=== PATIENT | female | born 1935 | race Caucasian/White ===

== ENCOUNTER 2021-03-31 17:04 | Inpatient (IN) | payer MEDICARE ==
[~2021-03-31] VITALS: Ht 152.4 cm; Wt 73.1 kg
[2021-03-31] MEDS ORDERED: ANTACID SUSP 30 ML UDC (MYLANTA) PO PRN (19:00)
[2021-03-31] MEDS ORDERED: diphenhydrAMINE 25 MG TAB (BENADRYL) PO PRN (19:00)
[2021-03-31] MEDS ORDERED: ONDANSETRON 4 MG (ZOFRAN) ORAL DISSOLVE TAB PO PRN (19:00)
[2021-03-31] MEDS ORDERED: BISACODYL 10 MG SUPP (DULCOLAX) PR PRN (19:00)
[2021-03-31] MEDS ORDERED: hydrALAZINE (APESOLINE) 20 MG/ML VIAL IV PRN (19:00)
[2021-03-31] MEDS ORDERED: ONDANSETRON 4 MG/2 ML (SDV) Z0FRAN IV PRN (19:00)
[2021-03-31] MEDS ORDERED: polyethylene glycoL POWDER 17 GM (MIRALAX) PACK PO PRN (19:00)
[2021-03-31 19:57] VITALS: BP 133/74
--- NOTE | 2021-03-31 19:57 | Diagnostic Imaging Report ---
EXAM: Chest 1 view, AP/PA only. INDICATION: Pneumonia. COMPARISON: None. FINDINGS: Sternotomy. Normal heart size and central pulmonary vascularity. Perihilar consolidation, greater on the left. No pleural effusion or pneumothorax. No acute osseous finding. IMPRESSION: Perihilar atelectasis or infiltrate, greater on the left. Dictated by: Dictated on workstation # [id number]
[2021-03-31] MEDS: NS IV 1000 ML 1,000 ML IV SCH (20:07)
[2021-03-31] MEDS: ENOXAPARIN 40 MG/0.4 ML (LOVENOX) SYR SC SCH (20:07)
[2021-03-31] MEDS: DOCUSATE SODIUM 100 MG (COLACE) CAP PO SCH (20:07)
[2021-03-31] MEDS: SENNOSIDES 8.6 MG (SENOKOT) TAB PO SCH (20:07)
[2021-03-31] MEDS: MELATONIN 3 MG TABLET PO PRN (20:08)
[2021-04-01] VITALS (12 sets, daily range): BP systolic 110–147; BP diastolic 57–77
[2021-04-01] MEDS: NS IV 1000 ML 1,000 ML IV SCH ×2 (00:57→19:29)
[2021-04-01] MEDS ORDERED: CARV12.53 PO (02:56)
[2021-04-01] MEDS ORDERED: SIMV40TA25 PO (02:56)
[2021-04-01] MEDS ORDERED: MIRA50TA PO (02:56)
[2021-04-01] MEDS ORDERED: OMEP40CA6 PO (02:56)
[2021-04-01] MEDS ORDERED: LEVO100T PO (02:56)
[2021-04-01] MEDS ORDERED: TRAM50TA3 PO (02:56)
[2021-04-01] MEDS ORDERED: TOLT4CAP26 PO (02:56)
[2021-04-01] MEDS ORDERED: DOXA2TAB2 PO (03:00)
[2021-04-01] MEDS ORDERED: SOLI5TAB7 PO (03:00)
[2021-04-01] MEDS ORDERED: ASPI-1238 PO (03:00)
[2021-04-01] MEDS ORDERED: HYDR25TA4 PO (03:00)
[2021-04-01 05:48] LABS: BASOPHILS # (AUTO) 0.1 10^3/uL (0.0-0.1); BASOPHILS % (AUTO) 1 % (0-10); EOSINOPHILS # (AUTO) 0.4 10^3/uL (0.0-0.3); EOSINOPHILS % (AUTO) 5 % (0-10); HEMATOCRIT 29 % (35-52); HEMOGLOBIN 8.9 g/dL (11.5-16.0); LYMPHOCYTES # (AUTO) 1.9 10^3/uL (1.0-4.0); LYMPHOCYTES % (AUTO) 27 % (12-44); MEAN CORPUSCULAR HEMOGLOBIN 26 pg (25-34); MEAN CORPUSCULAR HGB CONC 31 g/dL (32-36); MEAN CORPUSCULAR VOLUME 84 fL (80-99); MEAN PLATELET VOLUME 9.4 fL (9.0-12.2); MONOCYTES # (AUTO) 0.8 10^3/uL (0.0-1.0); MONOCYTES % (AUTO) 11 % (0-12); NEUTROPHILS # (AUTO) 3.9 10^3/uL (1.8-7.8); NEUTROPHILS % (AUTO) 55 % (42-75); PLATELET COUNT 325 10^3/uL (130-400); WHITE BLOOD COUNT 7.1 10^3/uL (4.3-11.0)
[2021-04-01] MEDS: MAGNESIUM 1 GM/100 ML IVPB 100 ML IV SCH ×3 (06:00→10:52)
[2021-04-01] MEDS: KCL 20 MEQ TAB (K-DUR) PO SCH (06:00)
[2021-04-01] MEDS: POTASSIUM CL 10MEQ/50ML IVPB 50 ML IV SCH ×3 (06:00→08:04)
[2021-04-01 06:03] LABS: POTASSIUM 3.5 MMOL/L (3.6-5.0)
[2021-04-01 06:04] LABS: CALCIUM 8.2 MG/DL (8.5-10.1)
[2021-04-01 06:08] LABS: CREATININE SERUM 0.6 MG/DL (0.60-1.30)
[2021-04-01 06:11] LABS: MAGNESIUM 1.7 MG/DL (1.6-2.4)
[2021-04-01] MEDS: DOCUSATE SODIUM 100 MG (COLACE) CAP PO SCH ×3 (08:03→20:16)
[2021-04-01] MEDS: SENNOSIDES 8.6 MG (SENOKOT) TAB PO SCH ×3 (08:03→20:19)
--- NOTE | 2021-04-01 09:27 | Consultation - Ortho ---
Consult - Ortho Subjective Date of Exam 04/01/21 Chief Complaint Right Hip Pain HPI/Events since last exam 85 year old female with multiple falls over past couple of weeks. Developed hip pain and had difficulty bearing weight. Seen at [facility] and diagnosed with right hip fracture involving the greater trochanter but concern for intertrochanteric extension. MRI later did demonstrate the extension of the fracture line. She was transferred here for stabilization of the fracture. Medical, Surgical History see admit H&P Social History see admit H&P Family History see admit H&P Review of Systems see admit H&P Allergies: Coded Allergies: No Allergy Information Available (Unverified , 03/31/21) Home Meds Reported Medications Solifenacin Succinate (Solifenacin Succinate) 5 Mg Tablet, 5 MG PO DAILY 04/01/21 Hydrochlorothiazide (Hydrochlorothiazide) 25 Mg Tablet, 25 MG PO DAILY 04/01/21 Doxazosin Mesylate (Doxazosin Mesylate) 2 Mg Tablet, 2 MG PO DAILY 04/01/21 Aspirin (Aspirin EC) 81 Mg Tablet.dr, 81 MG PO DAILY 04/01/21 Tolterodine Tartrate (Tolterodine Tartrate ER) 4 Mg Cap.er.24h, 4 MG PO HS 04/01/21 Carvedilol (Carvedilol) 12.5 Mg Tablet, 12.5 MG PO BID 04/01/21 Mirabegron (Myrbetriq) 50 Mg Tab.er.24h, 50 MG PO DAILY 04/01/21 Simvastatin (Simvastatin) 40 Mg Tablet, 40 MG PO DAILY 04/01/21 Tramadol HCl (Tramadol HCl) 50 Mg Tablet, 100 MG PO Q8H PRN for PAIN-MODERATE (5-7) 04/01/21 Omeprazole (Omeprazole) 40 Mg Capsule.dr, 40 MG PO DAILY 04/01/21 Levothyroxine Sodium (Synthroid) 100 Mcg Tablet, 100 MCG PO DAILY 04/01/21 Objective Exam Right Hip: Skin intact, no shortening, +DF of ankle, distal pulses palpable Vital Signs Vital Signs Date Time Temp Pulse Resp B/P (MAP) Pulse Ox O2 Delivery O2 Flow Rate FiO2 04/01/21 08:00 Room Air 04/01/21 08:00 36.0 68 20 144/70 (94) 95 Room Air 11/18/21 04:09 36.2 61 20 134/77 (96) 96 Room Air 04/01/21 00:15 36.7 71 20 128/58 (81) 95 Room Air 03/31/21 19:57 36.1 74 20 133/74 (93) 97 Room Air 03/31/21 19:15 95 Room Air I & O 04/01/21 06:59 Intake Total 225 ml Output Total 400 ml Balance -175 ml Lab Results Laboratory Tests 04/01/21 05:40: White Blood Count 7.1, Red Blood Count 3.49L, Hemoglobin 8.9L, Hematocrit 29L, Mean Corpuscular Volume 84, Mean Corpuscular Hemoglobin 26, Mean Corpuscular Hemoglobin Concent 31L, Red Cell Distribution Width 17.5H, Platelet Count 325, Mean Platelet Volume 9.4, Immature Granulocyte % (Auto) 1, Neutrophils (%) (Auto) 55, Lymphocytes (%) (Auto) 27, Monocytes (%) (Auto) 11, Eosinophils (%) (Auto) 5, Basophils (%) (Auto) 1, Neutrophils # (Auto) 3.9, Lymphocytes # (Auto) 1.9, Monocytes # (Auto) 0.8, Eosinophils # (Auto) 0.4H, Basophils # (Auto) 0.1, Immature Granulocyte # (Auto) 0.1, Sodium Level 138, Potassium Level 3.5L, Chloride Level 104, Carbon Dioxide Level 25, Anion Gap 9, Blood Urea Nitrogen 7, Creatinine 0.60, Estimat Glomerular Filtration Rate 95, BUN/Creatinine Ratio 12, Glucose Level 88, Calcium Level 8.2L, Magnesium Level 1.7, Procalcitonin 0.04 Imaging Outside films reviewed--x-ray, CT, and MRI--nondisplaced right intertrochanteric femur fracture Assessment and Plan Assessment Right Intertrochanteric Femur Fracture Problem List Right Intertrochanteric Femur Fracture Plan I have recommended proceeding with IM nailing of the right IT femur fracture. Nature of the procedure and the postoperative course were discussed. Risks and benefits were discussed. Will tentatively plan to proceed this PM. Final Diagonsis Right Intertrochanteric Femur Fracture Level of the visit: Level 3 PARMINEDR CHAVEZ MD Apr 01, 2021 09:27
[2021-04-01] MEDS ORDERED: ceFAZolin INJECTION 1,000 MG VIAL IV ONE (09:30)
--- NOTE | 2021-04-01 09:42 | Physical Therapy Progress Note ---
Therapy Progress Note Patient to have surgery to repair right hip. PT will receive orders from orthopedic surgeon. EUSEBIA XAVIER PT Apr 01, 2021 09:42
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
--- NOTE | 2021-04-01 10:39 | Occ Therapy Progress Note ---
Therapy Progress Note Pt is scheduled to have surgery to repair R hip. OT will need new orders from orthopedic surgeon when pt is able to actively participate in OT tx. ANTHONY MINA OT Apr 01, 2021 10:39
[2021-04-01] MEDS ORDERED: LACTATED RINGERS 1,000 ML IV PRN (13:30)
[2021-04-01] MEDS ORDERED: fentaNYL INJ 100 MCG/2 ML AMP ONE (14:59)
[2021-04-01] MEDS ORDERED: proPOfol 200 MG/20 ML (DIPRIVAN) VIAL IV ONE (14:59)
[2021-04-01] MEDS ORDERED: LIDOCAINE PF 2% 5 ML (XYLOCAINE) VIAL ONE (14:59)
[2021-04-01] MEDS ORDERED: HYDR12.56 PO (15:01)
[2021-04-01] MEDS ORDERED: ceFAZolin INJECTION 1,000 MG ONE (16:27)
[2021-04-01] MEDS ORDERED: ROPIVACAINE 5MG/ML 30ML VIAL ONE (17:06)
[2021-04-01] MEDS ORDERED: SEVOFLURANE (ULTANE) 15 ML INHAL SOLN ONE (17:14)
--- NOTE | 2021-04-01 17:29 | Operative Report - Ortho ---
Operative Report Surgeon (s)/Solder Making Supervisor (s) Surgeon PARMINDER CHAVEZ MD Solder Making Supervisor n/a Pre-Operative Diagnosis Right Intertrochanteric Femur Fracture Post-Operative Diagnosis same Operative Report Date of Procedure: Apr 01, 2021 Name of Procedure Performed: Intramedullary nailing of right intertrochanteric femur fracture Description & Findings After obtaining informed consent and marking the patient in the preoperative holding area, the patient was administered IV antibiotics and taken to the operating room. Anesthesia was induced. Patient was transferred to the fracture table. Surgical timeout was taken. The right lower extremity was placed in the traction spar and the left was placed in the well leg gregg. The right lower extremity was prepped and draped in the usual sterile fashion. Incision was made just proximal to the greater trochanter. Blunt dissection was performed down to the tip of the trochanter. A guide wire was placed through a trochanteric entry point. Position of the wire was confirmed using C-arm. An entry reamer was then placed over the guidewire and reamed to the level of the lesser trochanter. A trochanteric gamma nail with a 125 degree angle was selected and assembled on the back table. Nail was inserted through the trochanteric entry point and seated by hand. Position of the nail was confirmed using C-arm. A guide wire was placed for the cephalomedullary screw. Version of the wire was obtained on the lateral. Measurement was taken and the reamer was set to 95 mm. Reamer was used over the guidewire and then the cephalomedullary screw was placed. Position of the cephalomedullary screw was confirmed on C-arm. Set screw was then tightened onto the cephalomedullary screw and then backed off 1/4 turn. Attention was then turned to the distal screw and using the provided guides, a 35 mm screw was placed through the dynamic portion of the distal slot. Final C arm images were obtained, demonstrated appropriate placement of hardware with adequate reduction, and were transferred to PACS. Incision sites were irrigated with normal saline. Closed subcutaneously with 2- 0 vicryl and skin was closed with monae. Dressed with xeroform, 4x4s, ABD, and tape. Patient tolerated the procedure well and was stable to the recovery room. Anesthesia Type General Estimated Blood Loss 100 mL Specimen(s) collected/removed None PARMINDER CHAVEZ MD Apr 01, 2021 17:29
[2021-04-01] MEDS ORDERED: ONDANSETRON 4 MG/2 ML (SDV) Z0FRAN IVP PRN (17:30)
[2021-04-01] MEDS ORDERED: morphine INJ 10 MG/ML 1ML (SYR OR VIAL) IVP ONE (17:30)
[2021-04-01] MEDS: ENOXAPARIN 40 MG/0.4 ML (LOVENOX) SYR SC SCH (18:19)
--- NOTE | 2021-04-01 19:34 | Diagnostic Imaging Report ---
INDICATION: Right hip pinning. IMPRESSION: 63 seconds of fluoroscopy was provided during a right hip pinning. Dictated by: Dictated on workstation # [id number]
[2021-04-01] MEDS ORDERED: morphine INJ 4 MG/ML 1 ML (VIAL/SYRINGE) ONE (20:05)
[2021-04-01] MEDS: MELATONIN 3 MG TABLET PO PRN (20:07)
[2021-04-01] MEDS: morphine INJ 4 MG/ML 1 ML (VIAL/SYRINGE) IVP PRN (20:08)
[2021-04-02 00:06] VITALS: BP 133/60
[2021-04-02] MEDS: morphine INJ 4 MG/ML 1 ML (VIAL/SYRINGE) IVP PRN ×3 (03:34→15:02)
[2021-04-02 03:47] VITALS: BP 141/66
[2021-04-02] MEDS: KCL 20 MEQ TAB (K-DUR) PO SCH ×2 (06:00)
[2021-04-02] MEDS: MAGNESIUM 1 GM/100 ML IVPB 100 ML IV SCH ×2 (06:00)
[2021-04-02] MEDS: POTASSIUM CL 10MEQ/50ML IVPB 50 ML IV SCH ×2 (06:00)
[2021-04-02 06:11] LABS: CALCIUM 7.6 MG/DL (8.5-10.1)
[2021-04-02 06:15] LABS: CREATININE SERUM 0.59 MG/DL (0.60-1.30)
[2021-04-02 06:17] LABS: MAGNESIUM 1.9 MG/DL (1.6-2.4)
[2021-04-02 08:00] VITALS: BP 116/57
[2021-04-02] MEDS: DOCUSATE SODIUM 100 MG (COLACE) CAP PO SCH ×2 (08:02→21:05)
[2021-04-02] MEDS: SENNOSIDES 8.6 MG (SENOKOT) TAB PO SCH ×2 (08:02→21:05)
[2021-04-02 08:10] LABS: HEMOGLOBIN 8.5 g/dL (11.5-16.0)
--- NOTE | 2021-04-02 08:53 | Progress Note - Ortho ---
Progress Note Subjective Date of Exam 04/02/21 Chief Complaint POD #1 Right Hip Gamma Nail HPI/Events since last exam Had difficulty with pain through the night. Appears comfortable this AM. Concerned about starting to bear weight on that side. Wants to return to [facility] for swing bed if needed. Review of Systems not obtained Allergies: Coded Allergies: No Allergy Information Available (Unverified , 03/31/21) Home Meds Reported Medications Hydrochlorothiazide (Hydrochlorothiazide) 12.5 Mg Tablet, 12.5 MG PO DAILY, TAB 04/01/21 Aspirin (Aspirin EC) 81 Mg Tablet.dr, 81 MG PO DAILY 04/01/21 Tolterodine Tartrate (Tolterodine Tartrate ER) 4 Mg Cap.er.24h, 4 MG PO HS, TAB 04/01/21 Carvedilol (Carvedilol) 12.5 Mg Tablet, 12.5 MG PO BID, TAB 04/01/21 Mirabegron (Myrbetriq) 50 Mg Tab.er.24h, 50 MG PO DAILY, TAB 04/01/21 Simvastatin (Simvastatin) 40 Mg Tablet, 40 MG PO DAILY, TAB 04/01/21 Tramadol HCl (Tramadol HCl) 50 Mg Tablet, 50-100 MG PO Q8H PRN for PAIN-MODERATE (5-7) 04/01/21 Omeprazole (Omeprazole) 40 Mg Capsule.dr, 40 MG PO DAILY, CAP 04/01/21 Levothyroxine Sodium (Synthroid) 100 Mcg Tablet, 100 MCG PO DAILY 04/01/21 Discontinued Reported Medications Solifenacin Succinate (Solifenacin Succinate) 5 Mg Tablet, 5 MG PO DAILY 04/01/21 Hydrochlorothiazide (Hydrochlorothiazide) 25 Mg Tablet, 25 MG PO DAILY 04/01/21 Doxazosin Mesylate (Doxazosin Mesylate) 2 Mg Tablet, 2 MG PO DAILY 04/01/21 Objective Exam Right Hip: Dressing C/D/I, +DF of ankle, no s/s of DVT Vital Signs Vital Signs Date Time Temp Pulse Resp B/P (MAP) Pulse Ox O2 Delivery O2 Flow Rate FiO2 04/02/21 08:00 36.2 88 18 116/57 (76) 98 Nasal Cannula 2.00 04/02/21 03:47 36.2 90 18 141/66 (91) 94 Nasal Cannula 2.00 04/02/21 00:06 36.0 89 18 133/60 (84) 96 Nasal Cannula 2.00 04/01/21 20:05 Room Air 04/01/21 19:57 35.9 73 18 134/60 (84) 90 Room Air 04/01/21 19:46 2.00 04/01/21 18:00 Room Air 04/01/21 18:00 36.8 14 134/57 (82) 96 Room Air 04/01/21 17:50 14 126/67 (86) 96 Nasal Cannula 2 04/01/21 17:45 Nasal Cannula 2 04/01/21 17:40 14 116/58 (77) 95 Nasal Cannula 2 04/01/21 17:30 OxyMask 2 04/01/21 17:30 14 137/62 (87) 94 OxyMask 2 04/01/21 17:20 14 120/62 (81) 94 OxyMask 4 04/01/21 17:18 37.4 14 110/58 (75) 95 OxyMask 6 04/01/21 17:18 OxyMask 6 04/01/21 15:55 36.6 71 18 141/63 (89) 95 Room Air 04/01/21 11:44 36.1 67 20 147/66 (93) 96 Room Air I & O 04/02/21 07:00 Intake Total 1375 ml Output Total 880 ml Balance 495 ml Lab Results Laboratory Tests 04/01/21 09:25: SARS-CoV-2 RNA (RT-PCR) Not Detected 04/02/21 05:28: Hemoglobin 8.5L, Hematocrit 28L, Sodium Level 134L, Potassium Level 4.0, Chloride Level 102, Carbon Dioxide Level 22, Anion Gap 10, Blood Urea Nitrogen 7, Creatinine 0.59L, Estimat Glomerular Filtration Rate 97, BUN/Creatinine Ratio 12, Glucose Level 100, Calcium Level 7.6L, Magnesium Level 1.9 Assessment and Plan Assessment s/p Intramedullary Nailing of Right Intertrochanteric Femur Fracture Problem List s/p Intramedullary Nailing of Right Intertrochanteric Femur Fracture Plan PT/OT, DVT prophylaxis, Transfer back to [facility] when ready to proceed with swing Final Diagonsis s/p Intramedullary Nailing of Right Intertrochanteric Femur Fracture Level of the visit: Level 3 (global) PARMINDER CHAVEZ MD Apr 02, 2021 08:53
[2021-04-02] MEDS: NS IV 1000 ML 1,000 ML IV SCH (09:01)
--- NOTE | 2021-04-02 10:34 | Physical Therapy Evaluation ---
PT Evaluation-General Medical Diagnosis Admission Date Mar 31, 2021 at 18:45 Medical Diagnosis: right hip fracture Onset Date: Mar 31, 2021 Therapy Diagnosis Therapy Diagnosis: generalized weakness/debility/impaired mobility Precautions Precautions/Isolations: Fall Prevention, Standard Precautions Weight Bear Status Right Lower Extremity: Right Weight Bearing/Tolerated Left Lower Extremity: Left Full Weight Bearing Referral Physician: Barbara Reason for Referral: Evaluation/Treatment Medical History Pertinent Medical History: HTN, Hypothroidism Current History multiple falls per patient report/transfer from [facility] due to hip fracture Reviewed History: Yes Social History Home: Single Level Current Living Status: Alone Entry Into Home: Stairs With Railing PT Steps Into Home: 3 Prior Prior Level of Function SCALE: Activities may be completed with or without assistive devices. 2-Nbhpjqlzrl-cvfmxrr completes the activity by him/herself with no assistance from a helper. 5-Set-up or Clean-up Assistance-helper sets up or cleans up; patient completes activity. [place] assists only prior to or following the activity. 4-Supervision or Touching Assistance-helper provides verbal cues and/or touching/steadying and/or contact guard assistance as patient completes activity. Assistance may be provided throughout the activity or intermittently. 3-Partial/Moderate Assistance-helper does LESS THAN HALF the effort. [place] lifts, holds or supports trunk or limbs, but provides less than half the effort. 2-Substantial/Maximal Assistance-helper does MORE THAN HALF the effort. [place] lifts or holds trunk or limbs and provides more than half the effort. 5-Iftwibzym-gkzswy does ALL the effort. Patient does none of the effort to complete the activity. Or, the assistance of 2 or more helpers is required for the patient to complete the activity. If activity was not attempted, code reason: 7-Patient Refused. 9-Not Applicable-not attempted and the patient did not perform the activity before the current illness, exacerbation or injury. 10-Not Attempted due to Environmental Limitations-(lack of equipment, weather restraints, etc.). 88-Not Attempted due to Medical Conditions or Safety Concerns. Bed Mobility: 6 Transfers (B,C,W/C): 6 Gait: 6 Stairs: 6 Indoor Mobility (Ambulation): Independent Stairs: Independent Prior Devices Use: None PT Evaluation-Current Subjective Patient reluctantly agrees to PT. Pain Numeric Pain Scale: 10-Worst Possible Pain Location: Right Location Body Site: Hip Pain Description: Acute Objective Patient Orientation: Person, Time, Situation Attachments: Oxygen, IV ROM/Strength ROM Lower Extremities right LE limited due to pain/left LE WFL Strength Lower Extremities right LE 2-/5 grossly/left LE 3-/5 grossly Integumentary/Posture Integumentary refer to nursing notes Bladder Incontinence: Yes Posture WFL Neuromuscular (Tone, Coordination, Reflexes) grossly intact Sensory Vision: Functional Hearing: Functional Transfers Roll Left to Right (QC): 1 (x 2) Sit to Lying (QC): 1 (x 2) Lying to Sitting/Side of Bed(Q: 1 (x 2) Sit to Stand (QC): 7 Chair/Xct-ci-Zbean Xfer(QC): 7 Gait Does the Patient Walk?: No and Walking Goal IS indicated Walk 10 feet (QC): 88 Walk 50 ft with 2 Turns(QC): 88 Walk 150 ft (QC): 88 Balance Sitting Static: Fair Sitting Dynamic: Fair Assessment/Needs 85 y.o. female, will benefit from skilled PT to address functional strength and mobility. Patient currently tolerates minimal activity and yells in pain. Per report, patient has a "sensitivity" to pain medication. Due to patient low tolerance with activity, PT will begin with 6/wk and increase to 11/wk as patient tolerates more. Rehab Potential: Fair PT Short Term Goals Short Term Goals Time Frame: Apr 13, 2021 Roll Left & Right: 2 Sit to lyin Lying to sitting on side of be: 2 Sit to stand: 2 Chair/mza-iu-dbhpr transfer: 2 PT Acoustical Carpenter Goals Nursing Home Goals PT Nursing Home Goals Time Frame: May 08, 2021 Roll Left & Right (QC): 3 Sit to Lying (QC): 3 Lying-Sitting on Side/Bed(QC): 3 Sit to Stand (QC): 3 Chair/Apv-vo-Qjwur Xfer(QC): 3 Toilet Transfer (QC): 3 Walk 10 feet (QC): 3 Walk 50ft with 2 Turns (QC): 3 Walk 150 ft (QC): 3 PT Plan Problem List Problem List: Activity Tolerance, Functional Strength, Safety, Balance, Gait, Transfer, Bed Mobility, ROM, Other (pain control) Treatment/Plan Treatment Plan: Continue Plan of Care Treatment Plan: Bed Mobility, Education, Functional Activity Ciera, Functional Strength, Gait, Safety, Therapeutic Exercise, Transfers Treatment Duration: May 08, 2021 Frequency: 6 times per week (then increase to 11/wk as patient improves with pain tolerance) Estimated Hrs Per Day: .25 hour per day Patient and/or Family Agrees t: Yes Discharge Recommendations Therapy Discharge Recommendati: Other, See Comments (long term) Time/GCodes Time In: 945 Time Out: 1000 Total Billed Treatment Time: 15 [facility] EUSEB[facility] XAVIER PT Apr 02, 2021 10:33
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
[2021-04-02] MEDS ORDERED: RT-ALBUTEROL SULF 2.5 MG/3 ML PRE-MIX VIAL IH PRN (11:30)
[2021-04-02] MEDS ORDERED: EPINEPHrine INJECTION 1 MG/ML AMP IM PRN (11:30)
[2021-04-02] MEDS ORDERED: HYDROCORTISONE 100 MG/2 ML (Solu-CORTEF) VIAL IV PRN (11:30)
[2021-04-02] MEDS ORDERED: NS IV 500 ML 500 ML IV SCH (11:30)
[2021-04-02] MEDS ORDERED: diphenhydrAMINE 50 MG/ML INJ (BENADRYL) IV PRN (11:30)
[2021-04-02 11:45] VITALS: BP 128/60
[2021-04-02] MEDS ORDERED: IRON DEXTRAN INJECTION 25 MG in NS (IVPB) 5.75 ML IV NR (12:00)
[2021-04-02] MEDS ORDERED: IRON DEXTRAN INJECTION 1,000 MG in NS (IVPB) 250 ML IV NR (12:30)
--- NOTE | 2021-04-02 13:51 | Occupational Therapy Eval ---
OT Evaluation-General/PLF Medical Diagnosis Admission Date Mar 31, 2021 at 18:45 Medical Diagnosis: right hip fracture Onset Date: Mar 31, 2021 Therapy Diagnosis Therapy Diagnosis: decreased ADL status Precautions Precautions/Isolations: Fall Prevention, Standard Precautions Referral Physician: Barbara Referral Reason: Evaluation/Treatment Medical History Pertinent Medical History: HTN, Hypothroidism Additional Medical History HTN, hypothyroidism, GERD, Current History s/p R IM nail 04/01/21. Pt transferred from [facility] due to hip fracture 03/28/21 requiring surgical intervention. Social History Home: Single Level Current Living Status: Alone Entry Into Home: Stairs With Railing Steps Into Home: 3 ADL-Prior Level of Function SCALE: Activities may be completed with or without assistive devices. 8-Ipsuhbnqps-kbcfsmj completes the activity by him/herself with no assistance from a helper. 5-Set-up or Clean-up Assistance-helper sets up or cleans up; patient completes activity. [place] assists only prior to or following the activity. 4-Supervision or Touching Assistance-helper provides verbal cues and/or touching/steadying and/or contact guard assistance as patient completes activity. Assistance may be provided throughout the activity or intermittently. 3-Partial/Moderate Assistance-helper does LESS THAN HALF the effort. [place] lifts, holds or supports trunk or limbs, but provides less than half the effort. 2-Substantial/Maximal Assistance-helper does MORE THAN HALF the effort. [place] lifts or holds trunk or limbs and provides more than half the effort. 3-Ovqdpjnsd-dvfclu does ALL the effort. Patient does none of the effort to complete the activity. Or, the assistance of 2 or more helpers is required for the patient to complete the activity. If activity was not attempted, code reason: 7-Patient Refused. 9-Not Applicable-not attempted and the patient did not perform the activity before the current illness, exacerbation or injury. 10-Not Attempted due to Environmental Limitations-(lack of equipment, weather restraints, etc.). 88-Not Attempted due to Medical Conditions or Safety Concerns. ADL PLOF Comments Pt reports IND with ADLs and functional mobility at PLOF, no AD/AE. She lives by herself, has a walk in shower with a shower chair. Self Care: Independent Functional Cognition: Independent DME/Equipment: Bath Chair, Shower OT Current Status Subjective Pt in bed, having difficulty staying awake during session. Pt reports this is due to pain medications, pt's nurse aware. Mental Status/Objective Patient Orientation: Person, Place, Situation Current Upper Extremity ROM WFL, BUE shoulder flexion to approx 150 degrees Upper Extremity Coordination WFL Upper Extremity Strength grossly 3/5 ADL-Treatment Eating (QC): 5 (set up based on clincial judgment) Oral Hygiene (QC): 5 (based on clincial judgment and pt report.) Shower/Bathe Self (QC): 1 (based on clincial judgment, assist x2 for task.) Lower Body Dressing (QC): 1 (based on clincial judgment, assist x2 for task.) On/Off Footwear (QC): 1 (based on clincial judgment.) Toileting Hygiene (QC): 1 (based on clincial judgment, assist x2 for task.) Other Treatments Pt in bed, OT introduced self to pt and educated pt on purpose and benefit of OT. Pt verbalized understanding. Pt provided information about PLOF and home set up to her ability, but she kept closing her eyes and falling asleep. Pt easily awoken throughout session. Pt declined oral care as she has already completed earlier today. Pt had hair brush in her hands, able to comb her hair with set up assistance. Pt participated in UE screen. Pt currently unsafe to perform OOB activities on this date, as she keeps falling asleep during session. Pt requests to rest at this time. Per PT evaluation, pt currently requires dependent assistance for rolling left to right and supine to sit EOB. Post tx, pt in bed, call light in reach and all needs met. Education OT Patient Education: Correct positioning, Modified ADL techniques, Progress toward Goal/Update tx plan, Purpose of tx/functional activities, Rehab process Teaching Recipient: Patient Teaching Methods: Discussion Response to Teaching: Reinforcement Needed OT Data Processing Control Clerk Goals Data Processing Control Clerk Goals Time Frame: Apr 16, 2021 Eating (QC): 6 Oral Hygiene (QC): 6 Toileting Hygiene (QC): 3 Shower/Bathe Self (QC): 3 Upper Body Dressing (QC): 5 Lower Body Dressing (QC): 3 On/Off Footwear (QC): 3 Additional Goals: 1-Demonstrate ADL Tasks, 2-Verbalize Understanding, 3-ImproveStrength/Ciera 1=Demonstrate adherence to instructed precautions during ADL tasks. 2=Patient will verbalize/demonstrate understanding of assistive devices/modifications for ADL. 3=Patient will improve strength/tolerance for activity to enable patient to perform ADL's. OT Education/Plan Problem List/Assessment Assessment: Decreased Activ Tolerance, Decreased UE Strength, Impaired Funct Balance, Impaired I ADL's, Impaired Self-Care Skills Discharge Recommendations Plan/Recommendations: Continue POC Therapy Discharge Recommendati: Other, See Comments (SNF) Treatment Plan/Plan of Care Patient would benefit from OT for education, treatment and training to promote independence in ADL's, mobility, safety and/or upper extremity function for ADL's. Plan of Care: ADL Retraining, Functional Mobility, UE Funct Exercise/Act Treatment Duration: Apr 16, 2021 Frequency: 3 times per week (3-5 times per week) Rehab Potential: Fair Time/GCodes Start Time: 13:20 Stop Time: 13:30 Total Time Billed (hr/min): 10 Billed Treatment Time 1, ANTHONY [facility] OT Apr 02, 2021 13:51
--- NOTE | 2021-04-02 14:18 | Anesthesia-General Post-Op ---
General Patient Condition Mental Status/LOC: Same as Preop Cardiovascular: Satisfactory Nausea/Vomiting: Absent Respiratory: Satisfactory Pain: Controlled Complications: Absent Post Op Complications Complications None Follow Up Care/Instructions Patient Instructions None needed. Anesthesia/Patient Condition Patient Condition Patient is doing well, no complaints, stable vital signs, no apparent adverse anesthesia problems. No complications reported per nursing. ЕЛЕНА SUAREZ CRNA Apr 02, 2021 14:18
[2021-04-02 15:49] VITALS: BP 122/59
[2021-04-02] MEDS ORDERED: LIDOCAINE UROJET 2% GEL 10 ML PKG ONE (16:55)
[2021-04-02] MEDS: ENOXAPARIN 40 MG/0.4 ML (LOVENOX) SYR SC SCH (18:12)
[2021-04-02 20:00] VITALS: BP 127/61
[2021-04-03 00:08] VITALS: BP 112/53
[2021-04-03] MEDS: NS IV 1000 ML 1,000 ML IV SCH ×2 (00:22→15:37)
[2021-04-03 03:44] VITALS: BP 136/73
[2021-04-03 05:50] LABS: HEMOGLOBIN 7.4 g/dL (11.5-16.0)
[2021-04-03 06:09] LABS: POTASSIUM 3.9 MMOL/L (3.6-5.0)
[2021-04-03] MEDS: POTASSIUM CL 10MEQ/50ML IVPB 50 ML IV SCH (06:12)
[2021-04-03] MEDS: KCL 20 MEQ TAB (K-DUR) PO SCH (06:13)
[2021-04-03 06:14] LABS: CREATININE SERUM 0.53 MG/DL (0.60-1.30)
[2021-04-03 06:16] LABS: MAGNESIUM 1.7 MG/DL (1.6-2.4)
[2021-04-03] MEDS: MAGNESIUM 1 GM/100 ML IVPB 100 ML IV SCH ×3 (06:22→08:22)
[2021-04-03 08:00] VITALS: BP 131/60
[2021-04-03] MEDS: DOCUSATE SODIUM 100 MG (COLACE) CAP PO SCH ×2 (08:23→21:18)
[2021-04-03] MEDS: SENNOSIDES 8.6 MG (SENOKOT) TAB PO SCH ×2 (08:23→21:18)
[2021-04-03] MEDS: morphine INJ 4 MG/ML 1 ML (VIAL/SYRINGE) IVP PRN (08:24)
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
--- NOTE | 2021-04-03 10:52 | Physical Therapy Daily Note ---
PT Daily Note-Current Subjective Pt in bed, agreeable with encouragement. Pt apprehensive with all movement, actively resisting assistance. No pain rating provided. Mental Status Patient Orientation: Person, Place, Time, Situation Attachments: SCD's, Oxygen, IV Transfers SCALE: Activities may be completed with or without assistive devices. 8-Spwxhjwsuf-lgdzlzc completes the activity by him/herself with no assistance from a helper. 5-Set-up or Clean-up Assistance-helper sets up or cleans up; patient completes activity. [place] assists only prior to or following the activity. 4-Supervision or Touching Assistance-helper provides verbal cues and/or touching/steadying and/or contact guard assistance as patient completes activity. Assistance may be provided throughout the activity or intermittently. 3-Partial/Moderate Assistance-helper does LESS THAN HALF the effort. [place] lifts, holds or supports trunk or limbs, but provides less than half the effort. 2-Substantial/Maximal Assistance-helper does MORE THAN HALF the effort. [place] lifts or holds trunk or limbs and provides more than half the effort. 8-Sqtnsdxut-bruxit does ALL the effort. Patient does none of the effort to complete the activity. Or, the assistance of 2 or more helpers is required for the patient to complete the activity. If activity was not attempted, code reason: 7-Patient Refused. 9-Not Applicable-not attempted and the patient did not perform the activity before the current illness, exacerbation or injury. 10-Not Attempted due to Environmental Limitations-(lack of equipment, weather restraints, etc.). 88-Not Attempted due to Medical Conditions or Safety Concerns. Roll Left & Right (QC): 1 Sit to Lying (QC): 1 Lying to Sitting/Side of Bed(Q: 1 Sit to Stand (QC): 1 Attempted sit<->stand to FWW with A x 2. Pt stood with flexed posture, retropulsive for grossly 30" before insisting she needed to sit. Attempted side steps to HOB, Pt unable. After seated break, max A x 1 with Bobath technique to stand to allow bed linen change. Supine<->sit lazy elías technique with A x 2. In bed with all needs met, O2 and SCDs in situ and pillow between the knees. Weight Bearing Right Lower Extremity: Right Weight Bearing/Tolerated Left Lower Extremity: Left Full Weight Bearing Gait Training Does the Patient Walk?: No and Walking Goal IS indicated Treatments Transfer training. Attempted LE exercises, Pt unwilling to actively move (L) LE due to pain. In bed with all needs met post treatment. Assessment Current Status: Fair Progress Pt still dependent with all functional mobility but not crying out in pain this date. PT Short Term Goals Short Term Goals Time Frame: Apr 13, 2021 Roll Left & Right: 2 Sit to lyin Lying to sitting on side of be: 2 Sit to stand: 2 Chair/ely-pn-qgxgw transfer: 2 PT Snf Goals Paper Feeder Goals PT Snf Goals Time Frame: May 08, 2021 Roll Left & Right (QC): 3 Sit to Lying (QC): 3 Lying-Sitting on Side/Bed(QC): 3 Sit to Stand (QC): 3 Chair/Gbc-jw-Udlxa Xfer(QC): 3 Toilet Transfer (QC): 3 Walk 10 feet (QC): 3 Walk 50ft with 2 Turns (QC): 3 Walk 150 ft (QC): 3 PT Plan Problem List Problem List: Activity Tolerance, Functional Strength, Safety, Balance, Gait, Transfer, Bed Mobility, ROM Treatment/Plan Treatment Plan: Continue Plan of Care Treatment Plan: Bed Mobility, Education, Functional Activity Ciera, Functional Strength, Gait, Safety, Therapeutic Exercise, Transfers Treatment Duration: May 08, 2021 Frequency: 6 times per week (then increase to 11/wk as patient improves with pain tolerance) Estimated Hrs Per Day: .25 hour per day Patient and/or Family Agrees t: Yes Discharge Recommendations Therapy Discharge Recommendati: 24 Hour Supervision, Post Acute PT Time/GCodes Time In: 49 Time Out: 1007 Total Billed Treatment Time: 18 Total Billed Treatment 1, FA x 18' FELIBERTO GRAFF DPAmos Apr 03, 2021 10:52
[2021-04-03 11:03] VITALS: BP 130/60
[2021-04-03 15:50] VITALS: BP 136/79
[2021-04-03 19:42] VITALS: BP 122/58
[2021-04-03] MEDS: ENOXAPARIN 40 MG/0.4 ML (LOVENOX) SYR SC SCH (21:19)
[2021-04-04] VITALS (7 sets, daily range): BP systolic 117–154; BP diastolic 71–84
[2021-04-04] MEDS: NS IV 1000 ML 1,000 ML IV SCH ×3 (05:32→18:57)
[2021-04-04 06:24] LABS: HEMOGLOBIN 7.6 g/dL (11.5-16.0)
[2021-04-04 07:06] LABS: POTASSIUM 3.6 MMOL/L (3.6-5.0)
[2021-04-04] MEDS: POTASSIUM CL 10MEQ/50ML IVPB 50 ML IV SCH (07:10)
[2021-04-04] MEDS: KCL 20 MEQ TAB (K-DUR) PO SCH (07:11)
[2021-04-04 07:14] LABS: MAGNESIUM 2.1 MG/DL (1.6-2.4)
[2021-04-04] MEDS: MAGNESIUM 1 GM/100 ML IVPB 100 ML IV SCH (08:28)
[2021-04-04] MEDS: DOCUSATE SODIUM 100 MG (COLACE) CAP PO SCH ×2 (08:32→20:53)
[2021-04-04] MEDS: SENNOSIDES 8.6 MG (SENOKOT) TAB PO SCH ×2 (08:32→20:53)
[2021-04-04] MEDS ORDERED: KCL 20 MEQ TAB (K-DUR) PO NR (09:00)
[2021-04-04] MEDS: morphine INJ 4 MG/ML 1 ML (VIAL/SYRINGE) IVP PRN (09:39)
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
[2021-04-04] MEDS: ACETAMINOPHEN 325 MG TABLET PO PRN (14:40)
[2021-04-04] MEDS: ENOXAPARIN 40 MG/0.4 ML (LOVENOX) SYR SC SCH (18:58)
[2021-04-04] MEDS: TOLTERODINE LA 4 MG (DETROL) CAP PO SCH (20:53)
[2021-04-05 04:10] VITALS: BP 135/72
[2021-04-05] MEDS: LEVOTHYROXINE 100 MCG (LEVOTHROID) TAB PO SCH (06:09)
[2021-04-05] MEDS: MAGNESIUM 1 GM/100 ML IVPB 100 ML IV SCH (07:22)
[2021-04-05] MEDS: POTASSIUM CL 10MEQ/50ML IVPB 50 ML IV SCH (07:22)
[2021-04-05] MEDS: KCL 20 MEQ TAB (K-DUR) PO SCH (07:25)
[2021-04-05] MEDS: NS IV 1000 ML 1,000 ML IV SCH (07:39)
[2021-04-05 08:00] VITALS: BP 146/61
[2021-04-05 08:18] LABS: BASOPHILS % (AUTO) 1 % (0-10); EOSINOPHILS # (AUTO) 0.4 10^3/uL (0.0-0.3); EOSINOPHILS % (AUTO) 5 % (0-10); HEMATOCRIT 25 % (35-52); HEMOGLOBIN 7.6 g/dL (11.5-16.0); LYMPHOCYTES # (AUTO) 1.6 10^3/uL (1.0-4.0); LYMPHOCYTES % (AUTO) 22 % (12-44); MEAN CORPUSCULAR HEMOGLOBIN 26 pg (25-34); MEAN CORPUSCULAR HGB CONC 31 g/dL (32-36); MEAN CORPUSCULAR VOLUME 85 fL (80-99); MEAN PLATELET VOLUME 9.3 fL (9.0-12.2); MONOCYTES # (AUTO) 0.9 10^3/uL (0.0-1.0); MONOCYTES % (AUTO) 12 % (0-12); NEUTROPHILS # (AUTO) 4.2 10^3/uL (1.8-7.8); NEUTROPHILS % (AUTO) 58 % (42-75); PLATELET COUNT 437 10^3/uL (130-400); WHITE BLOOD COUNT 7.2 10^3/uL (4.3-11.0)
[2021-04-05 08:31] LABS: ALBUMIN 2.4 GM/DL (3.2-4.5); BILIRUBIN,TOTAL 0.6 MG/DL (0.1-1.0); CALCIUM 8.2 MG/DL (8.5-10.1); CREATININE SERUM 0.55 MG/DL (0.60-1.30); MAGNESIUM 1.8 MG/DL (1.6-2.4); POTASSIUM 3.7 MMOL/L (3.6-5.0); TOTAL PROTEIN 5.4 GM/DL (6.4-8.2)
[2021-04-05] MEDS ORDERED: KCL 20 MEQ TAB (K-DUR) PO ONE (09:00)
[2021-04-05] MEDS ORDERED: NON-FORMULARY MEDICATION 1 EA EA (Omeprazole 40 MG) PO SCH (09:00)
[2021-04-05] MEDS ORDERED: NON-FORMULARY MEDICATION 1 EA EA (Mirabegron (Myrbetriq) 50 MG) PO SCH (09:00)
[2021-04-05] MEDS: SIMvastatin 40 MG (ZOCOR) TAB PO SCH (09:18)
[2021-04-05] MEDS: PANTOPRAZOLE 40 MG (PROTONIX) TAB PO SCH (09:18)
[2021-04-05] MEDS: SENNOSIDES 8.6 MG (SENOKOT) TAB PO SCH ×2 (09:18→21:00)
[2021-04-05] MEDS: ASPIRIN E.C. 81 MG (ECOTRIN) TAB PO SCH (09:18)
[2021-04-05] MEDS: DOCUSATE SODIUM 100 MG (COLACE) CAP PO SCH ×2 (09:18→21:00)
--- NOTE | 2021-04-05 09:29 | Progress Note - Ortho ---
Progress Note Subjective Date of Exam 04/05/21 Chief Complaint Ortho POD #4 Right Hip Gamma Nail HPI/Events since last exam Has been working with therapy. Has some continued right hip pain. Medication helps. Review of Systems not obtained Allergies: Coded Allergies: No Allergy Information Available (Unverified , 03/31/21) Home Meds Reported Medications Hydrochlorothiazide (Hydrochlorothiazide) 12.5 Mg Tablet, 12.5 MG PO DAILY, TAB 04/01/21 Aspirin (Aspirin EC) 81 Mg Tablet.dr, 81 MG PO DAILY 04/01/21 Tolterodine Tartrate (Tolterodine Tartrate ER) 4 Mg Cap.er.24h, 4 MG PO HS, TAB 04/01/21 Carvedilol (Carvedilol) 12.5 Mg Tablet, 12.5 MG PO BID, TAB 04/01/21 Mirabegron (Myrbetriq) 50 Mg Tab.er.24h, 50 MG PO DAILY, TAB 04/01/21 Simvastatin (Simvastatin) 40 Mg Tablet, 40 MG PO DAILY, TAB 04/01/21 Tramadol HCl (Tramadol HCl) 50 Mg Tablet, 50-100 MG PO Q8H PRN for PAIN-MODERATE (5-7) 04/01/21 Omeprazole (Omeprazole) 40 Mg Capsule.dr, 40 MG PO DAILY, CAP 04/01/21 Levothyroxine Sodium (Synthroid) 100 Mcg Tablet, 100 MCG PO DAILY 04/01/21 Discontinued Reported Medications Solifenacin Succinate (Solifenacin Succinate) 5 Mg Tablet, 5 MG PO DAILY 04/01/21 Hydrochlorothiazide (Hydrochlorothiazide) 25 Mg Tablet, 25 MG PO DAILY 04/01/21 Doxazosin Mesylate (Doxazosin Mesylate) 2 Mg Tablet, 2 MG PO DAILY 04/01/21 Objective Exam Constitutional: [] HEENT: [] Neck: [] Cardiovascular: [] Respiratory: [] Gastrointestinal: [] Genitourinary: [] Skin: [] Back/Spine: [] Extremities: [] Neurologic: [] Psychiatric: [] Hematologic/lymphatic/immunologic: [] Vital Signs Vital Signs Date Time Temp Pulse Resp B/P (MAP) Pulse Ox O2 Delivery O2 Flow Rate FiO2 04/05/21 08:00 36.6 77 20 146/61 (89) 92 Room Air 04/05/21 04:10 36.7 82 18 135/72 (93) 93 Room Air 04/04/21 23:54 35.8 79 18 138/83 (101) 96 Room Air 04/04/21 20:00 Room Air 04/04/21 19:42 36.6 77 20 143/79 (100) 96 Room Air 04/04/21 15:59 36.0 82 18 117/71 (86) 95 Room Air 04/04/21 12:02 36.0 90 18 154/83 (106) 94 Room Air I & O 04/05/21 07:00 Intake Total 1630 ml Output Total 2300 ml Balance -670 ml Lab Results Laboratory Tests 04/05/21 08:00: White Blood Count 7.2, Red Blood Count 2.91L, Hemoglobin 7.6L, Hematocrit 25L, Mean Corpuscular Volume 85, Mean Corpuscular Hemoglobin 26, Mean Corpuscular Hemoglobin Concent 31L, Red Cell Distribution Width 18.9H, Platelet Count 437H, Mean Platelet Volume 9.3, Immature Granulocyte % (Auto) 2, Neutrophils (%) (Auto) 58, Lymphocytes (%) (Auto) 22, Monocytes (%) (Auto) 12, Eosinophils (%) (Auto) 5, Basophils (%) (Auto) 1, Neutrophils # (Auto) 4.2, Lymphocytes # (Auto) 1.6, Monocytes # (Auto) 0.9, Eosinophils # (Auto) 0.4H, Basophils # (Auto) 0.0, Immature Granulocyte # (Auto) 0.1, Sodium Level 138, Potassium Level 3.7, Chloride Level 106, Carbon Dioxide Level 22, Anion Gap 10, Blood Urea Nitrogen 4L, Creatinine 0.55L, Estimat Glomerular Filtration Rate 106, BUN/Creatinine Ratio 7, Glucose Level 120H, Calcium Level 8.2L, Corrected Calcium 9.5, Magnesium Level 1.8, Total Bilirubin 0.6, Aspartate Amino Transf (AST/SGOT) 20, Alanine Aminotransferase (ALT/SGPT) 9, Alkaline Phosphatase 86, Total Protein 5.4L, Albumin 2.4L Microbiology 04/01/21 MRSA Screen - Final, Complete MRSA not isolated Assessment and Plan Assessment s/p IM nailing of R IT Femur Fx Problem List s/p IM nailing of R IT Femur Fx Plan PT/OT DVT Prophylaxis Ok with return to swing bed at [facility] at any point from Ortho standpoint F/U with me in 1 month, monae out 2 weeks from date of surgery Final Diagonsis s/p IM nailing of R IT Femur Fx Level of the visit: Level 3 (post op global) PARMINDER CHAVEZ MD Apr 05, 2021 09:29
[2021-04-05] MEDS ORDERED: ENOX40DI8 SC (10:23)
[2021-04-05] MEDS ORDERED: SNN187T PO (10:23)
[2021-04-05] MEDS ORDERED: OXC5T PO (10:23)
--- NOTE | 2021-04-05 10:24 | Discharge Summary ---
Discharge Summary Hospital Course Problems/Dx: (1) Fracture of right hip Status: Acute Qualifiers: Qualified Codes: S72.001A - Fracture of unspecified part of neck of right femur, initial encounter for closed fracture (2) Fall from ground level Status: Acute (3) Exposure to COVID-19 virus Status: Acute (4) Status post administration of all doses of COVID-19 vaccine series Status: Chronic (5) Atelectasis Status: Acute (6) HTN (hypertension) Status: Chronic (7) Hypothyroidism Status: Chronic (8) Anemia Status: Chronic (9) Obesity Status: Chronic Hospital Course Date of Admission: Mar 31, 2021 at 18:45 Admission Diagnosis : Family Physician/Provider: No,Local Physician Date of Discharge: 04/05/21 Discharge Diagnosis: [ ] Hospital Course: [ ] Labs and Pending Lab Test: Laboratory Tests 04/05/21 08:00: White Blood Count 7.2, Red Blood Count 2.91L, Hemoglobin 7.6L, Hematocrit 25L, Mean Corpuscular Volume 85, Mean Corpuscular Hemoglobin 26, Mean Corpuscular Hemoglobin Concent 31L, Red Cell Distribution Width 18.9H, Platelet Count 437H, Mean Platelet Volume 9.3, Immature Granulocyte % (Auto) 2, Neutrophils (%) (Auto) 58, Lymphocytes (%) (Auto) 22, Monocytes (%) (Auto) 12, Eosinophils (%) (Auto) 5, Basophils (%) (Auto) 1, Neutrophils # (Auto) 4.2, Lymphocytes # (Auto) 1.6, Monocytes # (Auto) 0.9, Eosinophils # (Auto) 0.4H, Basophils # (Auto) 0.0, Immature Granulocyte # (Auto) 0.1, Sodium Level 138, Potassium Level 3.7, Chloride Level 106, Carbon Dioxide Level 22, Anion Gap 10, Blood Urea Nitrogen 4L, Creatinine 0.55L, Estimat Glomerular Filtration Rate 106, BUN/Creatinine Ratio 7, Glucose Level 120H, Calcium Level 8.2L, Corrected Calcium 9.5, Magnesium Level 1.8, Total Bilirubin 0.6, Aspartate Amino Transf (AST/SGOT) 20, Alanine Aminotransferase (ALT/SGPT) 9, Alkaline Phosphatase 86, Total Protein 5.4L, Albumin 2.4L Microbiology 04/01/21 MRSA Screen - Final, Complete MRSA not isolated Home Meds Active Senna Lax (Sennosides) 8.6 Mg Tablet 8.6 Mg PO BID 30 Days Oxyir Tablet (Oxycodone HCl) 5 Mg Tab 2.5-5 Mg PO Q4H PRN 30 Days Enoxaparin Sodium 40 Mg/0.4 Ml Syringe 40 Mg SC Q24H 30 Days Reported Hydrochlorothiazide 12.5 Mg Tablet 12.5 Mg PO DAILY Aspirin EC (Aspirin) 81 Mg Tablet.dr 81 Mg PO DAILY Tolterodine Tartrate ER (Tolterodine Tartrate) 4 Mg Cap.er.24h 4 Mg PO HS Carvedilol 12.5 Mg Tablet 12.5 Mg PO BID Myrbetriq (Mirabegron) 50 Mg Tab.er.24h 50 Mg PO DAILY Simvastatin 40 Mg Tablet 40 Mg PO DAILY Tramadol HCl 50 Mg Tablet 50-100 Mg PO Q8H PRN Omeprazole 40 Mg Capsule.dr 40 Mg PO DAILY Synthroid (Levothyroxine Sodium) 100 Mcg Tablet 100 Mcg PO DAILY Discharge Physical Examination Vital Signs Vital Signs Date Time Temp Pulse Resp B/P (MAP) Pulse Ox O2 Delivery O2 Flow Rate FiO2 04/05/21 08:00 36.6 77 20 146/61 (89) 92 Room Air 04/04/21 06:27 2.00 Allergies: Coded Allergies: No Allergy Information Available (Unverified , 03/31/21) Discharge Summary Date of Admission Mar 31, 2021 at 18:45 Date of Discharge Discharge Date: Apr 05, 2021 Admission Diagnosis Closed right intertrochanteric hip fracture Discharge Diagnosis (1) Fracture of right hip Status: Acute Qualifiers: Qualified Codes: S72.001A - Fracture of unspecified part of neck of right femur, initial encounter for closed fracture (2) Fall from ground level Status: Acute (3) Exposure to COVID-19 virus Status: Acute (4) Status post administration of all doses of COVID-19 vaccine series Status: Chronic (5) Atelectasis Status: Acute (6) HTN (hypertension) Status: Chronic (7) Hypothyroidism Status: Chronic (8) Anemia Status: Chronic (9) Obesity Status: Chronic CHRISTINA DILLARD DO Apr 05, 2021 10:24
[2021-04-05] MEDS ORDERED: COVID-19 VACC,MRNA(MODERNA)/PF 50 MCG/0.25 ML BOOSTER IM ONE (11:00)
--- NOTE | 2021-04-05 11:31 | Physical Therapy Daily Note ---
PT Daily Note-Current Subjective Patient more alert on this date. Appears to have better pain control. Mental Status Patient Orientation: Normal For Age Attachments: IV Transfers SCALE: Activities may be completed with or without assistive devices. 0-Aiywekdfpl-aetlhvw completes the activity by him/herself with no assistance from a helper. 5-Set-up or Clean-up Assistance-helper sets up or cleans up; patient completes activity. [place] assists only prior to or following the activity. 4-Supervision or Touching Assistance-helper provides verbal cues and/or touching/steadying and/or contact guard assistance as patient completes activit y. Assistance may be provided throughout the activity or intermittently. 3-Partial/Moderate Assistance-helper does LESS THAN HALF the effort. [place] lifts, holds or supports trunk or limbs, but provides less than half the effort. 2-Substantial/Maximal Assistance-helper does MORE THAN HALF the effort. [place] lifts or holds trunk or limbs and provides more than half the effort. 4-Mzywwpjtb-gsyitn does ALL the effort. Patient does none of the effort to complete the activity. Or, the assistance of 2 or more helpers is required for the patient to complete the activity. If activity was not attempted, code reason: 7-Patient Refused. 9-Not Applicable-not attempted and the patient did not perform the activity before the current illness, exacerbation or injury. 10-Not Attempted due to Environmental Limitations-(lack of equipment, weather restraints, etc.). 88-Not Attempted due to Medical Conditions or Safety Concerns. Lying to Sitting/Side of Bed(Q: 1 (x 2) Sit to Stand (QC): 1 (x 2) Chair/Tgp-zr-Hoilw Xfer(QC): 1 (x 2) unable to stand erect to FWW/severe trunk flexed posture with retropulsion requiring dependent assist of 2 to attain sitting in recliner safely Weight Bearing Right Lower Extremity: Right Weight Bearing/Tolerated Left Lower Extremity: Left Full Weight Bearing Gait Training Does the Patient Walk?: No and Walking Goal IS indicated Gait Assistive Device: FWW Exercises Supine Ex: Ankle pumps, Heel Slides (AAROM) Supine Reps: 10 Seated Therapy Exercises: Long arc quads Seated Reps: 15 (x 2 sets) Assessment Patient requires time to complete tasks. Patient continues to have difficulty weight bearing right LE. Increase activity as tolerated by patient. PT Short Term Goals Short Term Goals Time Frame: Apr 13, 2021 Roll Left & Right: 2 Sit to lyin Lying to sitting on side of be: 2 Sit to stand: 2 Chair/mhe-xb-krpmw transfer: 2 PT Medical Territory Manager Goals Medical Territory Manager Goals PT Assisted Goals Time Frame: May 08, 2021 Roll Left & Right (QC): 3 Sit to Lying (QC): 3 Lying-Sitting on Side/Bed(QC): 3 Sit to Stand (QC): 3 Chair/Kcm-uo-Yghph Xfer(QC): 3 Toilet Transfer (QC): 3 Walk 10 feet (QC): 3 Walk 50ft with 2 Turns (QC): 3 Walk 150 ft (QC): 3 PT Plan Treatment/Plan Treatment Plan: Continue Plan of Care Treatment Plan: Bed Mobility, Education, Functional Activity Icera, Functional Strength, Gait, Safety, Therapeutic Exercise, Transfers Treatment Duration: May 08, 2021 Frequency: 6 times per week (then increase to 11/wk as patient improves with pain tolerance) Estimated Hrs Per Day: .25 hour per day Patient and/or Family Agrees t: Yes Time/GCodes Time In: 1030 Time Out: 1053 Total Billed Treatment Time: 23 Total Billed Treatment 1 visit EX 8 min FA 15 min EUSEBIA XAVIER PT Apr 05, 2021 11:31
[2021-04-05 12:00] VITALS: BP 121/73
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
--- NOTE | 2021-04-05 14:05 | Occupational Ther Daily Note ---
OT Current Status-Daily Note Subjective Pt in bed, agreeable to OT tx as long as she can stay in bed. ADL-Treatment Therapy Code Descriptions/Definitions Functional [place] Measure: 0=Not Assessed/NA 4=Minimal Assistance 1=Total Assistance 5=Supervision or Setup 2=Maximal Assistance 6=Modified [place] 3=Moderate Assistance 7=Complete IndependenceSCALE: Activities may be completed with or without assistive devices. 9-Tubcwpmvba-lybcjch completes the activity by him/herself with no assistance from a helper. 5-Set-up or Clean-up Assistance-helper sets up or cleans up; patient completes activity. [place] assists only prior to or following the activity. 4-Supervision or Touching Assistance-helper provides verbal cues and/or touchin g/steadying and/or contact guard assistance as patient completes activity. Assistance may be provided throughout the activity or intermittently. 3-Partial/Moderate Assistance-helper does LESS THAN HALF the effort. [place] lifts, holds or supports trunk or limbs, but provides less than half the effort. 2-Substantial/Maximal Assistance-helper does MORE THAN HALF the effort. [place] lifts or holds trunk or limbs and provides more than half the effort. 5-Ruokhlwmj-meejuk does ALL the effort. Patient does none of the effort to complete the activity. Or, the assistance of 2 or more helpers is required for the patient to complete the activity. If activity was not attempted, code reason: 7-Patient Refused. 9-Not Applicable-not attempted and the patient did not perform the activity before the current illness, exacerbation or injury. 10-Not Attempted due to Environmental Limitations-(lack of equipment, weather restraints, etc.). 88-Not Attempted due to Medical Conditions or Safety Concerns. Eating (QC): 7 Other Treatment Pt laying in bed, refused OOB activities as she just got back to bed and was in a lot of pain. Pt did not verbalize pain rating. Pt agreeable to OT Tx with focus on ADLs. Pt able to brush her hair and wash her face with set up assistance. Pt declined further ADLs, and declined UE exercises at this time, stating she would like to rest. Post tx, pt in bed, call light in reach and all needs met. Education OT Patient Education: Correct positioning, Energy conservation, Exercise program, Modified ADL techniques, Progress toward Goal/Update tx plan, Purpose of tx/functional activities, Rehab process Teaching Recipient: Patient Teaching Methods: Discussion Response to Teaching: Verbalize Understanding OT Assisted Goals Mental Health Case Manager Goals Time Frame: Apr 16, 2021 Eating (QC): 6 Oral Hygiene (QC): 6 Toileting Hygiene (QC): 3 Shower/Bathe Self (QC): 3 Upper Body Dressing (QC): 5 Lower Body Dressing (QC): 3 On/Off Footwear (QC): 3 Additional Goals: 1-Demonstrate ADL Tasks, 2-Verbalize Understanding, 3- ImproveStrength/[place] 1=Demonstrate adherence to instructed precautions during ADL tasks. 2=Patient will verbalize/demonstrate understanding of assistive devices/modifications for ADL. 3=Patient will improve strength/tolerance for activity to enable patient to perform ADL's. OT Education/Plan Problem List/Assessment Assessment: Decreased Activ Tolerance, Decreased Safety Aware, Decreased UE Strength, Impaired Funct Balance, Impaired I ADL's, Impaired Self-Care Skills Discharge Recommendations Plan/Recommendations: Continue POC Treatment Plan/Plan of Care Patient would benefit from OT for education, treatment and training to promote independence in ADL's, mobility, safety and/or upper extremity function for ADL's. Plan of Care: ADL Retraining, Functional Mobility, UE Funct Exercise/Act Treatment Duration: Apr 16, 2021 Frequency: 3 times per week (3-5 times per week) Rehab Potential: Fair Time/GCodes Start Time: 13:45 Stop Time: 13:54 Total Time Billed (hr/min): 9 Billed Treatment Time 1, ADL ANTHONY MINA OT Apr 05, 2021 14:05
[2021-04-05 16:00] VITALS: BP 133/63
[2021-04-05] MEDS ORDERED: HYDROcodone/APAP 7.5 MG/325 MG (LORTAB, LORCET PLUS) TABLET PO PRN (16:30)
[2021-04-05] MEDS: ENOXAPARIN 40 MG/0.4 ML (LOVENOX) SYR SC SCH (18:19)
[2021-04-05 19:53] VITALS: BP 126/60
[2021-04-05] MEDS: TOLTERODINE LA 4 MG (DETROL) CAP PO SCH (21:00)
[2021-04-05] MEDS: ACETAMINOPHEN 325 MG TABLET PO PRN (22:00)
[2021-04-06] VITALS: BP 96/56
[2021-04-06 00:40] VITALS: BP 115/67
[2021-04-06 04:17] VITALS: BP 127/54
[2021-04-06 05:57] LABS: BASOPHILS # (AUTO) 0.1 10^3/uL (0.0-0.1); BASOPHILS % (AUTO) 1 % (0-10); EOSINOPHILS # (AUTO) 0.5 10^3/uL (0.0-0.3); EOSINOPHILS % (AUTO) 7 % (0-10); HEMATOCRIT 25 % (35-52); HEMOGLOBIN 7.6 g/dL (11.5-16.0); LYMPHOCYTES # (AUTO) 1.4 10^3/uL (1.0-4.0); LYMPHOCYTES % (AUTO) 19 % (12-44); MEAN CORPUSCULAR HEMOGLOBIN 26 pg (25-34); MEAN CORPUSCULAR HGB CONC 30 g/dL (32-36); MEAN CORPUSCULAR VOLUME 87 fL (80-99); MEAN PLATELET VOLUME 9.1 fL (9.0-12.2); MONOCYTES % (AUTO) 13 % (0-12); NEUTROPHILS # (AUTO) 4.5 10^3/uL (1.8-7.8); NEUTROPHILS % (AUTO) 60 % (42-75); PLATELET COUNT 482 10^3/uL (130-400); WHITE BLOOD COUNT 7.6 10^3/uL (4.3-11.0)
[2021-04-06 06:09] LABS: ALBUMIN 2.5 GM/DL (3.2-4.5)
[2021-04-06 06:10] LABS: POTASSIUM 3.7 MMOL/L (3.6-5.0)
[2021-04-06 06:11] LABS: CALCIUM 8.4 MG/DL (8.5-10.1)
[2021-04-06 06:12] LABS: TOTAL PROTEIN 5.4 GM/DL (6.4-8.2)
[2021-04-06] MEDS: KCL 20 MEQ TAB (K-DUR) PO SCH (06:13)
[2021-04-06] MEDS: POTASSIUM CL 10MEQ/50ML IVPB 50 ML IV SCH (06:13)
[2021-04-06 06:14] LABS: BILIRUBIN,TOTAL 0.7 MG/DL (0.1-1.0)
[2021-04-06 06:16] LABS: CREATININE SERUM 0.58 MG/DL (0.60-1.30)
[2021-04-06] MEDS: MAGNESIUM 1 GM/100 ML IVPB 100 ML IV SCH (06:31)
[2021-04-06] MEDS: LEVOTHYROXINE 100 MCG (LEVOTHROID) TAB PO SCH (06:52)
[2021-04-06 07:58] VITALS: BP 117/58
[2021-04-06] MEDS: SIMvastatin 40 MG (ZOCOR) TAB PO SCH (08:45)
[2021-04-06] MEDS: PANTOPRAZOLE 40 MG (PROTONIX) TAB PO SCH (08:45)
[2021-04-06] MEDS: ASPIRIN E.C. 81 MG (ECOTRIN) TAB PO SCH (08:45)
--- NOTE | 2021-04-06 09:18 | Physical Therapy Daily Note ---
PT Daily Note-Current Subjective Patient agrees to PT. Received pain medication prior to session. Pain Numeric Pain Scale: 5-Moderate Pain Location: Right Location Body Site: Hip Pain Description: Acute Mental Status Patient Orientation: Normal For Age Transfers SCALE: Activities may be completed with or without assistive devices. 7-Iwtoucwrrb-jbliqwc completes the activity by him/herself with no assistance from a helper. 5-Set-up or Clean-up Assistance-helper sets up or cleans up; patient completes activity. [place] assists only prior to or following the activity. 4-Supervision or Touching Assistance-helper provides verbal cues and/or touching/steadying and/or contact guard assistance as patient completes activity. Assistance may be provided throughout the activity or intermittently. 3-Partial/Moderate Assistance-helper does LESS THAN HALF the effort. [place] lifts, holds or supports trunk or limbs, but provides less than half the effort. 2-Substantial/Maximal Assistance-helper does MORE THAN HALF the effort. [place] lifts or holds trunk or limbs and provides more than half the effort. 1-Gcdzoxuhb-cawyre does ALL the effort. Patient does none of the effort to complete the activity. Or, the assistance of 2 or more helpers is required for the patient to complete the activity. If activity was not attempted, code reason: 7-Patient Refused. 9-Not Applicable-not attempted and the patient did not perform the activity before the current illness, exacerbation or injury. 10-Not Attempted due to Environmental Limitations-(lack of equipment, weather restraints, etc.). 88-Not Attempted due to Medical Conditions or Safety Concerns. Lying to Sitting/Side of Bed(Q: 3 Sit to Stand (QC): 2 Chair/Pue-ik-Xeocn Xfer(QC): 2 Weight Bearing Right Lower Extremity: Right Weight Bearing/Tolerated Left Lower Extremity: Left Full Weight Bearing Gait Training Does the Patient Walk?: No and Walking Goal IS indicated Gait Assistive Device: FWW difficulty with weight shifting to right to advance left LE/scooting technique performed Exercises Supine Ex: Ankle pumps, Quad Set, Heel Slides (AAROM) Supine Reps: 12 Seated Therapy Exercises: Long arc quads, Hip flexion Seated Reps: 15 Assessment Slow progress with difficulty weight shifting to right LE to advance left LE.P atient up in recliner with needs met. Plan transfer to OSH for continued care per report. PT to continue PT Short Term Goals Short Term Goals Time Frame: Apr 13, 2021 Roll Left & Right: 2 Sit to lyin Lying to sitting on side of be: 2 Sit to stand: 2 Chair/led-op-kjoeb transfer: 2 PT Chcf Goals Chcf Goals PT Chcf Goals Time Frame: May 08, 2021 Roll Left & Right (QC): 3 Sit to Lying (QC): 3 Lying-Sitting on Side/Bed(QC): 3 Sit to Stand (QC): 3 Chair/Kyt-qn-Yudzf Xfer(QC): 3 Toilet Transfer (QC): 3 Walk 10 feet (QC): 3 Walk 50ft with 2 Turns (QC): 3 Walk 150 ft (QC): 3 PT Plan Treatment/Plan Treatment Plan: Continue Plan of Care Treatment Plan: Bed Mobility, Education, Functional Activity [place], Functional Strength, Gait, Safety, Therapeutic Exercise, Transfers Treatment Duration: May 08, 2021 Frequency: 6 times per week (then increase to 11/wk as patient improves with pain tolerance) Estimated Hrs Per Day: .25 hour per day Patient and/or Family Agrees t: Yes Time/GCodes Time In: 852 Time Out: 907 Total Billed Treatment Time: 15 Total Billed Treatment 1 visit FA 15 min EUSEBIA XAVIER PT Apr 06, 2021 09:18
[2021-04-06] MEDS: SENNOSIDES 8.6 MG (SENOKOT) TAB PO SCH (10:08)
[2021-04-06] MEDS: DOCUSATE SODIUM 100 MG (COLACE) CAP PO SCH (10:08)
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
[2021-04-06] MEDS: ACETAMINOPHEN 325 MG TABLET PO PRN ×2 (10:52→15:27)
--- NOTE | 2021-04-06 10:53 | Occupational Ther Daily Note ---
OT Current Status-Daily Note Subjective Pt up in recliner, agreeable to OT tx. Pt states she is going to [facility] today. Mental Status/Objective Patient Orientation: Person, Place, Situation ADL-Treatment Therapy Code Descriptions/Definitions Functional [place] Measure: 0=Not Assessed/NA 4=Minimal Assistance 1=Total Assistance 5=Supervision or Setup 2=Maximal Assistance 6=Modified [place] 3=Moderate Assistance 7=Complete IndependenceSCALE: Activities may be completed with or without assistive devices. 1-Wbvmnfkvvp-ilvwpfn completes the activity by him/herself with no assistance from a helper. 5-Set-up or Clean-up Assistance-helper sets up or cleans up; patient completes activity. [place] assists only prior to or following the activity. 4-Supervision or Touching Assistance-helper provides verbal cues and/or touching/steadying and/or contact guard assistance as patient completes activity. Assistance may be provided throughout the activity or intermittently. 3-Partial/Moderate Assistance-helper does LESS THAN HALF the effort. [place] lifts, holds or supports trunk or limbs, but provides less than half the effort. 2-Substantial/Maximal Assistance-helper does MORE THAN HALF the effort. [place] lifts or holds trunk or limbs and provides more than half the effort. 4-Nlxsolzjq-hyqfij does ALL the effort. Patient does none of the effort to complete the activity. Or, the assistance of 2 or more helpers is required for the patient to complete the activity. If activity was not attempted, code reason: 7-Patient Refused. 9-Not Applicable-not attempted and the patient did not perform the activity before the current illness, exacerbation or injury. 10-Not Attempted due to Environmental Limitations-(lack of equipment, weather restraints, etc.). 88-Not Attempted due to Medical Conditions or Safety Concerns. Shower/Bathe Self (QC): 1 (Pt able to wash BUEs, chest, abdomen, thighs. Assistance provided lower legs/feet. Per clincial judgment, pt requires assist x2 to wash periarea and buttocks.) Upper Body Dressing (QC): 3 (Min A with hospital gown.) On/Off Footwear: 1 (total assist with gripper socks.) Other Treatment Pt seated in recliner, agreeable to OT Tx. Pt completed sponge bath in sitting, changing hospital gown and completing footwear as outlined above. Pt completed treatment seated. based on clincial judgment, pt would require assistance x2 in pin puller order to manage LE clothing and wash buttocks/periarea. Post tx, pt in recliner, call light in reach and all needs met. Education OT Patient Education: Correct positioning, Energy conservation, Modified ADL techniques, Progress toward Goal/Update tx plan, Purpose of tx/functional activities, Rehab process Teaching Recipient: Patient Teaching Methods: Discussion Response to Teaching: Verbalize Understanding OT Convertible Top Installer Goals Assisted Goals Time Frame: Apr 16, 2021 Eating (QC): 6 Oral Hygiene (QC): 6 Toileting Hygiene (QC): 3 Shower/Bathe Self (QC): 3 Upper Body Dressing (QC): 5 Lower Body Dressing (QC): 3 On/Off Footwear (QC): 3 Additional Goals: 1-Demonstrate ADL Tasks, 2-Verbalize Understanding, 3-Impro veStrength/Ciera 1=Demonstrate adherence to instructed precautions during ADL tasks. 2=Patient will verbalize/demonstrate understanding of assistive devices/modifications for ADL. 3=Patient will improve strength/tolerance for activity to enable patient to perform ADL's. OT Education/Plan Problem List/Assessment Assessment: Decreased Activ Tolerance, Decreased UE Strength, Dependent Transfers, Impaired Funct Balance, Impaired I ADL's, Impaired Self-Care Skills Discharge Recommendations Plan/Recommendations: Continue POC Treatment Plan/Plan of Care Patient would benefit from OT for education, treatment and training to promote independence in ADL's, mobility, safety and/or upper extremity function for ADL's. Plan of Care: ADL Retraining, Functional Mobility, UE Funct Exercise/Act Treatment Duration: Apr 16, 2021 Frequency: 3 times per week (3-5 times per week) Rehab Potential: Fair Time/GCodes Start Time: 10:35 Stop Time: 10:48 Total Time Billed (hr/min): 14 Billed Treatment Time 1, ADL ANTHONY MINA OT Apr 06, 2021 10:53
[2021-04-06] MEDS ORDERED: MAGNESIUM CITRATE 300 ML BTL PO ONE (11:00)
[2021-04-06] MEDS ORDERED: polyethylene glycoL POWDER 17 GM (MIRALAX) PACK PO ONE (11:00)
[2021-04-06 11:55] VITALS: BP 109/63
[2021-04-06 15:39] VITALS: BP 109/63
== END 2021-04-06 16:00 | disposition swing bed (61) | DRG 481 ==
LOC: 4TH 18:45
PROVIDERS: ADMIT Internal Medicine; ATTEND Internal Medicine
PROC: 0QS636Z Reposition Right Upper Femur with Intramedullary Internal Fixation Device, Percutaneous Approach (ICD-10-PCS; principal; 2021-04-01 15:57)
DX: S72.141A Displaced intertrochanteric fracture of right femur, initial encounter for closed fracture (principal); J98.11 Atelectasis; W19.XXXA Unspecified fall, initial encounter; I10 Essential (primary) hypertension; E03.9 Hypothyroidism, unspecified; E78.00 Pure hypercholesterolemia, unspecified; K21.9 Gastro-esophageal reflux disease without esophagitis; E66.9 Obesity, unspecified; Z68.31 Body mass index [BMI] 31.0-31.9, adult; D50.9 Iron deficiency anemia, unspecified; Z79.899 Other long term (current) drug therapy; Z79.890 Hormone replacement therapy; D64.89 Other specified anemias; Z79.82 Long term (current) use of aspirin; Z20.822 Contact with and (suspected) exposure to COVID-19; Z91.81 History of falling
CPT/HCPCS: 36415; 71045; 76000; 80048; 80053; 82728; 83540; 83550; 83735; 84132; 84145; 85014; 85018; 85025; 86850; 86900; 86901; 87081; 87636; 91301; 94760

== ENCOUNTER → 2021-04-28 | Outpatient (CLI) | payer MEDICARE ==
[~2021-04-28] MED LIST: ASPI-1238 PO; CARV12.53 PO; DOXA2TAB2 PO; ENOX40DI8 SC; HYDR12.56 PO; HYDR25TA4 PO; LEVO100T PO; MIRA50TA PO; OMEP40CA6 PO; OXC5T PO; SIMV40TA25 PO; SNN187T PO; SOLI5TAB7 PO; TOLT4CAP26 PO; TRAM50TA3 PO
--- NOTE | 2021-04-28 15:31 | Diagnostic Imaging Report ---
INDICATION: Postop followup. COMPARISON: None. FINDINGS: Two radiographic views of the right hip were obtained and show post surgical changes of interval ORIF of the proximal right femur. A short intramedullary mio is seen within the proximal right femoral shaft. This intersects a screw which traverses the femoral head and neck. A distal anchor screw is also noted. No unexpected radiopaque foreign bodies are seen. The femoroacetabular joint space is maintained. Mild osteoarthritic changes are noted. IMPRESSION: Expected post surgical changes of interval proximal right femoral ORIF. Dictated by: Dictated on workstation # [id number]
== END ==
LOC: ORTHO 13:13
PROVIDERS: ATTEND Orthopaedic Surgery
DX: Z09 Encounter for follow-up examination after completed treatment for conditions other than malignant neoplasm (principal)
CPT/HCPCS: 73502

== ENCOUNTER → 2021-05-27 | Outpatient (CLI) | payer MEDICARE ==
--- NOTE | 2021-05-27 11:08 | Diagnostic Imaging Report ---
INDICATION: Right hip fracture, status post surgery. TIME OF EXAM: 10:39 AM CORRELATION is made with prior radiograph from 04/28/2021. Intramedullary mio and compression screw transfix the right hip. Femoral acetabular alignment is normal. No acute fracture is seen. The hardware appears intact. IMPRESSION: Satisfactory postop appearance to the right hip. Dictated by: Dictated on workstation # [id number]
== END ==
LOC: ORTHO 10:22
PROVIDERS: ATTEND Orthopaedic Surgery
DX: S72.001D Fracture of unspecified part of neck of right femur, subsequent encounter for closed fracture with routine healing (principal); X58.XXXD Exposure to other specified factors, subsequent encounter
CPT/HCPCS: 73502

== ENCOUNTER 2022-04-27 02:37 | Inpatient (IN) | payer MEDICARE ==
[2022-04-27] VITALS (17 sets, daily range): BP systolic 92–159; BP diastolic 44–93
[~2022-04-27] VITALS: Ht 152.4 cm; Wt 60.4 kg
[2022-04-27] MEDS ORDERED: LIDOCAINE UROJET 2% GEL 10 ML PKG TOP ONE (02:45)
[2022-04-27] MEDS ORDERED: LACTATED RINGERS 1,000 ML IV ONE ×2 (02:45→23:00)
[2022-04-27] MEDS ORDERED: fentaNYL INJ 100 MCG/2 ML AMP IVP STA (02:45)
[2022-04-27] MEDS ORDERED: POT (02:47)
[2022-04-27] MEDS ORDERED: HYDROCHLOROTHIAZIDE (02:47)
[2022-04-27] MEDS ORDERED: LEVO88TA68 PO (02:47)
--- NOTE | 2022-04-27 02:50 | ED Fall/Injury ---
General Chief Complaint: Trauma-Non Activation Stated Complaint: LEFT HIP PAIN Source: patient (PT IS LIMITED HISTORIAN ABOUT PAST MEDICAL HISTORY. ), old records History of Present Illness Date Seen by Provider: Apr 27, 2022 Time Seen by Provider: 02:40 Initial Comments PT ARRIVES [facility] FROM HOME IN [place]. 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 KIRKPATRICK AT [facility] [place] Allergies and Home Medications Allergies Coded Allergies: No Allergy Information Available (Unverified , 03/31/21) Patient Home Medication List Home Medication List Reviewed: Yes Aspirin (Aspirin EC) 81 Mg Tablet., 81 MG PO DAILY, (Reported) Entered as Reported by: SHIKHA FREIRE on 04/01/21 0300 Carvedilol (Carvedilol) 12.5 Mg Tablet, 12.5 MG PO BID, (Reported) Entered as Reported by: SHIKHA FREIRE on 04/01/21 0256 Enoxaparin Sodium (Enoxaparin Sodium) 40 Mg/0.4 Ml Syringe, 40 MG SC Q24H Prescribed by: CHRISTINA DILLARD on 04/05/21 1023 Levothyroxine Sodium (Synthroid) 100 Mcg Tablet, 100 MCG PO DAILY, (Reported) Entered as Reported by: SHIKHA FREIRE on 04/01/21 0256 Levothyroxine Sodium (Euthyrox) 88 Mcg Tablet, (Reported) Entered as Reported by: NINO MILAN on 04/27/22 0247 Last Action: New Order Mirabegron (Myrbetriq) 50 Mg Tab.er.24h, 50 MG PO DAILY, (Reported) Entered as Reported by: SHIKHA FREIRE on 04/01/21 0256 Omeprazole (Omeprazole) 40 Mg Capsule.dr, 40 MG PO DAILY, (Reported) Entered as Reported by: SHIKHA FREIRE on 04/01/21 025 Oxycodone Hcl (Oxyir Tablet) 5 Mg Tab, 2.5-5 MG PO Q4H PRN for PAIN MODERATE- SEVERE Prescribed by: CHRISTINA DILLARD on 04/05/21 1023 Sennosides (Senna Lax) 8.6 Mg Tablet, 8.6 MG PO BID Prescribed by: CHRISTINA DILLARD on 04/05/21 1023 Simvastatin (Simvastatin) 40 Mg Tablet, 40 MG PO DAILY, (Reported) Entered as Reported by: SHIKHA FREIRE on 04/01/21 025 Tolterodine Tartrate (Tolterodine Tartrate ER) 4 Mg Cap.er.24h, 4 MG PO HS, (Reported) Entered as Reported by: SHIKHA FREIRE on 04/01/21255 Tramadol HCl (Tramadol HCl) 50 Mg Tablet, 50-100 MG PO Q8H PRN for PAIN-MODERATE (5-7), (Reported) Entered as Reported by: SHIKHA FREIRE on 04/01/21 025 [Hydrochlorothiazide] , (Reported) Entered as Reported by: NINO MILAN on 04/27/22246 Last Action: New Order [Pot] , (Reported) Entered as Reported by: NINO MILAN on 04/27/22246 Last Action: New Order Review of Systems Review of Systems Constitutional: no symptoms reported Respiratory: no symptoms reported Cardiovascular: no symptoms reported Gastrointestinal: no symptoms reported Genitourinary: no symptoms reported Musculoskeletal: see HPI Skin: no symptoms reported Psychiatric/Neurological: No Symptoms Reported Past Jxancns-Nvxsks-Gfuknm Hx Patient Social History Tobacco Use?: No Smoking Status: Never a Smoker Smokeless Tobacco Frequency: Never a User Use of E-Cig and/or Vaping Zach: Never a User Substance use?: No Alcohol Use?: No Immunizations Up To Date First/Initial COVID19 Vaccinat: 07/03/20 Second COVID19 Vaccination [place]: 07/31/20 Seasonal Allergies Seasonal Allergies: No Past Medical History Surgeries: Yes Adenoidectomy, Appendectomy, Cardiac, Gallbladder, Orthopedic, Tonsillectomy, Valve Replacement Respiratory: No Currently Using CPAP: No Currently Using BIPAP: No Cardiac: Yes (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 PAST SURGICAL HISTORY: -RIGHT HIP FRACTURE / ORIF 03/[address] CHAVEZ -BILATERAL KNEE ARTHROPLASTIES -TONSILLECTOMY/ADENOIDECTOMY -CHOLECYSTECTOMY -APPENDECTOMY -TISSUE ( PIG VALVE) AORTIC VALVE REPLACEMENT 2005. Physical Exam Vital Signs Vital Signs - First Documented 04/27/22 02:40 Temp 35.9 Pulse 83 Resp 14 B/P (MAP) 199/88 (125) Pulse Ox 100 O2 Delivery Nasal Cannula O2 Flow Rate 3.00 Capillary Refill : Height, Weight, BMI Height: '" Weight: lbs. oz. kg; 31.47 BMI Method: General Appearance: WD/WN, no apparent distress HEENT: PERRL/EOMI Neck: non-tender, full range of motion, supple, normal inspection Cardiovascular: regular rate, rhythm, no edema, no JVD, systolic murmur (3-4/6 ) Respiratory: chest non-tender, normal breath sounds, no respiratory distress, no accessory muscle use Peripheral Pulses: 2+ Dorsalis Pedis (R), 2+ Left Dors-Pedis (L) Gastrointestinal: non tender, soft Back: no CVA tenderness, no vertebral tenderness Extremities: no pedal edema, normal capillary refill, other (LEFT LEG WITH SHORTENING AND EXTERNAL ROTATION. VERY LIMITED ROM OF LEFT HIP. TENDERNESS TO LEFT HIP. DISTAL MOTOR/SENSORY/VASCULAR INTACT. ) Neurologic/Psychiatric: city carrier assistant II-XII nml as tested, no motor/sensory deficits, alert, normal mood/affect, oriented x 3 (BUT SOME LIMITED MEMORY) Skin: normal color, warm/dry [place] Coma Score Best Eye Response: (4) Open Spontaneously Best Verbal Response: (5) Oriented Best Motor Response: (6) Obeys Commands [place] Total: 15 Progress/Results/Core Measures Results/Orders Lab Results Laboratory Tests Test 04/27/22 03:07 04/27/22 03:20 Range/Units White Blood Count 10.8 4.3-11.0 10^3/uL Red Blood Count 5.18 H 3.80-5.11 10^6/uL Hemoglobin 15.1 11.5-16.0 g/dL Hematocrit 47 35-52 % Mean Corpuscular Volume 90 80-99 fL Mean Corpuscular Hemoglobin 29 25-34 pg Mean Corpuscular Hemoglobin Concent 32 32-36 g/dL Red Cell Distribution Width 12.2 10.0-14.5 % Platelet Count 214 130-400 10^3/uL Mean Platelet Volume 10.0 9.0-12.2 fL Immature Granulocyte % (Auto) 1 % Neutrophils (%) (Auto) 80 H 42-75 % Lymphocytes (%) (Auto) 13 12-44 % Monocytes (%) (Auto) 6 0-12 % Eosinophils (%) (Auto) 1 0-10 % Basophils (%) (Auto) 0 0-10 % Neutrophils # (Auto) 8.6 H 1.8-7.8 10^3/uL Lymphocytes # (Auto) 1.4 1.0-4.0 10^3/uL Monocytes # (Auto) 0.6 0.0-1.0 10^3/uL Eosinophils # (Auto) 0.1 0.0-0.3 10^3/uL Basophils # (Auto) 0.0 0.0-0.1 10^3/uL Immature Granulocyte # (Auto) 0.1 0.0-0.1 10^3/uL Prothrombin Time 14.9 H 12.2-14.7 SEC INR Comment 1.1 0.8-1.4 Activated Partial Thromboplast Time 31 24-35 SEC Sodium Level 139 135-145 MMOL/L Potassium Level 3.0 L 3.6-5.0 MMOL/L Chloride Level 99 98-107 MMOL/L Carbon Dioxide Level 30 21-32 MMOL/L Anion Gap 10 5-14 MMOL/L Blood Urea Nitrogen 7 7-18 MG/DL Creatinine 0.77 0.60-1.30 MG/DL Estimat Glomerular Filtration Rate 76 BUN/Creatinine Ratio 9 Glucose Level 117 H 70-105 MG/DL Calcium Level 9.4 8.5-10.1 MG/DL Corrected Calcium 9.6 8.5-10.1 MG/DL Total Bilirubin 0.8 0.1-1.0 MG/DL Aspartate Amino Transf (AST/SGOT) 24 5-34 U/L Alanine Aminotransferase (ALT/SGPT) 23 0-55 U/L Alkaline Phosphatase 75 40-136 U/L Total Protein 7.5 6.4-8.2 GM/DL Albumin 3.7 3.2-4.5 GM/DL Urine Color YELLOW Urine Clarity CLEAR Urine pH 6.0 5-9 Urine Specific [place] 1.020 1.016-1.022 Urine Protein NEGATIVE NEGATIVE Urine Glucose (UA) NEGATIVE NEGATIVE Urine Ketones NEGATIVE NEGATIVE Urine Nitrite NEGATIVE NEGATIVE Urine Bilirubin NEGATIVE NEGATIVE Urine Urobilinogen 0.2 < = 1.0 MG/DL Urine Leukocyte Esterase NEGATIVE NEGATIVE Urine RBC (Auto) TRACE-I H NEGATIVE Urine RBC NONE /HPF Urine WBC NONE /HPF Urine Crystals NONE /LPF Urine Bacteria NEGATIVE /HPF Urine Casts NONE /LPF Urine Mucus NEGATIVE /LPF Urine Culture Indicated NO My Orders Orders - DARIN LALA DO Ed Iv/Invasive Line Start (04/27/22 02:45) Catheter(Urinary) Insert & Ass 03,15 (04/27/22 02:45) O2 (04/27/22 02:45) Monitor-Rhythm Ecg Trace Only (04/27/22 02:45) Cbc With Automated Diff (04/27/22 02:45) Comprehensive Metabolic Panel (04/27/22 02:45) Protime With Inr (04/27/22 02:45) Partial Thromboplastin Time (04/27/22 02:45) Ua Culture If Indicated (04/27/22 02:45) Pelvis With Left Hip 2-3 Views (04/27/22 02:45) Ed Iv/Invasive Line Start (04/27/22 02:45) Lactated Ringers (Lr 1000 Ml Iv Solution (04/27/22 02:45) Fentanyl Inj (Sublimaze Injection) (04/27/22 02:45) Lidocaine 2% (Urojet) (Xylocaine Urojet) (04/27/22 02:45) Chest 1 View, Ap/Pa Only (04/27/22 ) Medications Given in ED Current Medications Medications Dose Ordered Sig/Roya Route Start Time Stop Time Status Last Admin Dose Admin Lactated Ringer's 1,000 ml @ 0 mls/hr Q0M ONCE IV 04/27/22 02:45 04/27/22 02:47 DC 04/27/22 03:20 0 MLS/HR Lidocaine HCl 10 ml ONCE ONCE TOP 04/27/22 02:45 04/27/22 02:47 DC 04/27/22 03:20 10 ML Vital Signs/I&O 04/27/22 04/27/22 02:40 02:40 Temp 35.9 Pulse 83 Resp 14 B/P (MAP) 199/88 (125) Pulse Ox 100 100 O2 Delivery Nasal Cannula Nasal Cannula O2 Flow Rate 3.00 3.00 Progress Progress Note : Progress Note GIVEN FENTANYL FOR PAIN WITH ONLY MILD IMPROVEMENT IN PAIN, MORPHINE THEN ORDERED IMPROVED PAIN CONTROL NO DETERIORATION IN PT'S CONDITION DURING ER STAY REVIEWED TEST RESULTS, PLAN FOR SURGERY AND ANTICIPATED COURSE DISCUSSED WITH PT. Diagnostic Imaging Comments XRAYS PELVIS AND LEFT HIP--PENDING RADIOLOGIST REVIEW -RIGHT HIP HARDWARE INTACT -LEFT HIP FRACTURE AT FEMORAL NECK. Reviewed: Reviewed by Me Departure Communication (Admissions) Family Conversation 0400--SPOKE WITH PT'S DAUGHTER, JAZLYN, AT PT'S REQUEST. UPDATED HER ON PT'S CONDITION AND SHE GAVE ADDITIONAL PAST MEDICAL HISTORY. SHE WAS AT PT'S HOUSE [facility]--PT CALLED HER AFTER SHE FELL-- AND WAS AWARE SHE WAS COMING HERE. 034--SPOKE WITH DR. UNDERWOOD, ORTHOPEDIC SURGEON SUPERVISOR CIGAR PROCESSING. HE ADVISES TO ADMIT TO HOSPITALIST, AND HE WILL SEE PT ON CONSULT, WITH PLANS TO TAKE TO OR LATER THIS MORNING. WILL CONSULT CARDIOLOGY DUE TO HISTORY OF VALVULAR HEART DISEASE 035--MULTIPLE ATTEMPTS TO CONTACT DR. LOPEZ, HOSPITALIST. NO ANSWER AND UNABLE TO LEAVE MESSAGE. HOME PHONE NUMBER IS NO LONGER IN SERVICE. SPOKE WITH REPORTS ANALYST. SHE WILL ATTEMPT TO CONTACT HEAD OF MEDICAL STAFF, TO EXPEDITE ADMIT. UNSUCCESSFUL. 436--ATTEMPTING TO CONTACT DR. LOPEZ AGAIN. NO ANSWER ON CELL AND UNABLE TO LEAVE MESSAGE. 437--ATTEMPTED TO CONTACT DR. LOPEZ AT AN ALTERNATIVE HOME PHONE NUMBER, NO ANSWER AND NO MAILBOX. HAVE DISCUSSED WITH REPORTS ANALYST AND SHE WILL CONTINUE TO ATTEMPT TO CONTACT HEAD OF MEDICAL STAFF. SHE WILL ALSO SEND A TEXT TO DR. RITTER, THE ONCOMING HOSPITALIST LATER THIS MORNING. 0547--ATTEMPTED TO CONTACT DR. LOPEZ ON CELL AND ALTERNATE NUMBER, AND NO ANSWER AND UNABLE TO LEAVE MESSAGE. 0549--CALLED DR. RITTER, MESSAGE LEFT [phone]--DR. RITTER CALLED BACK, SHE ACCEPTS PT FOR ADMIT. Impression Primary Impression: Fall from bed, initial encounter Additional Impressions: Closed left hip fracture Valvular heart disease Disposition: ADMITTED INPATIENT Condition: Stable Admissions Decision to Admit Reason: Admit from ER (Trauma) Decision to Admit/Date: Apr 27, 2022 Time/Decision to Admit Time: 03:50 Departure-Patient Inst. Referrals: NO,LOCAL PHYSICIAN (PCP/Family) Primary Care Physician DARIN LALA DO Apr 27, 2022 02:50
[2022-04-27 03:19] LABS: BASOPHILS % (AUTO) 0 % (0-10); EOSINOPHILS # (AUTO) 0.1 10^3/uL (0.0-0.3); EOSINOPHILS % (AUTO) 1 % (0-10); HEMATOCRIT 47 % (35-52); HEMOGLOBIN 15.1 g/dL (11.5-16.0); LYMPHOCYTES # (AUTO) 1.4 10^3/uL (1.0-4.0); LYMPHOCYTES % (AUTO) 13 % (12-44); MEAN CORPUSCULAR HEMOGLOBIN 29 pg (25-34); MEAN CORPUSCULAR HGB CONC 32 g/dL (32-36); MEAN CORPUSCULAR VOLUME 90 fL (80-99); MONOCYTES # (AUTO) 0.6 10^3/uL (0.0-1.0); MONOCYTES % (AUTO) 6 % (0-12); NEUTROPHILS # (AUTO) 8.6 10^3/uL (1.8-7.8); NEUTROPHILS % (AUTO) 80 % (42-75); PLATELET COUNT 214 10^3/uL (130-400); WHITE BLOOD COUNT 10.8 10^3/uL (4.3-11.0)
[2022-04-27 03:24] LABS: BILIRUBIN,URINE NEGATIVE (NEGATIVE); CLARITY,URINE CLEAR; COLOR,URINE YELLOW; GLUCOSE, URINE (UA) NEGATIVE (NEGATIVE); KETONES,URINE NEGATIVE (NEGATIVE); LEUKOCYTE ESTERASE ,URINE NEGATIVE (NEGATIVE); NITRITE,URINE NEGATIVE (NEGATIVE); PROTEIN,URINE NEGATIVE (NEGATIVE)
[2022-04-27 03:24] LABS: INR 1.1 (0.8-1.4); PROTHROMBIN TIME PATIENT 14.9 SEC (12.2-14.7)
[2022-04-27 03:34] LABS: ALBUMIN 3.7 GM/DL (3.2-4.5); BILIRUBIN,TOTAL 0.8 MG/DL (0.1-1.0); CALCIUM 9.4 MG/DL (8.5-10.1); CREATININE SERUM 0.77 MG/DL (0.60-1.30); TOTAL PROTEIN 7.5 GM/DL (6.4-8.2)
[2022-04-27] MEDS ORDERED: morphine INJ 4 MG/ML 1 ML (VIAL/SYRINGE) IVP ONE (04:15)
[2022-04-27] MEDS ORDERED: morphine INJ 10 MG/ML 1ML (SYR OR VIAL) IVP STA ×2 (04:15→05:40)
[2022-04-27 04:16] LABS: BACTERIA,URINE NEGATIVE /HPF
[2022-04-27] MEDS ORDERED: D5 1/2 NS 1000 ML IV SOLUTION 0 ML IV ONE (06:06)
[2022-04-27] MEDS ORDERED: D5 1/2 NS W/KCL 20 MEQ/L 1,000 ML IV ONE (06:08)
[2022-04-27] MEDS ORDERED: ONDANSETRON 4 MG/2 ML (SDV) Z0FRAN IV PRN (06:15)
[2022-04-27] MEDS ORDERED: morphine INJ 4 MG/ML 1 ML (VIAL/SYRINGE) IV PRN (06:15)
[2022-04-27] MEDS: D5 1/2 NS W/KCL 20 MEQ/L 1,000 ML IV SCH ×3 (06:51→19:18)
--- NOTE | 2022-04-27 06:51 | Diagnostic Imaging Report ---
EXAMINATION: Chest radiograph, portable AP view. DATE: 04/27/2022 3:47 AM INDICATION: 87-year-old female, fall. Chest pain. COMPARISON: March 31, 2021. FINDINGS: There are median sternotomy wires. There is valvular hardware. Heart size and mediastinal contours are grossly unchanged. Lung volumes are low. There is no identified pneumothorax. There is mild blunting the left lateral costophrenic angle which is essentially unchanged. There are bilateral interstitial and/or alveolar opacities. There are right upper quadrant surgical clips. The bones do appear to be potentially demineralized. IMPRESSION: 1. Bilateral interstitial and/or alveolar opacities. Differential diagnostic considerations would include pulmonary interstitial edema, atypical infection, and/or pneumonitis. 2. Lung volumes are low. Dictated by: Dictated on workstation # [id number]
--- NOTE | 2022-04-27 06:52 | Diagnostic Imaging Report ---
EXAMINATION: Pelvis, single view. Left hip, 2 additional views. COMPARISON: None. HISTORY: 87-year-old female, fall. Left hip pain. FINDINGS: There is an incompletely imaged intramedullary mio in the right proximal femur within a fixation screw. There is an acute displaced left femoral neck fracture. There is superior displacement of the distal fracture fragment by approximately 1.8 cm. The pubic symphysis and sacroiliac joints are normally aligned. There does appear to be transitional lumbosacral anatomy. There are prominent degenerative changes of the lower lumbar spine at L5-S1. There are surgical clips overlying the left side of the pelvis. There is moderate osteoarthritis of the right hip. There is no pronounced arthritis of the left hip. IMPRESSION: 1. Acute displaced left femoral neck fracture. Dictated by: Dictated on workstation # [id number]
--- NOTE | 2022-04-27 07:11 | Progress Note-Pre Operative ---
Pre-Operative Progress Note Date of Available H&P: Apr 27, 2022 Date H&P Reviewed: Apr 27, 2022 Time H&P Reviewed: 07:10 Changes from last HP none Pre-Operative Diagnosis: closed, displaced left femoral neck fracture MARIKA UNDERWOOD MD Apr 27, 2022 07:10
--- NOTE | 2022-04-27 07:11 | Progress Note-Post Operative ---
Post-Operative Progess Note Surgeon (s)/Mobile Lab Technician (s) Surgeon MARIKA UNDERWOOD MD Mobile Lab Technician: Prosper Mcclelland Pre-Operative Diagnosis closed, displaced femoral neck fracture Post-Operative Diagnosis closed, displaced femoral neck fracture Procedure & Operative Findings Date of Procedure 04/27/22 Procedure Performed/Findings left hip bipolar replacement Anesthesia Type GETA Estimated Blood Loss Estimated blood loss (mL): 100 ml Specimens/Packing Specimens Removed none Packing: none MARIKA UNDERWOOD MD Apr 27, 2022 07:11
[2022-04-27] MEDS ORDERED: CATHETER FLUSH 10 ML SYR IVP PRN (07:15)
--- NOTE | 2022-04-27 07:46 | CONSULTATION REPORT ---
DATE OF SERVICE: 04/27/2022 INPATIENT CONSULTATION REASON FOR CONSULTATION: Closed displaced left femoral neck fracture. HISTORY OF PRESENT ILLNESS: The patient is an -[id number]-[id number] female, who fell at home while getting up to go to the bathroom. She landed on her left hip. She presented from [place], [place]. She reports no antecedent pain. She was found to have a closed displaced left femoral neck fracture for which I was consulted. PAST MEDICAL HISTORY: Significant for coronary artery disease, valve replacement, hypertension, hyperlipidemia and hypothyroidism. PRIMARY CARE PROVIDER: Outside physician. MEDICATIONS: Listed. PHYSICAL EXAMINATION: The patient's left lower extremity is slightly shortened. She has symmetric pulses intact dorsiflexion and plantarflexion of the toes. No skin lesions noted. She has pain with internal and external rotation of the left hip. IMPRESSION: Closed displaced left femoral neck fracture. PLAN: Left hip bipolar replacement. I discussed risks, benefits, options, ramifications and recovery with the patient. She understands and wishes to proceed. Job ID: [id number] DocumentID: [id number] Dictated Date: 04/27/2022 07:14:12 Product Planner Date: 04/27/2022 07:45:00 Dictated By: MARIKA UNDERWOOD MD
--- NOTE | 2022-04-27 08:35 | Consultation-Cardiology ---
HPI-Cardiology Cardiology Consultation: Date of Consultation 04/27/22 Time Seen by a Provider: 08:15 Date of Admission 04-27-22 Attending Physician Stephanie,Local Physician Admitting Physician Admitting Physician: Thom Corey MD Attending Physician: Thom Corey MD Consulting Physician Tata Devine MD HPI: Chief Complaint: Pre-op eval for cardiac clearance Ms. Quinones is an 87 yr old female admitted to [facility] from the ED. She reports she got up last night and fell. She denies any syncope. She is lethargic and drifts to sleep easily. She awakens easily, but is only able to provide a very limited history. She denies any c/o CP, SOB or palpitations. She does state she sees Dr. Johnson. She reports she had heart surgery at [place] stating she thinks it was a valve, but is unable to provide any other information. She states she does not take any blood thinners, only a baby ASA. Review of Systems-Cardiology Review of Systems Other comments ROS to the extent it could be obtained is as per [facility] JHF-Cmtrlb-Nnoiws Hx Patient Social History Smoking Status: Never a Smoker Have you traveled recently?: No Alcohol Use?: No Pt feels they are or have been: No Immunizations Up To Date Date of Influenza Vaccine: Feb 12, 2021 Past Medical History PMH As described under Assessment. Family Medical History Family Medical History: Unabe to provide any history Allergies and Home Medications Allergies Coded Allergies: No Allergy Information Available (Unverified , 03/31/21) Patient Home Medication List Aspirin (Aspirin EC) 81 Mg Tablet.dr 81 MG PO DAILY, (Reported) Entered as Reported by: SHIKHA FREIRE on 04/01/21 0300 Carvedilol (Carvedilol) 12.5 Mg Tablet, 12.5 MG PO BID, (Reported) Entered as Reported by: SHIKHA FREIRE on 04/01/21 0256 Enoxaparin Sodium (Enoxaparin Sodium) 40 Mg/0.4 Ml Syringe, 40 MG SC Q24H Prescribed by: CHRISTINA DILLARD on 04/05/21 1023 Levothyroxine Sodium (Synthroid) 100 Mcg Tablet, 100 MCG PO DAILY, (Reported) Entered as Reported by: SHIKHA FREIRE on 04/01/21 0256 Levothyroxine Sodium (Euthyrox) 88 Mcg Tablet, (Reported) Entered as Reported by: NINO MILAN on 04/27/22246 Last Action: New Order Mirabegron (Myrbetriq) 50 Mg Tab.er.24h, 50 MG PO DAILY, (Reported) Entered as Reported by: SHIKHA FREIRE on 04/01/21255 Omeprazole (Omeprazole) 40 Mg Capsule.dr, 40 MG PO DAILY, (Reported) Entered as Reported by: SHIKHA FREIRE on 04/01/21255 Oxycodone Hcl (Oxyir Tablet) 5 Mg Tab, 2.5-5 MG PO Q4H PRN for PAIN MODERATE- SEVERE Prescribed by: CHRISTINA DILLARD on 04/05/21 102 Sennosides (Senna Lax) 8.6 Mg Tablet, 8.6 MG PO BID Prescribed by: CHRISTINA DILLARD on 04/05/21 102 Simvastatin (Simvastatin) 40 Mg Tablet, 40 MG PO DAILY, (Reported) Entered as Reported by: SHIKHA FREIRE on 04/01/21255 Tolterodine Tartrate (Tolterodine Tartrate ER) 4 Mg Cap.er.24h, 4 MG PO HS, (Reported) Entered as Reported by: SHIKHA FREIRE on 04/01/21255 Tramadol HCl (Tramadol HCl) 50 Mg Tablet, 50-100 MG PO Q8H PRN for PAIN-MODERATE (5-7), (Reported) Entered as Reported by: SHIKHA FREIRE on 04/01/21 025 [Hydrochlorothiazide] , (Reported) Entered as Reported by: NINO MILAN on 04/27/22246 Last Action: New Order [Pot] , (Reported) Entered as Reported by: NINO MILAN on 04/27/22246 Last Action: New Order Physical Exam-Cardiology Physical Exam Vital Signs/I&O 04/28/22 04/29/22 04/29/22 04/29/22 20:57 00:15 01:00 04:00 Temp 36.5 36.2 Pulse 76 80 87 Resp 18 16 B/P (MAP) 108/53 (71) 103/64 (77) Pulse Ox 99 97 O2 Delivery Nasal Cannula Nasal Cannula Nasal Cannula O2 Flow Rate 2.50 3.00 3.00 12/16/22 12/16/22 07:00 08:27 Temp 36.6 Pulse 87 92 Resp 19 B/P (MAP) 93/59 (70) Pulse Ox 93 O2 Delivery Room Air 04/29/22 00:00 Intake Total 425 ml Output Total 525 ml Balance -100 ml Capillary Refill : Constitutional: well-developed, well-nourished, other (Oriented x 3, lethargic) HEENT: PERRL, hearing is well preserved Neck: No carotid bruit; carotid pulses are 2 + bilaterally Respiratory: No accessory muscle use, No respiratory distress; chest expansion is symmetric, chest is bilaterally symmetric, lungs clear to auscultation Cardiovascular: regular rate-rhythm; No JVD; S1 and S2, systolic murmur (3/6) Gastrointestinal: No tender; soft, audible bowel sounds Extremities: no lower extremity edema bilateral Neurologic/Psychiatric: other (moves all extremities; did not attempt movement of left leg d/t fracture) Skin: No rash on exposed areas, No ulcerations on exposed areas Data Review Labs Laboratory Tests 04/29/22 05:35: Hemoglobin 11.1L, Hematocrit 35 Radiology NAME: JUSTIN QUINONES I [facility] REC#: [id number] PT STATUS: ADM IN : 1935 PHYSICIAN: DARIN LALA DO ADMIT DATE: 04/27/22 Signed Date of Exam:04/27/22 CHEST 1 VIEW, AP/PA ONLY EXAMINATION: Chest radiograph, portable AP view. DATE: 04/27/2022 3:47 AM INDICATION: 87-year-old female, fall. Chest pain. COMPARISON: March 31, 2021. FINDINGS: There are median sternotomy wires. There is valvular hardware. Heart size and mediastinal contours are grossly unchanged. Lung volumes are low. There is no identified pneumothorax. There is mild blunting the left lateral costophrenic angle which is essentially unchanged. There are bilateral interstitial and/or alveolar opacities. There are right upper quadrant surgical clips. The bones do appear to be potentially demineralized. IMPRESSION: 1. Bilateral interstitial and/or alveolar opacities. Differential diagnostic considerations would include pulmonary interstitial edema, atypical infection, and/or pneumonitis. 2. Lung volumes are low. Dictated by: Dictated on workstation # [id number] Dict: 04/27/2226 Trans: 04/27/22806 [facility] [id number] Interpreted by: AMADOU BAKER MD Electronically signed by: AMADOU BAKER MD 04/27/22806 A/P-Cardiology Assessment/Admission Diagnosis S/P non-syncopal fall resulting in left hip fracture - management per Dr. Marcelo H/O heart valve surgery at [facility] - details are unknown by pt - 3/6 cardiac murmur on physical exam of aortic stenosis/sclerosis without s/s of angina or heart failure HTN Hypothyroidism AMS Discussion and Recomendations S/P non-syncopal fall with left hip fracture for which she is waiting on surgery by Dr. Marcelo Reports h/o valve replacement, but details are unknown - request records from [place] - Echocardiogram - EKG HTN - continue home dose of Coreg Replace potassium Monitor lab Advise DVT prophylaxis Cardiac murmur of aortic stenosis/sclerosis without s/s of angina or heart failure. Risk for non-cardiac surgery is intermediate. Avoid hypotension. Further recs will be based on the above and hospital course We would like to thank Dr. Lujan for this consult GENESIS HYMAN Apr 27, 2022 08:35
--- NOTE | 2022-04-27 08:53 | History & Physical ---
ADENIKE WILLSON 04/27/22 0853: History of Present Illness History of Present Illness Reason for visit/HPI Ms. Quinones is an 87 year old female with a PMHx of valvular heart disease, HTN, HLD, hypothyroidism, GERD, and previous R hip fracture who presented to the [facility] ED after sustaining a fall to the left hip. Patient states she fell around 12:30 this morning when getting out of bed to use the restroom. Patient states she fell on her left hip. Patient denies hitting her head or LOC. Patient states she takes ASA 81mg PO daily. L hip radiograph indicates an acute displaced L femoral neck fracture. Orthopedics has been consulted and plans to proceed with surgical management. Patient has been admitted to Hospitalist service for medical management perioperatively. Patient's disposition this morning is lethargic. Patient was drifting in and out of sleep during encounter. Patient states she is experiencing 10/10 left hip pain. Patient denies pain elsewhere. Patient denies feeling tired despite disposition. Clinical encounter was limited. Date of Admission Apr 27, 2022 at 03:50 Date Seen by a Provider: Apr 27, 2022 Time Seen by a Provider: 08:00 I consulted on this patient on 04/27/22 08:46 Attending Physician No,Local Physician Admitting Physician Admitting Physician: Thom Corey MD Attending Physician: Thom Corey MD Consult Allergies and Home Medications Allergies Coded Allergies: No Allergy Information Available (Unverified , 03/31/21) Patient Home Medication List Home Medication List Reviewed: Yes Aspirin (Aspirin EC) 81 Mg Tablet.dr, 81 MG PO DAILY, (Reported) Entered as Reported by: SHIKHA FREIRE on 04/01/21 0300 Last Action: Reviewed Carvedilol (Carvedilol) 12.5 Mg Tablet, 12.5 MG PO BID, (Reported) Entered as Reported by: SHIKHA FREIRE on 04/01/21 0256 Last Action: Reviewed Hydrochlorothiazide (Hydrochlorothiazide) 12.5 Mg Tablet, 12.5 MG PO DAILY, (Reported) Entered as Reported by: TRISTON BONDS on 04/29/22 1400 Last Action: Reviewed Levothyroxine Sodium (Euthyrox) 88 Mcg Tablet, 88 MCG PO DAILY, (Reported) Entered as Reported by: NINO MILAN on 04/27/22 0247 Last Action: Reviewed Mirabegron (Myrbetriq) 50 Mg Tab.er.24h, 50 MG PO DAILY, (Reported) Entered as Reported by: SHIKHA FREIRE on 04/01/21255 Last Action: Reviewed Omeprazole (Omeprazole) 40 Mg Capsule.dr, 40 MG PO DAILY, (Reported) Entered as Reported by: SHIKHA FREIRE on 04/01/21255 Last Action: Reviewed Potassium Chloride (Klor-Con 10) 10 Meq Tablet.er, 10 MEQ PO BID, (Reported) Entered as Reported by: TRISTON BONDS on 04/29/22 1400 Last Action: Reviewed Simvastatin (Simvastatin) 40 Mg Tablet, 40 MG PO DAILY, (Reported) Entered as Reported by: SHIKHA FREIRE on 04/01/21255 Last Action: Reviewed Tolterodine Tartrate (Tolterodine Tartrate ER) 4 Mg Cap.er.24h, 4 MG PO HS, (Rep orted) Entered as Reported by: SHIKHA FREIRE on 04/01/21255 Last Action: Reviewed Tramadol HCl (Tramadol HCl) 50 Mg Tablet, 50-100 MG PO Q8H PRN for PAIN-MODERATE (5-7), (Reported) Entered as Reported by: SHIKHA FREIRE on 04/01/21255 Last Action: Reviewed Discontinued Medications Enoxaparin Sodium (Enoxaparin Sodium) 40 Mg/0.4 Ml Syringe, 40 MG SC Q24H Discontinued Reason: No Longer Taking Prescribed by: CHRISTINA DILLARD on 04/05/21 102 Last Action: Discontinued Levothyroxine Sodium (Synthroid) 100 Mcg Tablet, 100 MCG PO DAILY, (Reported) Discontinued Reason: No Longer Taking Entered as Reported by: SHIKHA FREIRE on 04/01/21255 Last Action: Discontinued Oxycodone Hcl (Oxyir Tablet) 5 Mg Tab, 2.5-5 MG PO Q4H PRN for PAIN MODERATE- SEVERE Discontinued Reason: No Longer Taking Prescribed by: CHRITSINA DILLARD on 04/05/21 1023 Last Action: Discontinued Sennosides (Senna Lax) 8.6 Mg Tablet, 8.6 MG PO BID Discontinued Reason: No Longer Taking Prescribed by: CHRISTINA DILLARD on 04/05/21 1023 Last Action: Discontinued [Hydrochlorothiazide] , (Reported) Discontinued Reason: Duplicate Order Entered as Reported by: NINO MILAN on 04/27/22246 Last Action: Discontinued [Pot] , (Reported) Discontinued Reason: Duplicate Order Entered as Reported by: NINO MILAN on 04/27/22246 Last Action: Discontinued Past [place]-Qmrfva-Wbowve Hx Patient Social History Tobacco Use?: No Smoking Status: Never a Smoker Smokeless Tobacco Frequency: Never a User Use of E-Cig and/or Vaping dev: No Use of E-Cig and/or Vaping Zach: Never a User Substance use?: No Alcohol Use?: No Pt feels they are or have been: No Immunizations Up To Date Date of Influenza Vaccine: Feb 12, 2021 First/Initial COVID19 Vaccinat: 07/03/20 Second COVID19 Vaccination [place]: 07/31/20 Tetanus Booster (TDap): Unknown Hepatitis A: No Hepatitis B: No Seasonal Allergies Seasonal Allergies: No Current Status status: No Advance Directives: Yes Communicates: Verbally Primary Language: Maldivian Preferred Spoken Language: Maldivian Is interpretation needed?: No Sensory deficits: Hearing impairment Implanted or Applied Medical D: Orthopedic hardware Past Medical History Surgeries: Adenoidectomy, Appendectomy, Cardiac, Gallbladder, Orthopedic, Tonsillectomy, Valve Replacement Currently Using CPAP: No Currently Using BIPAP: No High Cholesterol, Hypertension, Valvular Heart Disease 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 PAST SURGICAL HISTORY: -RIGHT HIP FRACTURE / ORIF 03/[address] CHAVEZ -BILATERAL KNEE ARTHROPLASTIES -TONSILLECTOMY/ADENOIDECTOMY -CHOLECYSTECTOMY -APPENDECTOMY -TISSUE ( PIG VALVE) AORTIC VALVE REPLACEMENT 2005. Review of Systems Constitutional: no symptoms reported; No chills, No fever EENTM: no symptoms reported Respiratory: no symptoms reported; No short of breath Cardiovascular: no symptoms reported; No chest pain Gastrointestinal: No abdominal pain Musculoskeletal: other (left hip pain) Skin: no symptoms reported Psychiatric/Neurological: No Symptoms Reported; Denies Headache All Other Systems Reviewed Negative Unless Noted: Yes Physical Exam Vital Signs Vital Signs - First Documented 04/27/22 02:40 Temp 35.9 Pulse 83 Resp 14 B/P (MAP) 199/88 (125) Pulse Ox 100 O2 Delivery Nasal Cannula O2 Flow Rate 3.00 Capillary Refill : Height, Weight, BMI Height: '" Weight: lbs. oz. kg; 26.00 BMI Method: General Appearance: No Apparent Distress, Other (lethargic) Respiratory: Lungs Clear, Normal Breath Sounds, No Accessory Muscle Use, No Respiratory Distress Cardiovascular: Regular Rate, Rhythm; No No Murmur; Other (systolic 3/6 murmur ) Gastrointestinal: Normal Bowel Sounds, Soft Neurologic/Psychiatric: No Alert, No Oriented x3; Other (lethargic) Skin: Normal Color, Warm/Dry Assessment/Plan Assessment and Plan 1. Left femoral neck fracture -Surgical management per Orthopedics -Pain control PRN morphine 4mg Q2H IV -DVT prophylaxis with Lovenox and SCDs -Incentive spirometry post-operatively -PT/OT -Regular diet post-operatively as tolerated -Zofran 4mg Q4H PRN for nausea perioperatively -Stool softener regimen with docusate 100mg PO BID post-operatively 2. Hypokalemia with K of 3.0 -Repeat CMP in AM -Supplement with KCl 40 meq IV or PO postoperatively 3. HTN -Resume home medications, Carvedilol 12.5mg PO daily -Monitor BP 4. Hypothyroidism -Resume levothyroxine 100 mcg PO daily 5. GERD -Resume omeprazole 40mg PO daily Admission Diagnosis Admission Status: Inpatient Order (span 2 midnights) Reason for Inpatient Admission: L femoral neck fracture DANDY LUJAN MD 04/27/22 1530: Allergies and Home Medications Allergies Coded Allergies: No Allergy Information Available (Unverified , 03/31/21) Patient Home Medication List Aspirin (Aspirin EC) 81 Mg Tablet.dr, 81 MG PO DAILY, (Reported) Entered as Reported by: SHIKHA FREIRE on 04/01/21 0300 Last Action: Reviewed Carvedilol (Carvedilol) 12.5 Mg Tablet, 12.5 MG PO BID, (Reported) Entered as Reported by: SHIKHA FREIRE on 04/01/21 0256 Last Action: Reviewed Hydrochlorothiazide (Hydrochlorothiazide) 12.5 Mg Tablet, 12.5 MG PO DAILY, (Reported) Entered as Reported by: TRISTON BONDS on 04/29/22 1400 Last Action: Reviewed Levothyroxine Sodium (Euthyrox) 88 Mcg Tablet, 88 MCG PO DAILY, (Reported) Entered as Reported by: NINO MILAN on 04/27/22 0247 Last Action: Reviewed Mirabegron (Myrbetriq) 50 Mg Tab.er.24h, 50 MG PO DAILY, (Reported) Entered as Reported by: SHIKHA FREIRE on 04/01/21255 Last Action: Reviewed Omeprazole (Omeprazole) 40 Mg Capsule.dr, 40 MG PO DAILY, (Reported) Entered as Reported by: SHIKHA FREIRE on 04/01/21255 Last Action: Reviewed Potassium Chloride (Klor-Con 10) 10 Meq Tablet.er, 10 MEQ PO BID, (Reported) Entered as Reported by: TRISTON BONDS on 04/29/221399 Last Action: Reviewed Simvastatin (Simvastatin) 40 Mg Tablet, 40 MG PO DAILY, (Reported) Entered as Reported by: SHIKHA FREIRE on 04/01/21255 Last Action: Reviewed Tolterodine Tartrate (Tolterodine Tartrate ER) 4 Mg Cap.er.24h, 4 MG PO HS, (Reported) Entered as Reported by: SHIKHA FREIRE on 04/01/21255 Last Action: Reviewed Tramadol HCl (Tramadol HCl) 50 Mg Tablet, 50-100 MG PO Q8H PRN for PAIN-MODERATE (5-7), (Reported) Entered as Reported by: SHIKHA FREIRE on 04/01/21255 Last Action: Reviewed Discontinued Medications Enoxaparin Sodium (Enoxaparin Sodium) 40 Mg/0.4 Ml Syringe, 40 MG SC Q24H Discontinued Reason: No Longer Taking Prescribed by: CHRISTINA DILLARD on 04/05/21 1023 Last Action: Discontinued Levothyroxine Sodium (Synthroid) 100 Mcg Tablet, 100 MCG PO DAILY, (Reported) Discontinued Reason: No Longer Taking Entered as Reported by: SHIKHA FREIRE on 04/01/21255 Last Action: Discontinued Oxycodone Hcl (Oxyir Tablet) 5 Mg Tab, 2.5-5 MG PO Q4H PRN for PAIN MODERATE- SEVERE Discontinued Reason: No Longer Taking Prescribed by: CHRISTINA DILLARD on 04/05/21 1023 Last Action: Discontinued Sennosides (Senna Lax) 8.6 Mg Tablet, 8.6 MG PO BID Discontinued Reason: No Longer Taking Prescribed by: CHRISTINA DILLARD on 04/05/21 1023 Last Action: Discontinued [Hydrochlorothiazide] , (Reported) Discontinued Reason: Duplicate Order Entered as Reported by: NINO MILAN on 04/27/22246 Last Action: Discontinued [Pot] , (Reported) Discontinued Reason: Duplicate Order Entered as Reported by: NINO MILAN on 04/27/22246 Last Action: Discontinued Assessment/Plan Assessment and Plan Patient is being admitted for operative repair of hip fracture. She suffered a fall at home and was found to have an acute hip fracture. She is to be taken to surgery today following perioperative risk assessment. Cardiology has been consulted given her history of aortic valve replacement. Given her high level of function prior to this injury benefits seem to outweigh the risk of surgery though given her age and cardiac issues she is at intermediate risk for cardiac event perioperatively. We will resume her home medications as appropriate when she is able to take oral medications. We will start physical therapy and Occupational Therapy also postoperatively. Supervisory-Addendum Brief Verification & Attestation Participated in pt care: history, MDM, physical Personally performed: exam, history, MDM, supervision of care Care discussed with: Medical Student Procedures: n/a Results interpretation: Verified all documentation Verification and Attestation of Medical Student E/M Service A medical student performed and documented this service in my presence. I reviewed and verified all information documented by the medical student and made modifications to such information, when appropriate. I personally performed the physical exam and medical decision making. Dandy Lujan, Apr 27, 2022,15:30 ADENIKE WILLSON Apr 27, 2022 08:53 DANDY LUJAN MD Apr 27, 2022 15:30
[2022-04-27] MEDS ORDERED: diphenhydrAMINE 50 MG/ML INJ (BENADRYL) IVP PRN (09:30)
[2022-04-27] MEDS ORDERED: morphine INJ 4 MG/ML 1 ML (VIAL/SYRINGE) IVP PRN (09:30)
[2022-04-27] MEDS ORDERED: ACETAMINOPHEN 325 MG TABLET PO PRN (09:30)
[2022-04-27] MEDS ORDERED: ONDANSETRON 4 MG/2 ML (SDV) Z0FRAN IVP PRN ×2 (09:30→13:45)
[2022-04-27] MEDS ORDERED: TEMAZEPAM 15 MG (RESTORIL) CAP PO PRN (09:30)
[2022-04-27] MEDS ORDERED: BUPIVACAINE 0.5% 30 ML (SENSORCAINE) VIAL ONE (10:26)
--- NOTE | 2022-04-27 10:44 | Occ Therapy Progress Note ---
Therapy Progress Note OT orders received. Per chart, pt had a left hip bipolar replacement today (04/27/22). OT will initiate evaluation post op day 1 (04/28/22). Digna Domínguez OT Apr 27, 2022 10:44
[2022-04-27] MEDS: LACTATED RINGERS 1,000 ML IV PRN ×2 (11:55→12:55)
[2022-04-27] MEDS ORDERED: fentaNYL INJ 100 MCG/2 ML AMP ONE (12:01)
[2022-04-27] MEDS ORDERED: ONDANSETRON 4 MG/2 ML (SDV) Z0FRAN ONE (12:02)
[2022-04-27] MEDS ORDERED: ROCURONIUM 10 MG/ML 5 ML SYRINGE IV ONE (12:02)
[2022-04-27] MEDS ORDERED: proPOfol 200 MG/20 ML (DIPRIVAN) VIAL IV ONE (12:02)
[2022-04-27] MEDS ORDERED: LIDOCAINE PF 2% 5 ML (XYLOCAINE) VIAL ONE (12:02)
[2022-04-27] MEDS ORDERED: ceFAZolin INJECTION 2,000 MG in NS (IVPB) 50 ML IV ONE (12:15)
[2022-04-27] MEDS ORDERED: PHENYLEPHRINE INJ 10 MG/ML (FOR PYXIS KITS ONLY) ONE (12:56)
[2022-04-27] MEDS ORDERED: NEOSTIGMINE (BLOXIVERZ ) 1 MG/1ML 10 ML VIAL ONE (12:59)
[2022-04-27] MEDS ORDERED: GLYCOPYRROLATE 0.2 MG/ML (ROBINUL) 2 ML VIAL ONE (12:59)
[2022-04-27] MEDS ORDERED: fentaNYL INJ 100 MCG/2 ML AMP IVP ONE (13:45)
--- NOTE | 2022-04-27 14:17 | Physical Therapy Progress Note ---
Therapy Progress Note Order for evaluation received. Patient is still not in her room from surgery. Will start tomorrow morning. LIZET ROBLERO PT Apr 27, 2022 14:16
--- NOTE | 2022-04-27 15:24 | Physical Therapy Evaluation ---
PT Evaluation-General Medical Diagnosis Admission Date Apr 27, 2022 at 03:50 Medical Diagnosis: left CARO Onset Date: Apr 27, 2022 Therapy Diagnosis Therapy Diagnosis: impaired mobility, strength Precautions Precautions/Isolations: Fall Prevention, Standard Precautions Weight Bear Status Left Lower Extremity: Left Weight Bearing/Tolerated Referral Physician: Stas Reason for Referral: Evaluation/Treatment Medical History Pertinent Medical History: HTN, Hypothroidism Additional Medical History Past Medical History Surgeries: Adenoidectomy, Appendectomy, Cardiac, Gallbladder, Orthopedic, Tonsillectomy, Valve Replacement Currently Using CPAP: No Currently Using BIPAP: No High Cholesterol, Hypertension, Valvular Heart Disease 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 1-Oeiecrnenz-fkodptw completes the activity by him/herself with no assistance from a helper. 5-Set-up or Clean-up Assistance-helper sets up or cleans up; patient completes activity. [place] assists only prior to or following the activity. 4-Supervision or Touching Assistance-helper provides verbal cues and/or touching/steadying and/or contact guard assistance as patient completes activity. Assistance may be provided throughout the activity or intermittently. 3-Partial/Moderate Assistance-helper does LESS THAN HALF the effort. [place] lifts, holds or supports trunk or limbs, but provides less than half the effort. 2-Substantial/Maximal Assistance-helper does MORE THAN HALF the effort. [place] lifts or holds trunk or limbs and provides more than half the effort. 3-Lxeyqjqjv-unjfwv does ALL the effort. Patient does none of the effort to complete the activity. Or, the assistance of 2 or more helpers is required for the patient to complete the activity. If activity was not attempted, code reason: 7-Patient Refused. 9-Not Applicable-not attempted and the patient did not perform the activity before the current illness, exacerbation or injury. 10-Not Attempted due to Environmental Limitations-(lack of equipment, weather restraints, etc.). 88-Not Attempted due to Medical Conditions or Safety Concerns. Bed Mobility: 6 Transfers (B,C,W/C): 6 Gait: 6 Stairs: 6 Indoor Mobility (Ambulation): Independent Stairs: Independent Prior Devices Use: None PT Evaluation-Current Subjective Patient in bed pre tx, agrees to PT. Patient had a late surgery and got back to her room not long ago, patient is very drowsy, can talk a little but goes to sleep, needs constant cues to stay awake. Pt/Family Goals none stated Objective Patient Orientation: Person, Place, Situation Attachments: Oxygen, IV Sensory Hearing: Functional Sensation Right Lower Extremit: Intact Sensation Left Lower Extremity: Intact Treatment Patient performs LLE total hip protocol x10 (AP, QS, GS, HS, SAQ, SLR, hip ab d/add). Patient needed constant cues to wake up and perform more reps, very drowsy, not safe to get up at this time. Assessment/Needs Patient in bed post tx with nurse call, phone, tray, all needs met. Patient too drowsy to get up at this time but was able to perform total hip protocol exercises. Rehab Potential: Fair PT Translator Interpreter Goals Translator Interpreter Goals PT Translator Interpreter Goals Time Frame: May 04, 2022 Roll Left & Right (QC): 4 Sit to Lying (QC): 4 Lying-Sitting on Side/Bed(QC): 4 Sit to Stand (QC): 4 Chair/Alj-pf-Febnp Xfer(QC): 4 Walk 10 feet (QC): 4 Walk 50ft with 2 Turns (QC): 4 PT Plan Problem List Problem List: Activity Tolerance, Functional Strength, Safety, Balance, Gait, Transfer, Bed Mobility, ROM Treatment/Plan Treatment Plan: Continue Plan of Care Treatment Plan: Bed Mobility, Education, Functional Activity Ciera, Functional Strength, Gait, Safety, Therapeutic Exercise, Transfers Treatment Duration: May 04, 2022 Frequency: 11 times per week Estimated Hrs Per Day: .25 hour per day Patient and/or Family Agrees t: Yes Safety Risks/Education Patient Education: Correct Positioning, Safety Issues Teaching Recipient: Patient Teaching Methods: Demonstration, Discussion Response to Teaching: Reinforcement Needed Discharge Recommendations Plan Patient will perform bed mobility and transfer training, balance and endurance training, functional strengthening, stair training, gait training, and education, to improve functional mobility and independence at home. Therapy Discharge Recommendati: Home & Family, Post Acute PT Time Time In: 1504 Time Out: 1516 DATE: Apr 27, 2022 Total Billed Treatment Time: 12 Total Billed Treatment 1 visit NOLVIAM 12' LZIET ROBLERO PT Apr 27, 2022 15:24
--- NOTE | 2022-04-27 16:17 | Diagnostic Imaging Report ---
EXAMINATION: Left hip, one view. HISTORY: Postoperative exam. COMPARISON: 04/27/2022. FINDINGS: There is a new left hip hemiarthroplasty. Alignment is near-anatomic. There are skin monae and subcutaneous gas. No acute fracture. IMPRESSION: Left hip hemiarthroplasty with components in the expected position. Dictated by: Dictated on workstation # [id number]
[2022-04-27] MEDS ORDERED: CEFUROXIME INJECTION 750 MG in NS (IVPB) 50 ML IV SCH (17:30)
--- NOTE | 2022-04-27 18:55 | Consultation-Cardiology ---
HPI-Cardiology Cardiology Consultation: Date of Consultation 04/27/22 Time Seen by a Provider: 09:30 Date of Admission Attending Physician Stephanie,Local Physician Admitting Physician Admitting Physician: Thom Corey MD Attending Physician: Thom Corey MD Consulting Physician GIANNA SCHAFER MD, MA, FACP, FACC, FSCAI, CCDS HPI: Chief Complaint: Pre-op cardiac eval Ms. Quinones is an 87 yr old female admitted to [facility] from the ED. She reports she got up last night and fell. She denies any syncope. She is lethargic and drifts to sleep easily. She awakens easily, but is only able to provide a very limited history. She denies any c/o CP, SOB or palpitations. She does state she sees Dr. Johnson. She reports she had heart surgery at [place] stating she thinks it was a valve, but is unable to provide any other information. She states she does not take any blood thinners, only a baby ASA. Review of Systems-Cardiology All Other Systems Reviewed Negative Unless Noted: Yes PMC-Lsicnh-[place] Hx Patient Social History Smoking Status: Never a Smoker Have you traveled recently?: No Alcohol Use?: No Pt feels they are or have been: No Immunizations Up To Date Date of Influenza Vaccine: Feb 12, 2021 Past Medical History PMH As described under Assessment. Family Medical History Family Medical History: Unabe to provide any history Allergies and Home Medications Allergies Coded Allergies: No Allergy Information Available (Unverified , 03/31/21) Patient Home Medication List Home Medication List Reviewed: Yes Aspirin (Aspirin EC) 81 Mg Tablet., 81 MG PO DAILY, (Reported) Entered as Reported by: SHIKHA FREIRE on 04/01/21 0300 Carvedilol (Carvedilol) 12.5 Mg Tablet, 12.5 MG PO BID, (Reported) Entered as Reported by: SHIKHA FREIRE on 04/01/21 0256 Enoxaparin Sodium (Enoxaparin Sodium) 40 Mg/0.4 Ml Syringe, 40 MG SC Q24H Prescribed by: CHRISTINA DILLARD on 04/05/21 1023 Levothyroxine Sodium (Synthroid) 100 Mcg Tablet, 100 MCG PO DAILY, (Reported) Entered as Reported by: SHIKHA FREIRE on 11/18/21 0256 Levothyroxine Sodium (Euthyrox) 88 Mcg Tablet, (Reported) Entered as Reported by: NINO MILAN on 04/27/22246 Last Action: New Order Mirabegron (Myrbetriq) 50 Mg Tab.er.24h, 50 MG PO DAILY, (Reported) Entered as Reported by: SHIKHA FREIRE on 04/01/21255 Omeprazole (Omeprazole) 40 Mg Capsule.dr, 40 MG PO DAILY, (Reported) Entered as Reported by: SHIKHA FREIRE on 04/01/21255 Oxycodone Hcl (Oxyir Tablet) 5 Mg Tab, 2.5-5 MG PO Q4H PRN for PAIN MODERATE- SEVERE Prescribed by: CHRISTINA DILLARD on 04/05/21 102 Sennosides (Senna Lax) 8.6 Mg Tablet, 8.6 MG PO BID Prescribed by: CHRISTINA DILLARD on 04/05/21 102 Simvastatin (Simvastatin) 40 Mg Tablet, 40 MG PO DAILY, (Reported) Entered as Reported by: SHIKHA FREIRE on 04/01/21255 Tolterodine Tartrate (Tolterodine Tartrate ER) 4 Mg Cap.er.24h, 4 MG PO HS, (Reported) Entered as Reported by: SHIKHA FREIRE on 04/01/21255 Tramadol HCl (Tramadol HCl) 50 Mg Tablet, 50-100 MG PO Q8H PRN for PAIN-MODERATE (5-7), (Reported) Entered as Reported by: SHIKHA FREIRE on 04/01/21255 [Hydrochlorothiazide] , (Reported) Entered as Reported by: NINO MILAN on 04/27/22246 Last Action: New Order [Pot] , (Reported) Entered as Reported by: NINO MILAN on 04/27/22246 Last Action: New Order Physical Exam-Cardiology Physical Exam Vital Signs/I&O 04/27/22 04/27/22 04/27/22 04/27/22 07:00 07:51 08:08 08:09 Temp 35.8 36.8 Pulse 100 103 Resp 18 B/P (MAP) 145/61 (89) Pulse Ox 89 O2 Delivery Nasal Cannula O2 Flow Rate 2.00 04/27/22 04/27/22 04/27/22/14/22 13:26 13:26 13:30 13:30 Temp 37.0 Resp 20 20 B/P (MAP) 118/85 (96) 126/70 (88) Pulse Ox 96 96 O2 Delivery OxyMask OxyMask OxyMask OxyMask O2 Flow Rate 6.00 6.00 6.00 6.00 04/27/22 04/27/22 04/27/22 04/27/22 13:40 13:45 13:50 14:00 Resp 20 20 20 B/P (MAP) 121/93 (102) 113/44 (67) 100/49 (66) Pulse Ox 94 92 94 O2 Delivery OxyMask OxyMask OxyMask OxyMask O2 Flow Rate 6.00 4.00 6.00 4.00 04/27/22 04/27/22 04/27/22 04/27/22 14:00 14:10 14:15 14:25 Temp 36.9 Resp 20 20 B/P (MAP) 105/52 (69) 108/59 (75) Pulse Ox 94 94 O2 Delivery OxyMask OxyMask Nasal Cannula Nasal Cannula O2 Flow Rate 4.00 4.00 3.00 3.00 04/27/22 04/27/22 14:25 15:24 Temp 36.5 Pulse 100 Resp 20 B/P (MAP) 113/51 (71) Pulse Ox 97 O2 Delivery Nasal Cannula Nasal Cannula O2 Flow Rate 3.00 2.00 Capillary Refill : Less Than 3 Seconds Constitutional: well-developed, well-nourished, other (Oriented x 3, lethargic) HEENT: PERRL, hearing is well preserved Neck: No carotid bruit; carotid pulses are 2 + bilaterally Respiratory: No accessory muscle use, No respiratory distress; chest expansion is symmetric, chest is bilaterally symmetric, lungs clear to auscultation Cardiovascular: regular rate-rhythm; No JVD; S1 and S2, systolic murmur (3/6) Gastrointestinal: No tender; soft, audible bowel sounds Extremities: no lower extremity edema bilateral Neurologic/Psychiatric: other (moves all extremities; did not attempt movement of left leg d/t fracture) Skin: No rash on exposed areas, No ulcerations on exposed areas Data Review Labs Laboratory Tests 04/27/22 03:07: White Blood Count 10.8, Red Blood Count 5.18H, Hemoglobin 15.1, Hematocrit 47, Mean Corpuscular Volume 90, Mean Corpuscular Hemoglobin 29, Mean Corpuscular Hemoglobin Concent 32, Red Cell Distribution Width 12.2, Platelet Count 214, Mean Platelet Volume 10.0, Immature Granulocyte % (Auto) 1, Neutrophils (%) (Auto) 80H, Lymphocytes (%) (Auto) 13, Monocytes (%) (Auto) 6, Eosinophils (%) (Auto) 1, Basophils (%) (Auto) 0, Neutrophils # (Auto) 8.6H, Lymphocytes # (Auto) 1.4, Monocytes # (Auto) 0.6, Eosinophils # (Auto) 0.1, Basophils # (Auto) 0.0, Immature Granulocyte # (Auto) 0.1, Prothrombin Time 14.9H, INR Comment 1.1, Activated Partial Thromboplast Time 31, Sodium Level 139, Potassium Level 3.0L, Chloride Level 99, Carbon Dioxide Level 30, Anion Gap 10, Blood Urea Nitrogen 7, Creatinine 0.77, Estimat Glomerular Filtration Rate 76, BUN/Creatinine Ratio 9, Glucose Level 117H, Calcium Level 9.4, Corrected Calcium 9.6, Total Bilirubin 0.8, Aspartate Amino Transf (AST/SGOT) 24, Alanine Aminotransferase (ALT/SGPT) 23, Alkaline Phosphatase 75, Total Protein 7.5, Albumin 3.7 04/27/22 03:20: Urine Color YELLOW, Urine Clarity CLEAR, Urine pH 6.0, Urine Specific [place] 1.020, Urine Protein NEGATIVE, Urine Glucose (UA) NEGATIVE, Urine Ketones NEGA TIVE, Urine Nitrite NEGATIVE, Urine Bilirubin NEGATIVE, Urine Urobilinogen 0.2, Urine Leukocyte Esterase NEGATIVE, Urine RBC (Auto) TRACE-IH, Urine RBC NONE, Urine WBC NONE, Urine Crystals NONE, Urine Bacteria NEGATIVE, Urine Casts NONE, Urine Mucus NEGATIVE, Urine Culture Indicated NO Laboratory Tests 04/27/22 03:07 A/P-Cardiology Assessment/Admission Diagnosis S/P non-syncopal fall resulting in left hip fracture - management per Dr. Marcelo H/O heart valve surgery at [facility] - details are unknown to the pt - 07/18 cardiac murmur on physical exam of aortic stenosis/sclerosis without s/s of angina or heart failure HTN Hypothyroidism AMS Discussion and Recomendations S/P non-syncopal fall with left hip fracture for which she is waiting on surgery by Dr. Marcelo Reports h/o valve replacement, but details are unknown - request records from [place] - Echocardiogram - EKG - cardiac risk for surgery estimated to be intermediate HTN - continue home dose of Coreg Replenish potassium Monitor lab Advise DVT prophylaxis Cardiac murmur of aortic stenosis/sclerosis without s/s of angina or heart failure. Risk for non-cardiac surgery is intermediate. Avoid hypotension. Further recs will be based on the above and hospital course We would like to thank Dr. Lujan for this consult GIANNA CSHAFER MD FACP FAC CCDS Apr 27, 2022 18:55
[2022-04-27] MEDS: CEFUROXIME INJECTION 750 MG in NS (IVPB) 50 ML IV SCH (20:03)
[2022-04-27] MEDS: SENNOSIDES 8.6 MG (SENOKOT) TAB PO SCH (20:03)
--- NOTE | 2022-04-27 22:18 | OPERATIVE REPORT ---
DATE OF SERVICE: 04/27/2022 PREOPERATIVE DIAGNOSIS: Closed displaced left femoral neck fracture. POSTOPERATIVE DIAGNOSIS: Closed displaced left femoral neck fracture. PROCEDURE: Left hip bipolar replacement. SURGEON: Matt Underwood MD. EMPLOYMENT PROGRAM REPRESENTATIVE: Prosper Mcclelland, who assisted throughout the procedure and closed the incision. ANESTHESIA: General endotracheal by Osmar Red CRNA. ESTIMATED BLOOD LOSS: 100 mL DRAINS: None. COMPLICATIONS: None. POSTOPERATIVE PLAN: Routine hip protocol. The patient was transferred to recovery room in awake and stable condition. IMPLANTS: Synthes press-fit 2 stem with a 45 liner and standard neck. STATEMENT OF MEDICAL NECESSITY: The patient is an 87-year-old independently living female who fell at home and presented to the emergency department early this morning with a closed displaced left femoral neck fracture. The patient was counseled regarding treatment options and elected to proceed with surgical intervention. DESCRIPTION OF PROCEDURE: After risks and benefits of procedure were discussed and questions were answered and informed consent was signed and placed on the chart, the operative site was confirmed in the preoperative holding area initialed by surgeon. The patient was then transferred to the operating room and after adequate levels of general endotracheal anesthetic was obtained, timeout was called, confirming the operative site. The patient was then carefully placed in the right lateral decubitus position being careful to place an axillary roll and pad all bony prominences. Left hip and lower extremity were prepped and draped in the usual sterile fashion. Standard lateral approach was utilized. Hemostasis was obtained with cautery. The iliotibial band was incised in line with the incision. The abductor was released from the greater trochanter, leaving a 2 cm cuff for later reattachment. Hip capsulotomy was performed. The femoral neck cut was made at the proper height by using a broach as a guide, the femoral head was removed without difficulty. The acetabulum was irrigated with no loose bodies noted. The proximal femur was then prepared with the box chisel followed by the T-handle reamer and sequential broaches up to a size 2. The 2 provided excellent fill. This was then trialled with a 45 mm liner standard neck. The hip was reduced, taken through range of motion with no limitations in motion noted with no impingement noted, no instability noted in any plane. The hip was then redislocated. The trials were removed. The joint was further irrigated with pulse lavage. The stem was then placed in a press-fit fashion, and 15 degrees of anteversion. No fracture lines were identified. The proximal aspect was irrigated and dried and the head liner construct was placed. The hip was then re-reduced after irrigating the acetabulum, ensuring that there were no loose bodies. The hip was taken through range of motion. Full motion was obtained with no impingement noted and no instability noted in any plane. The wound was further irrigated. The abductor and capsule were closed with #5 Tevdek in [id number] interrupted fashion. The wound was further irrigated. The iliotibial band was closed with #1 Vicryl in a running fashion. The wound was further irrigated and a 0 Vicryl was used for the deep subcutaneous layer, 2-0 Vicryl for the superficial subcutaneous layer and monae were used on the skin. Soft dressing was applied. The patient was transferred to the recovery room awake and in stable condition. Job ID: [id number] DocumentID: [id number] Dictated Date: 04/27/2022 13:21:31 Window Shade Estimator Date: 04/27/2022 22:16:00 Dictated By: MATT UNDERWOOD MD
[2022-04-27] MEDS: HYDROcodone/APAP 7.5 MG/325 MG (LORTAB, LORCET PLUS) TABLET PO PRN (23:42)
[2022-04-28] MEDS: D5 1/2 NS W/KCL 20 MEQ/L 1,000 ML IV SCH ×4 (02:15→22:23)
[2022-04-28 03:05] VITALS: BP 100/53
[2022-04-28] MEDS: CEFUROXIME INJECTION 750 MG in NS (IVPB) 50 ML IV SCH (04:42)
[2022-04-28 04:43] VITALS: BP 102/55
[2022-04-28] MEDS: HYDROcodone/APAP 7.5 MG/325 MG (LORTAB, LORCET PLUS) TABLET PO PRN ×2 (04:50→20:17)
[2022-04-28 06:09] LABS: POTASSIUM 3.7 MMOL/L (3.6-5.0)
[2022-04-28 06:11] LABS: CALCIUM 7.8 MG/DL (8.5-10.1)
[2022-04-28 06:15] LABS: CREATININE SERUM 0.69 MG/DL (0.60-1.30)
[2022-04-28 06:18] LABS: MAGNESIUM 1.4 MG/DL (1.6-2.4)
[2022-04-28 07:26] VITALS: BP 95/50
[2022-04-28] MEDS: ENOXAPARIN 40 MG/0.4 ML (LOVENOX) SYR SC SCH (07:43)
[2022-04-28] MEDS ORDERED: LEVOTHYROXINE 88 MCG (LEVOTHORID) TAB PO NR (08:00)
--- NOTE | 2022-04-28 08:03 | Progress Note ---
Standard Progress Note Progress Notes/Assess & Plan Date Seen by a Provider: Apr 28, 2022 Time Seen by a Provider: 08:02 Progress/Assessment & Plan no complaints Laboratory Tests Test 04/28/22 05:21 Range/Units Hemoglobin 12.0 # 11.5-16.0 g/dL Hematocrit 36 35-52 % Sodium Level 133 L 135-145 MMOL/L Potassium Level 3.7 3.6-5.0 MMOL/L Chloride Level 100 98-107 MMOL/L Carbon Dioxide Level 25 21-32 MMOL/L Anion Gap 8 5-14 MMOL/L Blood Urea Nitrogen 7 7-18 MG/DL Creatinine 0.69 0.60-1.30 MG/DL Estimat Glomerular Filtration Rate 85 BUN/Creatinine Ratio 10 Glucose Level 118 H 70-105 MG/DL Calcium Level 7.8 L 8.5-10.1 MG/DL Magnesium Level 1.4 L 1.6-2.4 MG/DL Vital Signs Date Time Temp Pulse Resp B/P (MAP) Pulse Ox O2 Delivery O2 Flow Rate FiO2 04/28/22 07:26 37.1 97 18 95/50 (65) 95 Nasal Cannula 3.00 04/28/22 07:13 99 04/28/22 04:43 102/55 (71) 04/28/22 03:05 37.4 100 20 100/53 (69) 95 Nasal Cannula 3.00 04/28/22 01:00 109 04/27/22 23:22 37.6 100 20 107/59 (75) 93 Nasal Cannula 2.00 04/27/22 23:07 102 16 100/53 (69) 94 Nasal Cannula 2.00 04/27/22 22:59 101 16 92/51 (65) 95 Nasal Cannula 2.00 04/27/22 22:42 94/48 (63) 04/27/22 20:52 95 Nasal Cannula 2.00 04/27/22 20:02 100 105/51 (69) 04/27/22 19:09 36.6 101 18 98/60 (73) 97 Nasal Cannula 2.00 04/27/22 19:00 100 04/27/22 15:24 36.5 100 20 113/51 (71) 97 Nasal Cannula 2.00 04/27/22 14:25 Nasal Cannula 3.00 04/27/22 14:25 36.9 20 108/59 (75) 94 Nasal Cannula 3.00 04/27/22 14:15 Nasal Cannula 3.00 04/27/22 14:10 20 105/52 (69) 94 OxyMask 4.00 04/27/22 14:00 OxyMask 4.00 04/27/22 14:00 20 100/49 (66) 94 OxyMask 4.00 04/27/22 13:50 20 113/44 (67) 92 OxyMask 6.00 04/27/22 13:45 OxyMask 4.00 04/27/22 13:40 20 121/93 (102) 94 OxyMask 6.00 04/27/22 13:30 20 126/70 (88) 96 OxyMask 6.00 04/27/22 13:30 OxyMask 6.00 04/27/22 13:26 37.0 20 118/85 (96) 96 OxyMask 6.00 04/27/22 13:26 OxyMask 6.00 04/27/22 08:09 Nasal Cannula 2.00 04/27/22 08:08 36.8 I & O 04/28/22 07:00 Intake Total 1300 ml Output Total 1600 ml Balance -300 ml L hip dressing intact no calf tenderness intact DF and PF of toes and ankle s/p L hip bipolar mobize as able SW for DC planning MARIKA UNDERWOOD MD Apr 28, 2022 08:03
[2022-04-28] MEDS: SENNOSIDES 8.6 MG (SENOKOT) TAB PO SCH ×2 (08:46→20:14)
--- NOTE | 2022-04-28 09:05 | Cardiology Progress Note ---
Subjective Date Seen by Provider: Apr 28, 2022 Time Seen by Provider: 09:03 Subjective/Events-last exam Patient was seen at bedside, laying down comfortably, feeling better. No new complain Review of Systems General: No Chills, No Night Sweats, No Fatigue, No Malaise, No Appetite, No Other HEENT: No Head Aches, No Visual Changes, No Eye Pain, No Ear Pain, No Dyspha azucena, No Sinus Congestion, No Post Nasal Drip, No Sore Throat, No Other Pulmonary: No Dyspnea, No Cough, No Pleuritic Chest Pain, No Other Cardiovascular: No: Chest Pain, Palpitations, Orthopnea, Paroxysmal Noc. Dyspnea, Edema, Lt Headedness, Other Objective-Cardiology Exam Last Set of Vital Signs Vital Signs 04/28/22 04/28/22 07:26 08:00 Temp 37.1 Pulse 97 Resp 18 B/P (MAP) 95/50 (65) Pulse Ox 95 O2 Delivery Nasal Cannula O2 Flow Rate 3.00 I&O Intake and Output 04/27/22 23:59 Intake Total 2100 ml Output Total 1400 ml Balance 700 ml Intake Oral 100 ml IV Total 2000 ml Output Urine Total 1400 ml Daily Weight Change No No General: Alert, Oriented X3, Cooperative HEENT: Atraumatic, PERRLA Neck: Supple, No JVD, No Thyromegaly Lungs: Clear to Auscultation, Normal Air Movement Heart: Regular Rate, Normal S1, Normal S2, Other (Systolic murmur at the left sternal border) Abdomen: Normal Bowel Sounds, Soft, No Tenderness, No Hepatosplenomegaly, No Masses Extremities: No Clubbing, No Cyanosis, No Edema, Normal Pulses, No Tend erness/Swelling Skin: No Rashes, No Breakdown, No Significant Lesion Neuro: Normal Gait, Normal Speech, Strength at 5/5 X4 Ext, Normal Tone, Sensation Intact Psych/Mental Status: Mental Status NL, Mood NL Results Lab Laboratory Tests 04/28/22 05:21 A/P-Cardiology Admission Diagnosis Hip fracture Aortic valve replacement Hypertension Anemia Assessment/Plan Status post hip fracture secondary to nonsyncopal fall Status post hip surgery done with Dr. Marcelo Recovering well History of aortic valve replacement. Has cardiac murmur Continue to monitor History of hypertension, borderline hypotensive today. Hold Coreg and monitor blood pressure Hypothyroidism. Followed and managed by primary care physician Anemia, monitor H&H ESAU LUNDY MD Apr 28, 2022 09:05
--- NOTE | 2022-04-28 10:07 | Physical Therapy Daily Note ---
PT Daily Note-Current Subjective Patient agrees to PT. Pain Numeric Pain Scale: 10-Worst Possible Pain Location: Left Location Body Site: Hip Pain Description: Acute Section J - Health Conditions 1. Rarely or not at all 2. Occasionally 3. Frequently 4. Almost constantly 8. Unable to answer Pain Effect on Sleep: 2 Pain Interference with Therapy: 2 Pain Interference w/Day-to-Day: 2 Mental Status Patient Orientation: Normal For Age Attachments: Oxygen, Mancuso Catheter, IV Transfers SCALE: Activities may be completed with or without assistive devices. 5-Fzstxgvcrl-chfwvcl completes the activity by him/herself with no assistance from a helper. 5-Set-up or Clean-up Assistance-helper sets up or cleans up; patient completes activity. [place] assists only prior to or following the activity. 4-Supervision or Touching Assistance-helper provides verbal cues and/or touching/steadying and/or contact guard assistance as patient completes activity. Assistance may be provided throughout the activity or intermittently. 3-Partial/Moderate Assistance-helper does LESS THAN HALF the effort. [place] lifts, holds or supports trunk or limbs, but provides less than half the effort. 2-Substantial/Maximal Assistance-helper does MORE THAN HALF the effort. [place] lifts or holds trunk or limbs and provides more than half the effort. 2-Ouytzjwud-pwodop does ALL the effort. Patient does none of the effort to complete the activity. Or, the assistance of 2 or more helpers is required for the patient to complete the activity. If activity was not attempted, code reason: 7-Patient Refused. 9-Not Applicable-not attempted and the patient did not perform the activity before the current illness, exacerbation or injury. 10-Not Attempted due to Environmental Limitations-(lack of equipment, weather restraints, etc.). 88-Not Attempted due to Medical Conditions or Safety Concerns. Lying to Sitting/Side of Bed(Q: 1 Sit to Stand (QC): 1 Chair/Qmf-zv-Gbcop Xfer(QC): 1 Weight Bearing Left Lower Extremity: Left Weight Bearing/Tolerated Exercises Seated Therapy Exercises: Long arc quads Seated Reps: 15 Assessment Education with patient on importance of weight bearing left LE to perform standing. Patient voices understanding, however, unable to perform. Patient up in recliner dependent assist with not weight bearing left LE at all. PT to increase activity as tolerated by patient. PT Vp Software Goals Mcc Goals PT Vp Software Goals Time Frame: May 04, 2022 Roll Left & Right (QC): 4 Sit to Lying (QC): 4 Lying-Sitting on Side/Bed(QC): 4 Sit to Stand (QC): 4 Chair/Vtr-ws-Ynhkv Xfer(QC): 4 Walk 10 feet (QC): 4 Walk 50ft with 2 Turns (QC): 4 PT Plan Treatment/Plan Treatment Plan: Continue Plan of Care Treatment Plan: Bed Mobility, Education, Functional Activity Ciera, Functional Strength, Gait, Safety, Therapeutic Exercise, Transfers Treatment Duration: May 04, 2022 Frequency: 11 times per week Estimated Hrs Per Day: .25 hour per day Patient and/or Family Agrees t: Yes Time Time In: 901 Time Out: 911 DATE: Apr 28, 2022 Total Billed Treatment Time: 10 Total Billed Treatment 1 visit FA 10 min EUSEBIA XAVIER PT Apr 28, 2022 10:07
--- NOTE | 2022-04-28 10:55 | Progress Note ---
ADENIKE WILLSON 04/28/22 1055: Subjective Date Seen by a Provider: Apr 28, 2022 Time Seen by a Provider: 08:30 Subjective/Events-last exam Ms. Quinones is an 87 year old female with a PMHx of valvular heart disease, HTN, HLD, hypothyroidism, GERD, and previous R hip fracture who presented to the [facility] ED after sustaining a fall to the left hip. Patient is sitting in recliner at time of encounter this morning finishing breakfast. Patient reports <5/10 left hip and leg pain this morning. She states her pain is improved since yesterday. Patient denies CP, SOA, abdominal pain, or N/V/D. Patient is tolerating PO fluids and solids. Patient denies having a BM or passing flatus yet. Urinary catheter is in place and patient states it is uncomfortable. Review of Systems General: No Chills HEENT: No Head Aches Pulmonary: No Dyspnea Cardiovascular: No: Chest Pain Gastrointestinal: No: Nausea, Vomiting, Abdominal Pain Genitourinary: Other (urinary catheter in place) Musculoskeletal: leg pain (left hip and leg pain) Objective Exam Last Set of Vital Signs Vital Signs Date Time Temp Pulse Resp B/P (MAP) Pulse Ox O2 Delivery O2 Flow Rate FiO2 04/28/22 08:00 95 Nasal Cannula 3.00 04/28/22 07:26 37.1 97 18 95/50 (65) Capillary Refill : Less Than 3 Seconds I&O Intake and Output 04/28/22 00:00 Intake Total 2100 ml Output Total 1400 ml Balance 700 ml Intake Oral 100 ml IV Total 2000 ml Output Urine Total 1400 ml Daily Weight Change No No General: Alert, No Acute Distress HEENT: Atraumatic Lungs: Clear to Auscultation, Normal Air Movement Heart: Regular Rate, Other (3/6 systolic murmur) Abdomen: Normal Bowel Sounds, Soft, No Tenderness Extremities: No Edema, Normal Pulses (bilateral dorsalis pedis +2) Skin: Other (dressing present on left hip ) Psych/Mental Status: Mental Status NL, Mood NL Results Lab Laboratory Tests 04/28/22 05:21: Hemoglobin 12.0#, Hematocrit 36, Sodium Level 133L, Potassium Level 3.7, Chlori de Level 100, Carbon Dioxide Level 25, Anion Gap 8, Blood Urea Nitrogen 7, Creatinine 0.69, Estimat Glomerular Filtration Rate 85, BUN/Creatinine Ratio 10, Glucose Level 118H, Calcium Level 7.8L, Magnesium Level 1.4L Radiology Echocardiogram 04/27 -LV: moderate concentric hypertrophy. EF 55-60%. 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 Left femoral neck fracture -Surgical management per Orthopedics -Pain control PRN Lortab 7.5mg Q4H -DVT prophylaxis with Lovenox and SCDs -Incentive spirometry post-operatively -PT/OT -> continue to encourage while managing pain to reach patient goal of r eturning home -Regular diet post-operatively as tolerated -Zofran 4mg Q4H PRN for nausea perioperatively -Stool softener regimen with docusate 100mg PO BID post-operatively -Remove urinary catheter when patient is able to safely transfer to bathroom 2. Hypokalemia with K of 3.0 -> Resolved to 3.7 -Repeat CMP in AM -Supplement with KCl 40 meq IV or PO postoperatively 3. HTN -> hypotension. Patient has developed hypotension likely secondary to post-operative volume status change. Discontinue carvedilol 12.5mg ----D-n-p-u-m-e- -h-o-m-e- -t-c-e-p-h-e-t-i-o-n-s-,- -K-k-d-d-n-u-i-l-o-l- -1-2-.-5-m-g- -P-O- -d-a-i-l-y- -Monitor BP 4. Hypothyroidism -Resume levothyroxine 100 mcg PO daily 5. GERD -Resume omeprazole 40mg PO daily 6. Hyponatremia of 133 (139 on 04/27) -Continue to monitor with AM CMP. Likely the result of post-operative volume status changes. 7. Pulmonary hypertension with pulmonary artery pressure of 50-55mmHg -Out-patient management recommended -Continue managing BP while in-patient Clinical Quality Measures Admission Status Admission Dx 1. Left femoral neck fracture -Surgical management per Orthopedics -Pain control PRN morphine 4mg Q2H IV -DVT prophylaxis with Lovenox and SCDs -Incentive spirometry post-operatively -PT/OT -Regular diet post-operatively as tolerated -Zofran 4mg Q4H PRN for nausea perioperatively -Stool softener regimen with docusate 100mg PO BID post-operatively 2. Hypokalemia with K of 3.0 -Repeat CMP in AM -Supplement with KCl 40 meq IV or PO postoperatively 3. HTN -Resume home medications, Carvedilol 12.5mg PO daily -Monitor BP 4. Hypothyroidism -Resume levothyroxine 100 mcg PO daily 5. GERD -Resume omeprazole 40mg PO daily ELENA LUJAN MD 04/28/22 1401: Assessment/Plan Assessment/Plan Assess & Plan/Chief Complaint Patient doing well postoperatively. She reports that she is having persistent pain and this is limiting her with physical therapy. Reminded her that she has pain medicine available to ask her nurse for it. Discussed need to work with physical therapy in order to work on regaining mobility. Also began discussions regarding discharge plans and possible need for correction placement if unable to return home safely. Supervisory-Addendum Brief Verification & Attestation Participated in pt care: history, MDM, physical Personally performed: exam, history, MDM, supervision of care Care discussed with: Medical Student Procedures: n/a Results interpretation: Verified all documentation Verification and Attestation of Medical Student E/M Service A medical student performed and documented this service in my presence. I reviewed and verified all information documented by the medical student and made modifications to such information, when appropriate. I personally performed the physical exam and medical decision making. Elena Lujan, Apr 28, 2022,14:00 ADENIKE WILLSON Apr 28, 2022 10:55 ELENA LUJAN MD Apr 28, 2022 14:01
[2022-04-28 11:23] VITALS: BP 108/54
--- NOTE | 2022-04-28 12:42 | Anesthesia-General Post-Op ---
General Patient Condition Mental Status/LOC: Same as Preop Cardiovascular: Satisfactory Nausea/Vomiting: Absent Respiratory: Satisfactory Pain: Controlled Complications: Absent Post Op Complications Complications None Follow Up Care/Instructions Patient Instructions None needed. Anesthesia/Patient Condition Patient Condition Patient is doing well, no complaints, stable vital signs, no apparent adverse anesthesia problems. No complications reported per nursing. RICKY HICKS CRNA Apr 28, 2022 12:42
--- NOTE | 2022-04-28 13:58 | Occupational Therapy Eval ---
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 0-Xsnsrkydpl-qlzwiyy completes the activity by him/herself with no assistance from a helper. 5-Set-up or Clean-up Assistance-helper sets up or cleans up; patient completes activity. [place] assists only prior to or following the activity. 4-Supervision or Touching Assistance-helper provides verbal cues and/or t ouching/steadying and/or contact guard assistance as patient completes activity. Assistance may be provided throughout the activity or intermittently. 3-Partial/Moderate Assistance-helper does LESS THAN HALF the effort. [place] lifts, holds or supports trunk or limbs, but provides less than half the effort. 2-Substantial/Maximal Assistance-helper does MORE THAN HALF the effort. [place] lifts or holds trunk or limbs and provides more than half the effort. 6-Bedgsfxri-wdgrez does ALL the effort. Patient does none of the effort to complete the activity. Or, the assistance of 2 or more helpers is required for the patient to complete the activity. If activity was not attempted, code reason: 7-Patient Refused. 9-Not Applicable-not attempted and the patient did not perform the activity before the current illness, exacerbation or injury. 10-Not Attempted due to Environmental Limitations-(lack of equipment, weather restraints, etc.). 88-Not Attempted due to Medical Conditions or Safety Concerns. ADL PLOF Comments Pt reports IND with ADLs and functional mobility, no AD. She has a walk in shower and SC. Self Care: Independent Functional Cognition: Independent OT Current Status Subjective Pt in bed, agreeable to OT Tx. Pt unable to state where she is or why she is here Mental Status/Objective Patient Orientation: Person, Confused Current Hand Dominance: Right Upper Extremity ROM WFL, BUE shoulder flexion to approx 150 degrees ADL-Treatment Eating (QC): 5 Oral Hygiene (QC): 3 (Pt would require min A with thoroughness of dentures) Lower Body Dressing (QC): 1 (Pt would require total to max A with LE Dressing at this time due to hip precautions) On/Off Footwear (QC): 1 (total A would be required due to hip precautions. ) Other Treatments Pt in bed, agreeable to OT evaluation/tx. Pt provided information about PLOF and home set up. Pt unable to recall that she was in the hospital or why she is here. OT educated pt on hip precautions, reinforcement required. Pt states she had 5 people bring her lunch, OT unsure on the accuracy of this information. Pt would require max A to total assist with LE dressing at this time due to hip precautions. Pt states she was able to soak her dentures last night and she had them in, OT noticed dentures sitting in cup on pt's tray table. Pt would require min A at this time to brush dentures. Pt declined ADLs at this itme, as she has already completed some this AM, pt also declined OOB activities. Post tx, pt in bed, call light in reach and all needs met. Education OT Patient Education: Correct positioning, Energy conservation, Modified ADL techniques, Progress toward Goal/Update tx plan, Purpose of tx/functional activities, Rehab process Teaching Recipient: Patient Teaching Methods: Discussion Response to Teaching: Verbalize Understanding OT Halfway Goals Stock Letterer Goals Time Frame: May 13, 2022 Eating (QC): 6 Oral Hygiene (QC): 6 Toileting Hygiene (QC): 4 Shower/Bathe Self (QC): 4 Upper Body Dressing (QC): 5 Lower Body Dressing (QC): 4 On/Off Footwear (QC): 4 Additional Goals: 1-Demonstrate ADL Tasks, 2-Verbalize Understanding, 3- ImproveStrength/Ciera 1=Demonstrate adherence to instructed precautions during ADL tasks. 2=Patient will verbalize/demonstrate understanding of assistive devices/modifications for ADL. 3=Patient will improve strength/tolerance for activity to enable patient to perform ADL's. OT Education/Plan Problem List/Assessment Assessment: Decreased Activ Tolerance, Decreased UE Strength, Impaired Funct Balance, Impaired I ADL's, Impaired Self-Care Skills Discharge Recommendations Plan/Recommendations: Continue POC Treatment Plan/Plan of Care Patient would benefit from OT for education, treatment and training to promote independence in ADL's, mobility, safety and/or upper extremity function for ADL's. Plan of Care: ADL Retraining, Functional Mobility, UE Funct Exercise/Act Treatment Duration: May 13, 2022 Frequency: 3 times per week (3-5 times per week) Estimated Hrs Per Day: .25 hour per day Agreement: Yes Rehab Potential: Fair Time Start Time: 13:08 Stop Time: 13:18 DATE: Apr 28, 2022 Total Time Billed (hr/min): 10 Billed Treatment Time 1, ANTHONY COX OT Apr 28, 2022 13:58
--- NOTE | 2022-04-28 14:26 | Physical Therapy Progress Note ---
Therapy Progress Note Attempted to perform PROM bilateral LE with patient yelling,"Stop!". Patient is very confused and this PT could not reason with patient. SW and physician notified. Will attempt in a.m. 1 ref EUSEBIA XAVIER PT Apr 28, 2022 14:26
[2022-04-28 16:00] VITALS: BP 110/80
[2022-04-28 20:00] VITALS: BP 122/60
[2022-04-29 00:15] VITALS: BP 108/53
[2022-04-29 04:00] VITALS: BP 103/64
[2022-04-29] MEDS: D5 1/2 NS W/KCL 20 MEQ/L 1,000 ML IV SCH ×3 (05:20→21:14)
[2022-04-29 06:11] LABS: HEMOGLOBIN 11.1 g/dL (11.5-16.0)
[2022-04-29] MEDS: HYDROcodone/APAP 7.5 MG/325 MG (LORTAB, LORCET PLUS) TABLET PO PRN (06:29)
[2022-04-29] MEDS: LEVOTHYROXINE 88 MCG (LEVOTHORID) TAB PO SCH (06:29)
--- NOTE | 2022-04-29 06:58 | Progress Note ---
Standard Progress Note Progress Notes/Assess & Plan Date Seen by a Provider: Apr 29, 2022 Time Seen by a Provider: 06:57 Progress/Assessment & Plan no complaints Laboratory Tests Test 04/28/22 05:21 Range/Units Hemoglobin 12.0 # 11.5-16.0 g/dL Hematocrit 36 35-52 % Sodium Level 133 L 135-145 MMOL/L Potassium Level 3.7 3.6-5.0 MMOL/L Chloride Level 100 98-107 MMOL/L Carbon Dioxide Level 25 21-32 MMOL/L Anion Gap 8 5-14 MMOL/L Blood Urea Nitrogen 7 7-18 MG/DL Creatinine 0.69 0.60-1.30 MG/DL Estimat Glomerular Filtration Rate 85 BUN/Creatinine Ratio 10 Glucose Level 118 H 70-105 MG/DL Calcium Level 7.8 L 8.5-10.1 MG/DL Magnesium Level 1.4 L 1.6-2.4 MG/DL Vital Signs Date Time Temp Pulse Resp B/P (MAP) Pulse Ox O2 Delivery O2 Flow Rate FiO2 04/28/22 07:26 37.1 97 18 95/50 (65) 95 Nasal Cannula 3.00 04/28/22 07:13 99 04/28/22 04:43 102/55 (71) 04/28/22 03:05 37.4 100 20 100/53 (69) 95 Nasal Cannula 3.00 04/28/22 01:00 109 04/27/22 23:22 37.6 100 20 107/59 (75) 93 Nasal Cannula 2.00 04/27/22 23:07 102 16 100/53 (69) 94 Nasal Cannula 2.00 04/27/22 22:59 101 16 92/51 (65) 95 Nasal Cannula 2.00 04/27/22 22:42 94/48 (63) 04/27/22 20:52 95 Nasal Cannula 2.00 04/27/22 20:02 100 105/51 (69) 04/27/22 19:09 36.6 101 18 98/60 (73) 97 Nasal Cannula 2.00 04/27/22 19:00 100 04/27/22 15:24 36.5 100 20 113/51 (71) 97 Nasal Cannula 2.00 04/27/22 14:25 Nasal Cannula 3.00 04/27/22 14:25 36.9 20 108/59 (75) 94 Nasal Cannula 3.00 04/27/22 14:15 Nasal Cannula 3.00 04/27/22 14:10 20 105/52 (69) 94 OxyMask 4.00 04/27/22 14:00 OxyMask 4.00 04/27/22 14:00 20 100/49 (66) 94 OxyMask 4.00 04/27/22 13:50 20 113/44 (67) 92 OxyMask 6.00 04/27/22 13:45 OxyMask 4.00 04/27/22 13:40 20 121/93 (102) 94 OxyMask 6.00 04/27/22 13:30 20 126/70 (88) 96 OxyMask 6.00 04/27/22 13:30 OxyMask 6.00 04/27/22 13:26 37.0 20 118/85 (96) 96 OxyMask 6.00 04/27/22 13:26 OxyMask 6.00 04/27/22 08:09 Nasal Cannula 2.00 04/27/22 08:08 36.8 I & O 04/28/22 07:00 Intake Total 1300 ml Output Total 1600 ml Balance -300 ml L hip dressing intact no calf tenderness intact DF and PF of toes and ankle s/p L hip bipolar mobize as able SW for DC planning Final Diagnosis still confused to time Vital Signs Date Time Temp Pulse Resp B/P (MAP) Pulse Ox O2 Delivery O2 Flow Rate FiO2 04/29/22 04:00 36.2 87 16 103/64 (77) 97 Nasal Cannula 3.00 04/29/22 01:00 80 04/29/22 00:15 36.5 76 18 108/53 (71) 99 Nasal Cannula 3.00 04/28/22 20:57 Nasal Cannula 2.50 04/28/22 20:21 98 Nasal Cannula 3.00 04/28/22 20:00 36.7 96 20 122/60 (80) 98 Nasal Cannula 3.00 04/28/22 19:00 108 04/28/22 16:18 Nasal Cannula 2.50 04/28/22 16:00 36.5 86 19 110/80 (90) 100 Nasal Cannula 3.00 04/28/22 13:10 94 04/28/22 11:23 37.4 93 19 108/54 (72) 98 Nasal Cannula 2.50 04/28/22 08:00 95 Nasal Cannula 3.00 04/28/22 07:26 37.1 97 18 95/50 (65) 95 Nasal Cannula 3.00 04/28/22 07:13 99 I & O 04/29/22 07:00 Intake Total 475 ml Output Total 1175 ml Balance -700 ml Laboratory Tests Test 04/29/22 05:35 Range/Units Hemoglobin 11.1 L 11.5-16.0 g/dL Hematocrit 35 35-52 % L hip incision clean and dry no calf tenderness s/p L hip bipolar PT/OT will require placement MARIKA UNDERWOOD MD Apr 29, 2022 06:58
[2022-04-29 08:27] VITALS: BP 93/59
--- NOTE | 2022-04-29 08:51 | Progress Note - Cardiology ---
Cardiology SOAP Progress Note Objective: I&O/Vital Signs 05/01/22 05/02/22 05/02/22 05/02/22 23:37 01:00 04:47 07:06 Temp 36.2 36.4 36.0 Pulse 73 82 82 65 Resp 20 20 18 B/P (MAP) 112/64 (80) 133/59 (83) 110/53 (72) Pulse Ox 98 99 98 O2 Delivery Nasal Cannula Nasal Cannula O2 Flow Rate 1.00 1.00 1.00 05/02/22 07:15 Pulse 71 05/02/22 00:00 Intake Total 960 ml Output Total 350 ml Balance 610 ml Constitutional: well-developed, well-nourished, other (Oriented x 3, lethargic) Respiratory: No accessory muscle use, No respiratory distress; chest expansion is symmetric, chest is bilaterally symmetric, lungs clear to auscultation Cardiovascular: regular rate-rhythm; No JVD; S1 and S2, systolic murmur (3/6) Gastrointestional: No tender; soft, audible bowel sounds Extremities: no lower extremity edema bilateral Neurologic/Psychiatric: other (moves all extremities; did not attempt movement of left leg d/t fracture) Skin: No rash on exposed areas, No ulcerations on exposed areas Results/Procedures: Labs A/P: Assessment: S/P non-syncopal fall resulting in left hip fracture - s/p left hip repair on 04-27-22 - management per Dr. Marcelo H/O Bio-prosthetic Aortic valve replacement at [facility] - Echocardiogram of 04-27-22 showed LVEF 55-60%. Grade 1 diastolic dysfunction. Mitral valve calcification. 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 PASP 50-55 mmHg HTN - currently hypotensive Hypothyroidism AMS Plan: S/P non-syncopal fall with left hip fracture repair on 04-[address] Marcelo Hypotensive - stop current dose of Coreg and reduce dose with hold parameters Advise avoidance of hypotension Monitor lab Continue DVT prophylaxis GENESIS HYMAN Apr 29, 2022 08:51
[2022-04-29] MEDS: SENNOSIDES 8.6 MG (SENOKOT) TAB PO SCH ×2 (08:57→20:50)
[2022-04-29] MEDS: ENOXAPARIN 40 MG/0.4 ML (LOVENOX) SYR SC SCH (08:58)
--- NOTE | 2022-04-29 09:09 | Progress Note ---
ADENIKE WILLSON 04/29/22 0909: Subjective Date Seen by a Provider: Apr 29, 2022 Time Seen by a Provider: 08:35 Subjective/Events-last exam Ms. Quinones is an 87 year old female with a PMHx of valvular heart disease, HTN, HLD, hypothyroidism, GERD, and previous R hip fracture who presented to the [facility] ED after sustaining a fall to the left hip. Patient reports feeling well this morning. Patient is sitting up in bed feeding herself breakfast. Patient states her L hip/leg pain continues to improve and is well managed with Lortab 7.5mg. Patient states she is tolerating PO food and drink. Urinary catheter is still in place. Patient denies passing flatus or having BM. Discussed PT therapy and encouraged the patient to partake in therapy today. Patient verbalized she is unsure if she will participate in therapy today. Patient is alert this morning and is aware of where she is and why. Review of Systems General: No Fatigue, No Malaise HEENT: No Head Aches Pulmonary: No Dyspnea Cardiovascular: No: Chest Pain Gastrointestinal: No: Nausea, Vomiting, Abdominal Pain Genitourinary: Other (urinary catheter in place) Musculoskeletal: leg pain (L hip and leg pain, improved from yesterday) Objective Exam Last Set of Vital Signs Vital Signs Date Time Temp Pulse Resp B/P (MAP) Pulse Ox O2 Delivery O2 Flow Rate FiO2 04/29/22 08:27 36.6 92 19 93/59 (70) 93 Room Air 04/29/22 04:00 3.00 Capillary Refill : Less Than 3 Seconds I&O Intake and Output 04/29/22 00:00 Intake Total 625 ml Output Total 725 ml Balance -100 ml Intake Oral 625 ml Output Urine Total 725 ml General: Alert (Patient appears to be alert and oriented this morning. Patient verbalizes understanding of where she is and why she is in the hospital), No Acute Distress HEENT: Atraumatic Lungs: Clear to Auscultation, Normal Air Movement Heart: Regular Rate, Other (3/6 systolic murmur) Abdomen: Normal Bowel Sounds, Soft Extremities: No Edema Skin: Other (L hip dressing clean, dry, and intact) Neuro: Normal Speech Psych/Mental Status: Mental Status NL, Mood NL Results Lab Laboratory Tests 04/29/22 05:35: Hemoglobin 11.1L, Hematocrit 35 Assessment/Plan Assessment/Plan Assess & Plan/Chief Complaint 1. Left femoral neck fracture -Surgical management per Orthopedics -Pain control PRN Lortab 7.5mg Q4H -DVT prophylaxis with Lovenox and SCDs -Incentive spirometry post-operatively -PT/OT -> continue to encourage while managing pain to reach patient goal of returning home -Regular diet post-operatively as tolerated -Zofran 4mg Q4H PRN for nausea perioperatively -Stool softener regimen with docusate 100mg PO BID post-operatively -Remove urinary catheter when patient is able to safely transfer to bathroom 2. Hypokalemia with K of 3.0 -> Resolved to 3.7 -Repeat CMP in AM -Supplement with KCl 40 meq IV or PO postoperatively 3. HTN -> hypotension. Patient has developed hypotension likely secondary to post-operative volume status change/anesthesia. Discontinue carvedilol 12.5mg. Hold carvedilol 3.125mg at this time ----X-d-y-u-m-e- -h-o-m-e- -z-g-o-v-y-e-t-i-o-n-s-,- -J-m-y-h-o-q-i-l-o-l- -1-2-.-5-m-g- -P-O- -d-a-i-l-y- -Monitor BP 4. Hypothyroidism -Resume levothyroxine 100 mcg PO daily 5. GERD -Resume omeprazole 40mg PO daily 6. Hyponatremia of 133 (139 on 04/27) -Continue to monitor with AM CMP. Likely the result of post-operative volume status changes. 7. Pulmonary hypertension with pulmonary artery pressure of 50-55mmHg -Out-patient management recommended -Continue managing BP while in-patient Clinical Quality Measures Admission Status Admission Dx 1. Left femoral neck fracture -Surgical management per Orthopedics -Pain control PRN morphine 4mg Q2H IV -DVT prophylaxis with Lovenox and SCDs -Incentive spirometry post-operatively -PT/OT -Regular diet post-operatively as tolerated -Zofran 4mg Q4H PRN for nausea perioperatively -Stool softener regimen with docusate 100mg PO BID post-operatively 2. Hypokalemia with K of 3.0 -Repeat CMP in AM -Supplement with KCl 40 meq IV or PO postoperatively 3. HTN -Resume home medications, Carvedilol 12.5mg PO daily -Monitor BP 4. Hypothyroidism -Resume levothyroxine 100 mcg PO daily 5. GERD -Resume omeprazole 40mg PO daily ELENA LUJAN MD 04/29/22 1420: Assessment/Plan Assessment/Plan Assess & Plan/Chief Complaint Patient reports doing very well. No complaints. Pain controlled. Was already up working with PT and walked 40 ft. Discussed discharge options and she is adamant that she will not go to a nursing facility. Informed her we will continue to work on PT and assess a discharge plan that is safe on Monday but did discussed IRF as hopefully a good option. Supervisory-Addendum Brief Verification & Attestation Participated in pt care: history, MDM, physical Personally performed: exam, history, MDM, supervision of care Care discussed with: Medical Student Procedures: n/a Results interpretation: Verified all documentation Verification and Attestation of Medical Student E/M Service A medical student performed and documented this service in my presence. I reviewed and verified all information documented by the medical student and made modifications to such information, when appropriate. I personally performed the physical exam and medical decision making. Elena Lujan, Apr 29, 2022,14:16 ADENIKE WILLSON Apr 29, 2022 09:09 ELENA LUJAN MD Apr 29, 2022 14:20
--- NOTE | 2022-04-29 09:45 | Physical Therapy Daily Note ---
PT Daily Note-Current Subjective Patient remains confused but more alert on this date. Pain Section J - Health Conditions 1. Rarely or not at all 2. Occasionally 3. Frequently 4. Almost constantly 8. Unable to answer Pain Effect on Sleep: 2 Pain Interference with Therapy: 2 Pain Interference w/Day-to-Day: 2 Mental Status Patient Orientation: Confused Attachments: Oxygen, Mancuso Catheter, IV Transfers SCALE: Activities may be completed with or without assistive devices. 0-Daaqktgrzf-dgggnzl completes the activity by him/herself with no assistance from a helper. 5-Set-up or Clean-up Assistance-helper sets up or cleans up; patient completes activity. [place] assists only prior to or following the activity. 4-Supervision or Touching Assistance-helper provides verbal cues and/or touching/steadying and/or contact guard assistance as patient completes activity. Assistance may be provided throughout the activity or intermittently. 3-Partial/Moderate Assistance-helper does LESS THAN HALF the effort. [place] lifts, holds or supports trunk or limbs, but provides less than half the effort. 2-Substantial/Maximal Assistance-helper does MORE THAN HALF the effort. [place] lifts or holds trunk or limbs and provides more than half the effort. 3-Swalazyti-hfxepl does ALL the effort. Patient does none of the effort to complete the activity. Or, the assistance of 2 or more helpers is required for the patient to complete the activity. If activity was not attempted, code reason: 7-Patient Refused. 9-Not Applicable-not attempted and the patient did not perform the activity before the current illness, exacerbation or injury. 10-Not Attempted due to Environmental Limitations-(lack of equipment, weather restraints, etc.). 88-Not Attempted due to Medical Conditions or Safety Concerns. Lying to Sitting/Side of Bed(Q: 2 Sit to Stand (QC): 2 Chair/Srw-lv-Fqooi Xfer(QC): 2 Weight Bearing Left Lower Extremity: Left Weight Bearing/Tolerated Gait Training Distance: 40' Walk 10 feet (QC): 2 Walk 50 ft with 2 Turns(QC): 88 Walk 150 ft (QC): 88 Gait Assistive Device: FWW max assist with continuous VC's for body placement in FWW Exercises Seated Therapy Exercises: Long arc quads Seated Reps: 15 Assessment Patient progressing slowly with treatment plan. Patient able to ambulate on this date and is up in recliner with chair alarm activated. PT to increase activity as tolerated by patient. PT C D Still Operator Goals C D Still Operator Goals PT C D Still Operator Goals Time Frame: May 04, 2022 Roll Left & Right (QC): 4 Sit to Lying (QC): 4 Lying-Sitting on Side/Bed(QC): 4 Sit to Stand (QC): 4 Chair/Rpt-bk-Hqhlr Xfer(QC): 4 Walk 10 feet (QC): 4 Walk 50ft with 2 Turns (QC): 4 PT Plan Treatment/Plan Treatment Plan: Continue Plan of Care Treatment Plan: Bed Mobility, Education, Functional Activity Ciera, Functional Strength, Gait, Safety, Therapeutic Exercise, Transfers Treatment Duration: May 04, 2022 Frequency: 11 times per week Estimated Hrs Per Day: .25 hour per day Patient and/or Family Agrees t: Yes Time Time In: 909 Time Out: 922 DATE: Apr 29, 2022 Total Billed Treatment Time: 13 Total Billed Treatment 1 visit GT 13 min EUSEBIA XAVIER PT Apr 29, 2022 09:45
--- NOTE | 2022-04-29 11:20 | Occupational Ther Daily Note ---
OT Current Status-Daily Note Subjective Pt more alert today though remains confused. Mental Status/Objective Patient Orientation: Person, Confused Attachments: Mancuso Catheter, IV ADL-Treatment Therapy Code Descriptions/Definitions Functional [place] Measure: 0=Not Assessed/NA 4=Minimal Assistance 1=Total Assistance 5=Supervision or Setup 2=Maximal Assistance 6=Modified [place] 3=Moderate Assistance 7=Complete IndependenceSCALE: Activities may be completed with or without assistive devices. 4-Krlzhmjxik-dailgvn completes the activity by him/herself with no assistance from a helper. 5-Set-up or Clean-up Assistance-helper sets up or cleans up; patient completes activity. [place] assists only prior to or following the activity. 4-Supervision or Touching Assistance-helper provides verbal cues and/or to uching/steadying and/or contact guard assistance as patient completes activity. Assistance may be provided throughout the activity or intermittently. 3-Partial/Moderate Assistance-helper does LESS THAN HALF the effort. [place] lifts, holds or supports trunk or limbs, but provides less than half the effort. 2-Substantial/Maximal Assistance-helper does MORE THAN HALF the effort. [place] lifts or holds trunk or limbs and provides more than half the effort. 5-Ybilhykfl-fnkmtp does ALL the effort. Patient does none of the effort to complete the activity. Or, the assistance of 2 or more helpers is required for the patient to complete the activity. If activity was not attempted, code reason: 7-Patient Refused. 9-Not Applicable-not attempted and the patient did not perform the activity before the current illness, exacerbation or injury. 10-Not Attempted due to Environmental Limitations-(lack of equipment, weather restraints, etc.). 88-Not Attempted due to Medical Conditions or Safety Concerns. Other Treatment Assist x2 for bed mobility. Ambulated around room using FWW 1 person assist while 2nd person assisting with IV pole and environment. At end of treatment, pt is sitting in recliner with call light/phone in reach. Chair alarm act ivated. OT [employer] Principal Goals [employer] Principal Goals Time Frame: May 13, 2022 Eating (QC): 6 Oral Hygiene (QC): 6 Toileting Hygiene (QC): 4 Shower/Bathe Self (QC): 4 Upper Body Dressing (QC): 5 Lower Body Dressing (QC): 4 On/Off Footwear (QC): 4 Additional Goals: 1-Demonstrate ADL Tasks, 2-Verbalize Understanding, 3- ImproveStrength/Ciera 1=Demonstrate adherence to instructed precautions during ADL tasks. 2=Patient will verbalize/demonstrate understanding of assistive devices/modifications for ADL. 3=Patient will improve strength/tolerance for activity to enable patient to perform ADL's. OT Education/Plan Problem List/Assessment Assessment: Decreased Activ Tolerance, Decreased Safety Aware, Impaired Cognition, Impaired Self-Care Skills Discharge Recommendations Plan/Recommendations: Continue POC Treatment Plan/Plan of Care Patient would benefit from OT for education, treatment and training to promote independence in ADL's, mobility, safety and/or upper extremity function for ADL's. Plan of Care: ADL Retraining, Functional Mobility, UE Funct Exercise/Act Treatment Duration: May 13, 2022 Frequency: 3 times per week (3-5 times per week) Estimated Hrs Per Day: .25 hour per day Agreement: Yes Rehab Potential: Fair Time Start Time: 09:10 Stop Time: 09:22 DATE: Apr 29, 2022 Total Time Billed (hr/min): 12 Billed Treatment Time 1 visit-FA 1 (12 min) PAM TOVAR Apr 29, 2022 11:20
[2022-04-29 11:46] VITALS: BP 119/60
--- NOTE | 2022-04-29 13:26 | Physical Therapy Daily Note ---
PT Daily Note-Current Subjective Patient agrees to PT. Pain Section J - Health Conditions 1. Rarely or not at all 2. Occasionally 3. Frequently 4. Almost constantly 8. Unable to answer Pain Effect on Sleep: 2 Pain Interference with Therapy: 2 Pain Interference w/Day-to-Day: 2 Mental Status Patient Orientation: Person Attachments: Mancuso Catheter, IV Transfers SCALE: Activities may be completed with or without assistive devices. 1-Dsgosofcjg-rblmsvg completes the activity by him/herself with no assistance from a helper. 5-Set-up or Clean-up Assistance-helper sets up or cleans up; patient completes activity. [place] assists only prior to or following the activity. 4-Supervision or Touching Assistance-helper provides verbal cues and/or touching/steadying and/or contact guard assistance as patient completes activity. Assistance may be provided throughout the activity or intermittently. 3-Partial/Moderate Assistance-helper does LESS THAN HALF the effort. [place] lifts, holds or supports trunk or limbs, but provides less than half the effort. 2-Substantial/Maximal Assistance-helper does MORE THAN HALF the effort. [place] lifts or holds trunk or limbs and provides more than half the effort. 2-Yblvezswt-etfdra does ALL the effort. Patient does none of the effort to complete the activity. Or, the assistance of 2 or more helpers is required for the patient to complete the activity. If activity was not attempted, code reason: 7-Patient Refused. 9-Not Applicable-not attempted and the patient did not perform the activity before the current illness, exacerbation or injury. 10-Not Attempted due to Environmental Limitations-(lack of equipment, weather restraints, etc.). 88-Not Attempted due to Medical Conditions or Safety Concerns. Sit to Stand (QC): 2 Weight Bearing Left Lower Extremity: Left Weight Bearing/Tolerated Gait Training Distance: 10' x 2 Walk 10 feet (QC): 2 Gait Assistive Device: FWW antalgic/right lean Exercises Seated Therapy Exercises: Ankle pumps, Long arc quads Seated Reps: 15 Assessment Patient remains up in recliner for lunch. Patient progressing with treatment. PT Web Database Developer Goals Jail Goals PT Jail Goals Time Frame: May 04, 2022 Roll Left & Right (QC): 4 Sit to Lying (QC): 4 Lying-Sitting on Side/Bed(QC): 4 Sit to Stand (QC): 4 Chair/Pkx-xs-Xdxdm Xfer(QC): 4 Walk 10 feet (QC): 4 Walk 50ft with 2 Turns (QC): 4 PT Plan Treatment/Plan Treatment Plan: Continue Plan of Care Treatment Plan: Bed Mobility, Education, Functional Activity Ciera, Functional Strength, Gait, Safety, Therapeutic Exercise, Transfers Treatment Duration: May 04, 2022 Frequency: 11 times per week Estimated Hrs Per Day: .25 hour per day Patient and/or Family Agrees t: Yes Time Time In: 1300 Time Out: 1318 DATE: Apr 29, 2022 Total Billed Treatment Time: 18 Total Billed Treatment 1 visit FA 18 min EUSEBIA XAVIER PT Apr 29, 2022 13:26
[2022-04-29] MEDS ORDERED: POTA-160 PO (14:00)
[2022-04-29] MEDS ORDERED: HYDR12.56 PO (14:00)
[2022-04-29 15:15] VITALS: BP 135/63
--- NOTE | 2022-04-29 17:25 | Progress Note - Cardiology ---
Cardiology SOAP Progress Note Subjective: No cp or palp or syncope or shortness of breath No n/v/d Objective: I&O/Vital Signs 04/29/22 04/29/22 04/29/22 04/29/22 07:00 08:00 08:27 11:46 Temp 36.6 36.4 Pulse 87 92 79 Resp 19 19 B/P (MAP) 93/59 (70) 119/60 (79) Pulse Ox 93 93 O2 Delivery Nasal Cannula Room Air Nasal Cannula O2 Flow Rate 3.00 2.50 04/29/22 04/29/22 04/29/22 13:00 14:10 15:15 Temp 36.2 Pulse 81 89 Resp 20 B/P (MAP) 135/63 (87) Pulse Ox 90 O2 Delivery Nasal Cannula Nasal Cannula O2 Flow Rate 2.50 2.50 2.50 04/29/22 00:00 Intake Total 425 ml Output Total 525 ml Balance -100 ml Constitutional: well-developed, well-nourished, other (Oriented x 3, lethargic) Respiratory: No accessory muscle use, No respiratory distress; chest expansion is symmetric, chest is bilaterally symmetric, lungs clear to auscultation Cardiovascular: regular rate-rhythm; No JVD; S1 and S2, systolic murmur (3/6) Gastrointestional: No tender; soft, audible bowel sounds Extremities: no lower extremity edema bilateral Neurologic/Psychiatric: other (moves all extremities; did not attempt movement of left leg d/t fracture) Skin: No rash on exposed areas, No ulcerations on exposed areas Results/Procedures: Labs Laboratory Tests 04/29/22 05:35: Hemoglobin 11.1L, Hematocrit 35 Laboratory Tests 04/28/22 05:21 04/29/22 05:35 A/P: Assessment: S/P non-syncopal fall resulting in left hip fracture - s/p left hip repair on 04-27-22 - management per Dr. Marcelo H/O Bio-prosthetic Aortic valve replacement at [facility] - Echocardiogram of 04-27-22 showed LVEF 55-60%. Grade 1 diastolic dysfunction. Mitral valve calcification. 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 PASP 50-55 mmHg HTN - currently hypotensive Hypothyroidism, treated with thyroid replacement therapy Plan: S/P non-syncopal fall with left hip fracture repair on 04-[address] Marcelo Hypotensive - stop current dose of Coreg and reduce dose with hold parameters Advise avoidance of hypotension Monitor lab Continue DVT prophylaxis GIANNA SCHAFER MD FACP [facility] Apr 29, 2022 17:25
[2022-04-29 19:20] VITALS: BP 134/60
[2022-04-30] VITALS (7 sets, daily range): BP systolic 110–151; BP diastolic 53–75
[2022-04-30] MEDS: D5 1/2 NS W/KCL 20 MEQ/L 1,000 ML IV SCH (02:46)
[2022-04-30] MEDS: LEVOTHYROXINE 88 MCG (LEVOTHORID) TAB PO SCH (05:02)
[2022-04-30 05:30] LABS: HEMOGLOBIN 10.9 g/dL (11.5-16.0)
[2022-04-30] MEDS: SENNOSIDES 8.6 MG (SENOKOT) TAB PO SCH ×2 (09:15→19:50)
[2022-04-30] MEDS: ENOXAPARIN 40 MG/0.4 ML (LOVENOX) SYR SC SCH (09:15)
--- NOTE | 2022-04-30 09:16 | Progress Note ---
Standard Progress Note Progress Notes/Assess & Plan Date Seen by a Provider: Apr 30, 2022 Time Seen by a Provider: 09:15 Progress/Assessment & Plan no complaints Laboratory Tests Test 04/28/22 05:21 Range/Units Hemoglobin 12.0 # 11.5-16.0 g/dL Hematocrit 36 35-52 % Sodium Level 133 L 135-145 MMOL/L Potassium Level 3.7 3.6-5.0 MMOL/L Chloride Level 100 98-107 MMOL/L Carbon Dioxide Level 25 21-32 MMOL/L Anion Gap 8 5-14 MMOL/L Blood Urea Nitrogen 7 7-18 MG/DL Creatinine 0.69 0.60-1.30 MG/DL Estimat Glomerular Filtration Rate 85 BUN/Creatinine Ratio 10 Glucose Level 118 H 70-105 MG/DL Calcium Level 7.8 L 8.5-10.1 MG/DL Magnesium Level 1.4 L 1.6-2.4 MG/DL Vital Signs Date Time Temp Pulse Resp B/P (MAP) Pulse Ox O2 Delivery O2 Flow Rate FiO2 04/28/22 07:26 37.1 97 18 95/50 (65) 95 Nasal Cannula 3.00 04/28/22 07:13 99 04/28/22 04:43 102/55 (71) 04/28/22 03:05 37.4 100 20 100/53 (69) 95 Nasal Cannula 3.00 04/28/22 01:00 109 04/27/22 23:22 37.6 100 20 107/59 (75) 93 Nasal Cannula 2.00 04/27/22 23:07 102 16 100/53 (69) 94 Nasal Cannula 2.00 04/27/22 22:59 101 16 92/51 (65) 95 Nasal Cannula 2.00 04/27/22 22:42 94/48 (63) 04/27/22 20:52 95 Nasal Cannula 2.00 04/27/22 20:02 100 105/51 (69) 04/27/22 19:09 36.6 101 18 98/60 (73) 97 Nasal Cannula 2.00 04/27/22 19:00 100 04/27/22 15:24 36.5 100 20 113/51 (71) 97 Nasal Cannula 2.00 04/27/22 14:25 Nasal Cannula 3.00 04/27/22 14:25 36.9 20 108/59 (75) 94 Nasal Cannula 3.00 04/27/22 14:15 Nasal Cannula 3.00 04/27/22 14:10 20 105/52 (69) 94 OxyMask 4.00 04/27/22 14:00 OxyMask 4.00 04/27/22 14:00 20 100/49 (66) 94 OxyMask 4.00 04/27/22 13:50 20 113/44 (67) 92 OxyMask 6.00 04/27/22 13:45 OxyMask 4.00 04/27/22 13:40 20 121/93 (102) 94 OxyMask 6.00 04/27/22 13:30 20 126/70 (88) 96 OxyMask 6.00 04/27/22 13:30 OxyMask 6.00 04/27/22 13:26 37.0 20 118/85 (96) 96 OxyMask 6.00 04/27/22 13:26 OxyMask 6.00 04/27/22 08:09 Nasal Cannula 2.00 04/27/22 08:08 36.8 I & O 04/28/22 07:00 Intake Total 1300 ml Output Total 1600 ml Balance -300 ml L hip dressing intact no calf tenderness intact DF and PF of toes and ankle s/p L hip bipolar mobize as able SW for DC planning Final Diagnosis no complaints Vital Signs Date Time Temp Pulse Resp B/P (MAP) Pulse Ox O2 Delivery O2 Flow Rate FiO2 04/30/22 07:08 36.4 85 20 151/65 (93) 100 Nasal Cannula 2.50 04/30/22 07:00 81 04/30/22 03:42 36.5 65 16 124/73 (90) 94 Nasal Cannula 2.00 04/30/22 01:00 100 04/30/22 00:00 37.7 97 16 132/56 (81) 96 Room Air 04/29/22 20:00 93 Nasal Cannula 3.00 04/29/22 19:20 36.6 88 18 134/60 (84) 91 Nasal Cannula 2.50 2.50 04/29/22 19:00 124 04/29/22 15:15 36.2 89 20 135/63 (87) 90 Nasal Cannula 2.50 2.50 04/29/22 14:10 Nasal Cannula 2.50 04/29/22 13:00 81 04/29/22 11:46 36.4 79 19 119/60 (79) Nasal Cannula 2.50 I & O 04/30/22 07:00 Intake Total 1260 ml Output Total 1750 ml Balance -490 ml Laboratory Tests Test 04/30/22 04:55 Range/Units Hemoglobin 10.9 L 11.5-16.0 g/dL Hematocrit 33 L 35-52 % on the commode s/p L bipolar mobilize await placement MARIKA UNDERWOOD MD Apr 30, 2022 09:16
--- NOTE | 2022-04-30 09:31 | Progress Note - Hospitalist ---
Subjective HPI/CC On Admission Date Seen by Provider: Apr 30, 2022 Subjective/Events-last exam Pt reports being miserable. When asked about pain she denies any. She states she just wants out of bed. No other complaints. Objective Exam Vital Signs Vital Signs Date Time Temp Pulse Resp B/P (MAP) Pulse Ox O2 Delivery O2 Flow Rate FiO2 04/30/22 07:08 36.4 85 20 151/65 (93) 100 Nasal Cannula 2.50 Capillary Refill : Less Than 3 Seconds General Appearance: No Apparent Distress Respiratory: Lungs Clear, No Respiratory Distress Cardiovascular: Regular Rate, Rhythm, Systolic Murmur Neurologic/Psychiatric: Alert, Oriented x3 Results/Procedures Lab Laboratory Tests 04/30/22 04:55 Patient resulted labs reviewed. Assessment/Plan Assessment and Plan Assess & Plan/Chief Complaint Left femoral neck fracture -Surgical management per Orthopedics -Continue pain and bowel regimen No BM yet -IS -PT/OT May need IRF vs SNF but patient reluctant to accept either of these SW consulted, appreciate assistance Hypokalemia - Resolved HTN -BP well controlled, trend Hypothyroidism -Continue levothyroxine DVT ppx; Lovenox Clinical Quality Measures Admission Status Admission Dx Patient is being admitted for operative repair of hip fracture. She suffered a fall at home and was found to have an acute hip fracture. She is to be taken to surgery today following perioperative risk assessment. Cardiology has been consulted given her history of aortic valve replacement. Given her high level of function prior to this injury benefits seem to outweigh the risk of surgery though given her age and cardiac issues she is at intermediate risk for cardiac event perioperatively. We will resume her home medications as appropriate when she is able to take oral medications. We will start physical therapy and Occupational Therapy also postoperatively. DANDY RITTER MD Apr 30, 2022 09:30
--- NOTE | 2022-04-30 13:48 | Physical Therapy Daily Note ---
PT Daily Note-Current Subjective Pt sitting in recliner asleep upon arrival. Pt agrees to PT for Seated EX. Pain Location: No Pain Reported Section J - Health Conditions 1. Rarely or not at all 2. Occasionally 3. Frequently 4. Almost constantly 8. Unable to answer Pain Effect on Sleep: 2 Pain Interference with Therapy: 2 Pain Interference w/Day-to-Day: 2 Mental Status Patient Orientation: Person, Place Transfers SCALE: Activities may be completed with or without assistive devices. 9-Czmrffwhxf-cpcqoip completes the activity by him/herself with no assistance from a helper. 5-Set-up or Clean-up Assistance-helper sets up or cleans up; patient completes activity. [place] assists only prior to or following the activity. 4-Supervision or Touching Assistance-helper provides verbal cues and/or touchi ng/steadying and/or contact guard assistance as patient completes activity. Assistance may be provided throughout the activity or intermittently. 3-Partial/Moderate Assistance-helper does LESS THAN HALF the effort. [place] lifts, holds or supports trunk or limbs, but provides less than half the effort. 2-Substantial/Maximal Assistance-helper does MORE THAN HALF the effort. [place] lifts or holds trunk or limbs and provides more than half the effort. 4-Enhoeqbek-ejcicv does ALL the effort. Patient does none of the effort to complete the activity. Or, the assistance of 2 or more helpers is required for the patient to complete the activity. If activity was not attempted, code reason: 7-Patient Refused. 9-Not Applicable-not attempted and the patient did not perform the activity before the current illness, exacerbation or injury. 10-Not Attempted due to Environmental Limitations-(lack of equipment, weather restraints, etc.). 88-Not Attempted due to Medical Conditions or Safety Concerns. Weight Bearing Left Lower Extremity: Left Weight Bearing/Tolerated Exercises Seated Therapy Exercises: Ankle pumps, Long arc quads, Hip flexion, Hip abd/add, Glut set Seated Reps: 10 Treatments Pt completes Seated Ex at recliner. Pt resting at end of tx with all needs met, call light in hand. Assessment Current Status: Fair Progress Pt very drowsy and difficult to keep awake during Ex. PT Senior Care Goals [employer] Goals PT Senior Care Goals Time Frame: May 04, 2022 Roll Left & Right (QC): 4 Sit to Lying (QC): 4 Lying-Sitting on Side/Bed(QC): 4 Sit to Stand (QC): 4 Chair/Pkv-mx-Hifck Xfer(QC): 4 Walk 10 feet (QC): 4 Walk 50ft with 2 Turns (QC): 4 PT Plan Problem List Problem List: Activity Tolerance, Functional Strength Treatment/Plan Treatment Plan: Continue Plan of Care Treatment Plan: Bed Mobility, Education, Functional Activity Ciera, Functional Strength, Gait, Safety, Therapeutic Exercise, Transfers Treatment Duration: May 04, 2022 Frequency: 11 times per week Estimated Hrs Per Day: .25 hour per day Patient and/or Family Agrees t: Yes Time Time In: 1322 Time Out: 1332 DATE: Apr 30, 2022 Total Billed Treatment Time: 10 Total Billed Treatment 1, EX (10m) LEONOR NEVILLE PTA Apr 30, 2022 13:48
--- NOTE | 2022-04-30 16:13 | Progress Note - Cardiology ---
Cardiology SOAP Progress Note Subjective: No cp or palp or syncope No shortness of breath at rest No n/v/d No focal weakness Gen weakness and malaise present Objective: I&O/Vital Signs 04/30/22 04/30/22 04/30/22 04/30/22 07:00 07:08 08:00 11:03 Temp 36.4 37.1 Pulse 81 85 81 Resp 20 20 B/P (MAP) 151/65 (93) 122/75 (91) Pulse Ox 100 100 O2 Delivery Nasal Cannula Nasal Cannula Nasal Cannula O2 Flow Rate 2.50 3.00 2.50 04/30/22 04/30/22 13:00 15:13 Temp 36.4 Pulse 83 81 Resp 18 B/P (MAP) 110/53 (72) Pulse Ox 97 O2 Delivery Nasal Cannula O2 Flow Rate 2.50 2.50 04/30/22 00:00 Intake Total 1010 ml Output Total 1050 ml Balance -40 ml Constitutional: well-developed, well-nourished, other (Oriented x 3, lethargic) Respiratory: No accessory muscle use, No respiratory distress; chest expansion is symmetric, chest is bilaterally symmetric, lungs clear to auscultation Cardiovascular: regular rate-rhythm; No JVD; S1 and S2, systolic murmur (3/6) Gastrointestional: No tender; soft, audible bowel sounds Extremities: no lower extremity edema bilateral Neurologic/Psychiatric: other (moves all extremities; did not attempt movement of left leg d/t fracture) Skin: No rash on exposed areas, No ulcerations on exposed areas Results/Procedures: Labs Laboratory Tests 04/30/22 04:55: Hemoglobin 10.9L, Hematocrit 33L Laboratory Tests 04/29/22 05:35 04/30/22 04:55 A/P: Assessment: S/P non-syncopal fall resulting in left hip fracture - s/p left hip repair on 04-27-22 - management per Dr. Marcelo H/O Bio-prosthetic Aortic valve replacement at [facility] - Echocardiogram of 04-27-22 showed LVEF 55-60%. Grade 1 diastolic dysfunction. Mitral valve calcification. 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 PASP 50-55 mmHg HTN - but has been relatively hypotensive during the hospitalization, necessitating reduction in bp meds Hypothyroidism, treated with thyroid replacement therapy Plan: S/P non-syncopal fall with left hip fracture repair on 04-[address] Marcelo Hypotension improved after reducing dose of carvedilol (hold parameters applied) Monitor lab Continue DVT prophylaxis GIANNA SCHAFER MD FACP [facility] CCDS Apr 30, 2022 16:13
[2022-04-30] MEDS: HYDROcodone/APAP 7.5 MG/325 MG (LORTAB, LORCET PLUS) TABLET PO PRN (20:14)
[2022-05-01 03:50] VITALS: BP 126/58
[2022-05-01] MEDS: HYDROcodone/APAP 7.5 MG/325 MG (LORTAB, LORCET PLUS) TABLET PO PRN ×2 (05:47→23:43)
[2022-05-01] MEDS: LEVOTHYROXINE 88 MCG (LEVOTHORID) TAB PO SCH (05:47)
[2022-05-01 05:50] LABS: HEMOGLOBIN 10.5 g/dL (11.5-16.0)
[2022-05-01 06:07] LABS: POTASSIUM 3.7 MMOL/L (3.6-5.0)
[2022-05-01 06:08] LABS: CALCIUM 8.1 MG/DL (8.5-10.1)
[2022-05-01 06:12] LABS: CREATININE SERUM 0.53 MG/DL (0.60-1.30)
--- NOTE | 2022-05-01 06:30 | Progress Note ---
Standard Progress Note Progress Notes/Assess & Plan Date Seen by a Provider: May 01, 2022 Time Seen by a Provider: 06:17 Progress/Assessment & Plan no complaints Laboratory Tests Test 04/28/22 05:21 Range/Units Hemoglobin 12.0 # 11.5-16.0 g/dL Hematocrit 36 35-52 % Sodium Level 133 L 135-145 MMOL/L Potassium Level 3.7 3.6-5.0 MMOL/L Chloride Level 100 98-107 MMOL/L Carbon Dioxide Level 25 21-32 MMOL/L Anion Gap 8 5-14 MMOL/L Blood Urea Nitrogen 7 7-18 MG/DL Creatinine 0.69 0.60-1.30 MG/DL Estimat Glomerular Filtration Rate 85 BUN/Creatinine Ratio 10 Glucose Level 118 H 70-105 MG/DL Calcium Level 7.8 L 8.5-10.1 MG/DL Magnesium Level 1.4 L 1.6-2.4 MG/DL Vital Signs Date Time Temp Pulse Resp B/P (MAP) Pulse Ox O2 Delivery O2 Flow Rate FiO2 04/28/22 07:26 37.1 97 18 95/50 (65) 95 Nasal Cannula 3.00 04/28/22 07:13 99 04/28/22 04:43 102/55 (71) 04/28/22 03:05 37.4 100 20 100/53 (69) 95 Nasal Cannula 3.00 04/28/22 01:00 109 04/27/22 23:22 37.6 100 20 107/59 (75) 93 Nasal Cannula 2.00 04/27/22 23:07 102 16 100/53 (69) 94 Nasal Cannula 2.00 04/27/22 22:59 101 16 92/51 (65) 95 Nasal Cannula 2.00 04/27/22 22:42 94/48 (63) 04/27/22 20:52 95 Nasal Cannula 2.00 04/27/22 20:02 100 105/51 (69) 04/27/22 19:09 36.6 101 18 98/60 (73) 97 Nasal Cannula 2.00 04/27/22 19:00 100 04/27/22 15:24 36.5 100 20 113/51 (71) 97 Nasal Cannula 2.00 04/27/22 14:25 Nasal Cannula 3.00 04/27/22 14:25 36.9 20 108/59 (75) 94 Nasal Cannula 3.00 04/27/22 14:15 Nasal Cannula 3.00 04/27/22 14:10 20 105/52 (69) 94 OxyMask 4.00 04/27/22 14:00 OxyMask 4.00 04/27/22 14:00 20 100/49 (66) 94 OxyMask 4.00 04/27/22 13:50 20 113/44 (67) 92 OxyMask 6.00 04/27/22 13:45 OxyMask 4.00 04/27/22 13:40 20 121/93 (102) 94 OxyMask 6.00 04/27/22 13:30 20 126/70 (88) 96 OxyMask 6.00 04/27/22 13:30 OxyMask 6.00 04/27/22 13:26 37.0 20 118/85 (96) 96 OxyMask 6.00 04/27/22 13:26 OxyMask 6.00 04/27/22 08:09 Nasal Cannula 2.00 04/27/22 08:08 36.8 I & O 04/28/22 07:00 Intake Total 1300 ml Output Total 1600 ml Balance -300 ml L hip dressing intact no calf tenderness intact DF and PF of toes and ankle s/p L hip bipolar mobize as able SW for DC planning Final Diagnosis no complaints Vital Signs Date Time Temp Pulse Resp B/P (MAP) Pulse Ox O2 Delivery O2 Flow Rate FiO2 05/01/22 03:50 36.1 71 20 126/58 (80) 100 Nasal Cannula 2.00 05/01/22 01:00 63 04/30/22 23:30 36.0 73 20 114/54 (74) 100 Nasal Cannula 2.00 04/30/22 19:55 97 Nasal Cannula 2.50 04/30/22 19:19 36.8 81 20 122/55 (77) 97 Nasal Cannula 2.50 2.50 04/30/22 19:00 81 04/30/22 16:46 Nasal Cannula 2.50 04/30/22 15:13 36.4 81 18 110/53 (72) 97 Nasal Cannula 2.50 2.50 04/30/22 13:00 83 04/30/22 11:03 37.1 81 20 122/75 (91) 100 Nasal Cannula 2.50 04/30/22 08:00 Nasal Cannula 3.00 04/30/22 07:08 36.4 85 20 151/65 (93) 100 Nasal Cannula 2.50 04/30/22 07:00 81 I & O 05/01/22 07:00 Intake Total 1830 ml Output Total 1825 ml Balance 5 ml Laboratory Tests Test 05/01/22 05:00 Range/Units Hemoglobin 10.5 L 11.5-16.0 g/dL Hematocrit 33 L 35-52 % Sodium Level 135 135-145 MMOL/L Potassium Level 3.7 3.6-5.0 MMOL/L Chloride Level 103 98-107 MMOL/L Carbon Dioxide Level 25 21-32 MMOL/L Anion Gap 7 5-14 MMOL/L Blood Urea Nitrogen 10 7-18 MG/DL Creatinine 0.53 L 0.60-1.30 MG/DL Estimat Glomerular Filtration Rate 91 BUN/Creatinine Ratio 19 Glucose Level 72 70-105 MG/DL Calcium Level 8.1 L 8.5-10.1 MG/DL L hip incision clean and dry no calf tenderness s/p L hip bipolar await placement MARIKA UNDERWOOD MD May 01, 2022 06:30
[2022-05-01] MEDS: ENOXAPARIN 40 MG/0.4 ML (LOVENOX) SYR SC SCH (07:41)
[2022-05-01] MEDS: SENNOSIDES 8.6 MG (SENOKOT) TAB PO SCH ×2 (07:42→19:58)
[2022-05-01 07:45] VITALS: BP 127/58
[2022-05-01 11:39] VITALS: BP 108/65
--- NOTE | 2022-05-01 14:12 | Progress Note - Cardiology ---
Cardiology SOAP Progress Note Subjective: Gen malaise and weakness present No focal weakness No n/v/d No cp No syncope or palp No shortness of breath at rest Objective: I&O/Vital Signs 05/01/22 05/01/22 05/01/22 05/01/22 03:50 07:00 07:45 08:00 Temp 36.1 36.3 Pulse 71 67 72 Resp 20 20 B/P (MAP) 126/58 (80) 127/58 (81) Pulse Ox 100 97 O2 Delivery Nasal Cannula Nasal Cannula Nasal Cannula O2 Flow Rate 2.00 1.00 3.00 05/01/22 05/01/22 11:39 12:43 Temp 36.8 Pulse 67 85 Resp 20 B/P (MAP) 108/65 (79) Pulse Ox 99 O2 Delivery Nasal Cannula O2 Flow Rate 1.00 05/01/22 00:00 Intake Total 1130 ml Output Total 1325 ml Balance -195 ml Constitutional: well-developed, well-nourished, other (Oriented x 3, lethargic) Respiratory: No accessory muscle use, No respiratory distress; chest expansion is symmetric, chest is bilaterally symmetric, lungs clear to auscultation Cardiovascular: regular rate-rhythm; No JVD; S1 and S2, systolic murmur (3/6) Gastrointestional: No tender; soft, audible bowel sounds Extremities: no lower extremity edema bilateral Neurologic/Psychiatric: other (moves all extremities; did not attempt movement of left leg d/t fracture) Skin: No rash on exposed areas, No ulcerations on exposed areas Results/Procedures: Labs Laboratory Tests 05/01/22 05:00: Hemoglobin 10.5L, Hematocrit 33L, Sodium Level 135, Potassium Level 3.7, Chloride Level 103, Carbon Dioxide Level 25, Anion Gap 7, Blood Urea Nitrogen 10, Creatinine 0.53L, Estimat Glomerular Filtration Rate 91, BUN/Creatinine Ratio 19, Glucose Level 72, Calcium Level 8.1L Laboratory Tests 04/30/22 04:55 05/01/22 05:00 A/P: Assessment: S/P non-syncopal fall resulting in left hip fracture - s/p left hip repair on 04-27-22 - management per Dr. Marcelo H/O Bio-prosthetic Aortic valve replacement at [facility] - Echocardiogram of 12-14-22 showed LVEF 55-60%. Grade 1 diastolic dysfunction. Mitral valve calcification. 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 PASP 50-55 mmHg HTN - but has been relatively hypotensive during the hospitalization, necessitating reduction in bp meds; currently normotensive Hypothyroidism, treated with thyroid replacement therapy Plan: Hypotension improved after reducing dose of carvedilol (hold parameters applied) Monitor labs Continue DVT prophylaxis GIANNA SCHAFER MD FACP [facility] CCDS May 01, 2022 14:11
--- NOTE | 2022-05-01 14:51 | Progress Note - Hospitalist ---
Subjective HPI/CC On Admission Date Seen by Provider: May 01, 2022 Subjective/Events-last exam Pt reports doing ok. No complaints. Pain controlled. Offered help out of bed but she does not want ot get out of bed today. Discussed her goals of going home and how OOB acitivyt will be require there. She remains insistent on going home and states she'll work with PT tomrrow. Objective Exam Vital Signs Vital Signs Date Time Temp Pulse Resp B/P (MAP) Pulse Ox O2 Delivery O2 Flow Rate FiO2 05/01/22 16:19 Nasal Cannula 1.00 05/01/22 15:04 36.2 84 18 118/58 (78) 96 Capillary Refill : Less Than 3 Seconds General Appearance: No Apparent Distress, Chronically ill Respiratory: Lungs Clear Cardiovascular: Regular Rate, Rhythm, Systolic Murmur Neurologic/Psychiatric: Alert, Oriented x3 Results/Procedures Lab Laboratory Tests 05/01/22 05:00 Patient resulted labs reviewed. Assessment/Plan Assessment and Plan Assess & Plan/Chief Complaint Left femoral neck fracture -Surgical management per Orthopedics -Continue pain and bowel regimen BM x2 now -IS -PT/OT May need IRF vs SNF but patient reluctant to accept either of these SW consulted, appreciate assistance Hypokalemia - Resolved HTN aortic valve replaced -BP well controlled, trend cardiology following Hypothyroidism -Continue levothyroxine DVT ppx; Lovenox Clinical Quality Measures Admission Status Admission Dx Patient is being admitted for operative repair of hip fracture. She suffered a fall at home and was found to have an acute hip fracture. She is to be taken to surgery today following perioperative risk assessment. Cardiology has been consulted given her history of aortic valve replacement. Given her high level of function prior to this injury benefits seem to outweigh the risk of surgery though given her age and cardiac issues she is at intermediate risk for cardiac event perioperatively. We will resume her home medications as appropriate when she is able to take oral medications. We will start physical therapy and Occupational Therapy also postoperatively. DANDY RITTER MD May 01, 2022 14:51
[2022-05-01 15:04] VITALS: BP 118/58
[2022-05-01 19:13] VITALS: BP 121/59
[2022-05-01 23:37] VITALS: BP 112/64
[2022-05-02 04:47] VITALS: BP 133/59
[2022-05-02] MEDS: LEVOTHYROXINE 88 MCG (LEVOTHORID) TAB PO SCH (05:04)
[2022-05-02] MEDS: HYDROcodone/APAP 7.5 MG/325 MG (LORTAB, LORCET PLUS) TABLET PO PRN ×3 (05:04→20:42)
[2022-05-02 07:06] VITALS: BP 110/53
--- NOTE | 2022-05-02 08:22 | Progress Note ---
Standard Progress Note Progress Notes/Assess & Plan Date Seen by a Provider: May 02, 2022 Time Seen by a Provider: 08:21 Progress/Assessment & Plan no complaints Laboratory Tests Test 04/28/22 05:21 Range/Units Hemoglobin 12.0 # 11.5-16.0 g/dL Hematocrit 36 35-52 % Sodium Level 133 L 135-145 MMOL/L Potassium Level 3.7 3.6-5.0 MMOL/L Chloride Level 100 98-107 MMOL/L Carbon Dioxide Level 25 21-32 MMOL/L Anion Gap 8 5-14 MMOL/L Blood Urea Nitrogen 7 7-18 MG/DL Creatinine 0.69 0.60-1.30 MG/DL Estimat Glomerular Filtration Rate 85 BUN/Creatinine Ratio 10 Glucose Level 118 H 70-105 MG/DL Calcium Level 7.8 L 8.5-10.1 MG/DL Magnesium Level 1.4 L 1.6-2.4 MG/DL Vital Signs Date Time Temp Pulse Resp B/P (MAP) Pulse Ox O2 Delivery O2 Flow Rate FiO2 04/28/22 07:26 37.1 97 18 95/50 (65) 95 Nasal Cannula 3.00 04/28/22 07:13 99 04/28/22 04:43 102/55 (71) 04/28/22 03:05 37.4 100 20 100/53 (69) 95 Nasal Cannula 3.00 04/28/22 01:00 109 04/27/22 23:22 37.6 100 20 107/59 (75) 93 Nasal Cannula 2.00 04/27/22 23:07 102 16 100/53 (69) 94 Nasal Cannula 2.00 04/27/22 22:59 101 16 92/51 (65) 95 Nasal Cannula 2.00 04/27/22 22:42 94/48 (63) 04/27/22 20:52 95 Nasal Cannula 2.00 04/27/22 20:02 100 105/51 (69) 04/27/22 19:09 36.6 101 18 98/60 (73) 97 Nasal Cannula 2.00 04/27/22 19:00 100 04/27/22 15:24 36.5 100 20 113/51 (71) 97 Nasal Cannula 2.00 04/27/22 14:25 Nasal Cannula 3.00 04/27/22 14:25 36.9 20 108/59 (75) 94 Nasal Cannula 3.00 04/27/22 14:15 Nasal Cannula 3.00 04/27/22 14:10 20 105/52 (69) 94 OxyMask 4.00 04/27/22 14:00 OxyMask 4.00 04/27/22 14:00 20 100/49 (66) 94 OxyMask 4.00 04/27/22 13:50 20 113/44 (67) 92 OxyMask 6.00 04/27/22 13:45 OxyMask 4.00 04/27/22 13:40 20 121/93 (102) 94 OxyMask 6.00 04/27/22 13:30 20 126/70 (88) 96 OxyMask 6.00 04/27/22 13:30 OxyMask 6.00 04/27/22 13:26 37.0 20 118/85 (96) 96 OxyMask 6.00 04/27/22 13:26 OxyMask 6.00 04/27/22 08:09 Nasal Cannula 2.00 04/27/22 08:08 36.8 I & O 04/28/22 07:00 Intake Total 1300 ml Output Total 1600 ml Balance -300 ml L hip dressing intact no calf tenderness intact DF and PF of toes and ankle s/p L hip bipolar mobize as able SW for DC planning Final Diagnosis no complaints Vital Signs Date Time Temp Pulse Resp B/P (MAP) Pulse Ox O2 Delivery O2 Flow Rate FiO2 05/02/22 07:15 71 05/02/22 07:06 36.0 65 18 110/53 (72) 98 1.00 05/02/22 04:47 36.4 82 20 133/59 (83) 99 Nasal Cannula 1.00 05/02/22 01:00 82 05/01/22 23:37 36.2 73 20 112/64 (80) 98 Nasal Cannula 1.00 05/01/22 20:00 97 Nasal Cannula 2.50 05/01/22 19:13 36.3 76 20 121/59 (79) 98 Nasal Cannula 1.00 1.00 05/01/22 19:00 82 05/01/22 16:19 Nasal Cannula 1.00 05/01/22 15:04 36.2 84 18 118/58 (78) 96 Room Air 1.00 05/01/22 12:43 85 12/18/22 11:39 36.8 67 20 108/65 (79) 99 Nasal Cannula 1.00 I & O 05/02/22 07:00 Intake Total 1010 ml Output Total 700 ml Balance 310 ml L hip incision clean and dry no calf tenderness neg Lonnie's s/p L hip bipolar await placement MARIKA UNDERWOOD MD May 02, 2022 08:22
[2022-05-02] MEDS: SENNOSIDES 8.6 MG (SENOKOT) TAB PO SCH ×2 (08:54→20:42)
[2022-05-02] MEDS: ENOXAPARIN 40 MG/0.4 ML (LOVENOX) SYR SC SCH (08:54)
--- NOTE | 2022-05-02 09:01 | Progress Note - Cardiology ---
Cardiology SOAP Progress Note Subjective: Sitting up in recliner at the bedside No c/o CP, SOB, palpitations, syncope or near syncope C/O left hip discomfort Objective: I&O/Vital Signs 05/02/22 05/03/22 05/03/22 05/03/22 23:41 01:00 03:54 07:01 Temp 36.3 36.5 Pulse 68 89 81 71 Resp 18 18 B/P (MAP) 114/57 (76) 129/55 (79) Pulse Ox 91 94 O2 Delivery Room Air Room Air 05/03/22 05/03/22 07:39 08:00 Temp 36.4 Pulse 84 Resp 18 B/P (MAP) 130/58 (82) Pulse Ox 93 93 O2 Delivery Room Air Room Air 05/02/22 23:59 Intake Total 500 ml Output Total 400 ml Balance 100 ml Constitutional: well-developed, well-nourished, other (Oriented x 3, lethargic) Respiratory: No accessory muscle use, No respiratory distress; chest expansion is symmetric, chest is bilaterally symmetric, lungs clear to auscultation Cardiovascular: regular rate-rhythm; No JVD; S1 and S2, systolic murmur (3/6) Gastrointestional: No tender; soft, audible bowel sounds Extremities: no lower extremity edema bilateral Neurologic/Psychiatric: other (moves all extremities; did not attempt movement of left leg d/t fracture) Skin: No rash on exposed areas, No ulcerations on exposed areas Results/Procedures: Labs Laboratory Tests 05/03/22 08:04: Hemoglobin 11.1L, Hematocrit 34L A/P: Assessment: S/P non-syncopal fall resulting in left hip fracture - s/p left hip repair on 04-27-22 - management per Dr. Marcelo H/O Bio-prosthetic Aortic valve replacement at [facility] - Echocardiogram of 04-27-22 showed LVEF 55-60%. Grade 1 diastolic dysfunction. Mitral valve calcification. 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 PASP 50-55 mmHg HTN - but has been relatively hypotensive during the hospitalization, necessitating reduction in bp meds; currently normotensive Hypothyroidism, treated with thyroid replacement therapy Plan: Continue current medication regimen Monitor labs Continue DVT prophylaxis GENESIS HYMAN May 02, 2022 09:01
--- NOTE | 2022-05-02 09:31 | Physical Therapy Daily Note ---
PT Daily Note-Current Subjective Patient agrees to PT. Pain Numeric Pain Scale: 5-Moderate Pain Location: Left Location Body Site: Hip Pain Description: Acute Section J - Health Conditions 1. Rarely or not at all 2. Occasionally 3. Frequently 4. Almost constantly 8. Unable to answer Pain Effect on Sleep: 2 Pain Interference with Therapy: 2 Pain Interference w/Day-to-Day: 2 Mental Status Patient Orientation: Person, Time, Situation Attachments: [place] Catheter Transfers SCALE: Activities may be completed with or without assistive devices. 6-Twsylbxxtj-mvuchwo completes the activity by him/herself with no assistance from a helper. 5-Set-up or Clean-up Assistance-helper sets up or cleans up; patient completes activity. [place] assists only prior to or following the activity. 4-Supervision or Touching Assistance-helper provides verbal cues and/or touching/steadying and/or contact guard assistance as patient completes activity. Assistance may be provided throughout the activity or intermittently. 3-Partial/Moderate Assistance-helper does LESS THAN HALF the effort. [place] li fts, holds or supports trunk or limbs, but provides less than half the effort. 2-Substantial/Maximal Assistance-helper does MORE THAN HALF the effort. [place] lifts or holds trunk or limbs and provides more than half the effort. 9-Itmkcsaxr-lyydss does ALL the effort. Patient does none of the effort to complete the activity. Or, the assistance of 2 or more helpers is required for the patient to complete the activity. If activity was not attempted, code reason: 7-Patient Refused. 9-Not Applicable-not attempted and the patient did not perform the activity before the current illness, exacerbation or injury. 10-Not Attempted due to Environmental Limitations-(lack of equipment, weather restraints, etc.). 88-Not Attempted due to Medical Conditions or Safety Concerns. Lying to Sitting/Side of Bed(Q: 3 Sit to Stand (QC): 3 Chair/[place] Xfer(QC): 3 Weight Bearing Left Lower Extremity: Left Weight Bearing/Tolerated Gait Training Distance: 100' Walk 10 feet (QC): 3 Walk 50 ft with 2 Turns(QC): 3 Gait Assistive Device: FWW very slow and antalgic Exercises Supine Ex: Ankle pumps, Quad Set, Heel Slides Supine Reps: 15 (AAROM) Seated Therapy Exercises: Long arc quads Seated Reps: 15 Assessment Patient is up in recliner with breakfast in situ. Per patient, she plans on going to [place] for continued care. PT Reference Librarian Goals Reference Librarian Goals PT Reference Librarian Goals Time Frame: May 04, 2022 Roll Left & Right (QC): 4 Sit to Lying (QC): 4 Lying-Sitting on Side/Bed(QC): 4 Sit to Stand (QC): 4 Chair/Qbu-um-Frsli Xfer(QC): 4 Walk 10 feet (QC): 4 Walk 50ft with 2 Turns (QC): 4 PT Plan Treatment/Plan Treatment Plan: Continue Plan of Care Treatment Plan: Bed Mobility, Education, Functional Activity Ciera, Functional Strength, Gait, Safety, Therapeutic Exercise, Transfers Treatment Duration: May 04, 2022 Frequency: 11 times per week Estimated Hrs Per Day: .25 hour per day Patient and/or Family Agrees t: Yes Time Time In: 837 Time Out: 900 DATE: May 02, 2022 Total Billed Treatment Time: 23 Total Billed Treatment 1 visit EX 13 min GT 10 min EUSEBIA XAVIER PT May 02, 2022 09:31
--- NOTE | 2022-05-02 11:14 | Occupational Ther Daily Note ---
OT Current Status-Daily Note Subjective Pt alert, sitting EOB with nrsg. Pt agrees to therapy. No c/o pain when sitting still. Mental Status/Objective Patient Orientation: Person, Place, Situation Attachments: Mancuso Catheter, IV, Oxygen (1L) ADL-Treatment Per nrsg report, nrsg assisted pt with shower. Pt able to complete majority of shower by self after set up. Assist to complete footwear, per nrsg. Pt required mod A for EOB to supine. Max A for bed mobility. After session, pt lying in bed with call light/phone in reach. All needs met in room. Therapy Code Descriptions/Definitions Functional [place] Measure: 0=Not Assessed/NA 4=Minimal Assistance 1=Total Assistance 5=Supervision or Setup 2=Maximal Assistance 6=Modified [place] 3=Moderate Assistance 7=Complete IndependenceSCALE: Activities may be completed with or without assistive devices. 1-Bxmktptzwy-qahvuzw completes the activity by him/herself with no assistance from a helper. 5-Set-up or Clean-up Assistance-helper sets up or cleans up; patient completes activity. [place] assists only prior to or following the activity. 4-Supervision or Touching Assistance-helper provides verbal cues and/or touching/steadying and/or contact guard assistance as patient completes activity. Assistance may be provided throughout the activity or intermittently. 3-Partial/Moderate Assistance-helper does LESS THAN HALF the effort. [place] lifts, holds or supports trunk or limbs, but provides less than half the effort. 2-Substantial/Maximal Assistance-helper does MORE THAN HALF the effort. [place] lifts or holds trunk or limbs and provides more than half the effort. 4-Yfizxvagr-hyqujq does ALL the effort. Patient does none of the effort to complete the activity. Or, the assistance of 2 or more helpers is required for the patient to complete the activity. If activity was not attempted, code reason: 7-Patient Refused. 9-Not Applicable-not attempted and the patient did not perform the activity before the current illness, exacerbation or injury. 10-Not Attempted due to Environmental Limitations-(lack of equipment, weather restraints, etc.). 88-Not Attempted due to Medical Conditions or Safety Concerns. OT Care Home Goals Butcher Assistant Goals Time Frame: May 13, 2022 Eating (QC): 6 Oral Hygiene (QC): 6 Toileting Hygiene (QC): 4 Shower/Bathe Self (QC): 4 Upper Body Dressing (QC): 5 Lower Body Dressing (QC): 4 On/Off Footwear (QC): 4 Additional Goals: 1-Demonstrate ADL Tasks, 2-Verbalize Understanding, 3-ImproveStrength/Ciera 1=Demonstrate adherence to instructed precautions during ADL tasks. 2=Patient will verbalize/demonstrate understanding of assistive devices/modifications for ADL. 3=Patient will improve strength/tolerance for activity to enable patient to perform ADL's. OT Education/Plan Problem List/Assessment Assessment: Decreased Activ Tolerance, Impaired Self-Care Skills Discharge Recommendations Plan/Recommendations: Continue POC Treatment Plan/Plan of Care Patient would benefit from OT for education, treatment and training to promote independence in ADL's, mobility, safety and/or upper extremity function for ADL's. Plan of Care: ADL Retraining, Functional Mobility, UE Funct Exercise/Act Treatment Duration: May 13, 2022 Frequency: 3 times per week (3-5 times per week) Estimated Hrs Per Day: .25 hour per day Agreement: Yes Rehab Potential: Fair Time Start Time: 10:25 Stop Time: 10:35 DATE: May 02, 2022 Total Time Billed (hr/min): 10 Billed Treatment Time 1 visit-FA 1 (10 min) PAM TOVAR May 02, 2022 11:14
[2022-05-02 11:22] VITALS: BP 123/53
--- NOTE | 2022-05-02 14:01 | Physical Therapy Daily Note ---
PT Daily Note-Current Subjective Patient reports 10/10 left hip pain. RN aware. Pain Numeric Pain Scale: 10-Worst Possible Pain Location: Left Location Body Site: Hip Section J - Health Conditions 1. Rarely or not at all 2. Occasionally 3. Frequently 4. Almost constantly 8. Unable to answer Pain Effect on Sleep: 2 Pain Interference with Therapy: 4 Pain Interference w/Day-to-Day: 4 Mental Status Patient Orientation: Person, Time, Situation Attachments: Mancuso Catheter Transfers SCALE: Activities may be completed with or without assistive devices. 1-Omdiaotdfz-swhfewb completes the activity by him/herself with no assistance from a helper. 5-Set-up or Clean-up Assistance-helper sets up or cleans up; patient completes activity. [place] assists only prior to or following the activity. 4-Supervision or Touching Assistance-helper provides verbal cues and/or touching/steadying and/or contact guard assistance as patient completes activity. Assistance may be provided throughout the activity or intermittently. 3-Partial/Moderate Assistance-helper does LESS THAN HALF the effort. [place] lifts, holds or supports trunk or limbs, but provides less than half the effort. 2-Substantial/Maximal Assistance-helper does MORE THAN HALF the effort. [place] lifts or holds trunk or limbs and provides more than half the effort. 4-Ovqitbtbl-flizml does ALL the effort. Patient does none of the effort to complete the activity. Or, the assistance of 2 or more helpers is required for the patient to complete the activity. If activity was not attempted, code reason: 7-Patient Refused. 9-Not Applicable-not attempted and the patient did not perform the activity before the current illness, exacerbation or injury. 10-Not Attempted due to Environmental Limitations-(lack of equipment, weather restraints, etc.). 88-Not Attempted due to Medical Conditions or Safety Concerns. Sit to Stand (QC): 2 Weight Bearing Left Lower Extremity: Left Weight Bearing/Tolerated Gait Training Distance: 10' Walk 10 feet (QC): 2 Gait Assistive Device: FWW patient unable to maintain standing after 10' due to left hip pain Assessment Patient up in recliner after gait training. Patient unable to tolerate PT session this p.m. RN is aware of patient's pain. PT Pattern Clerk Goals [place] Goals PT Pattern Clerk Goals Time Frame: May 04, 2022 Roll Left & Right (QC): 4 Sit to Lying (QC): 4 Lying-Sitting on Side/Bed(QC): 4 Sit to Stand (QC): 4 Chair/Ske-ak-Cbked Xfer(QC): 4 Walk 10 feet (QC): 4 Walk 50ft with 2 Turns (QC): 4 PT Plan Treatment/Plan Treatment Plan: Continue Plan of Care Treatment Plan: Bed Mobility, Education, Functional Activity [place], Functional Strength, Gait, Safety, Therapeutic Exercise, Transfers Treatment Duration: May 04, 2022 Frequency: 11 times per week Estimated Hrs Per Day: .25 hour per day Patient and/or Family Agrees t: Yes Time Time In: 1331 Time Out: 1342 DATE: May 02, 2022 Total Billed Treatment Time: 11 Total Billed Treatment 1 visit GT 11 min EUSEBIA XAVIER PT May 02, 2022 14:01
[2022-05-02 15:35] VITALS: BP 129/61
--- NOTE | 2022-05-02 16:54 | Progress Note - Cardiology ---
Cardiology SOAP Progress Note Subjective: No cp or palp or syncope No shortness of breath Gen weakness No focal weakness No n/v/d Objective: I&O/Vital Signs 05/02/22 05/02/22 05/02/22 05/02/22 07:06 07:15 08:00 11:22 Temp 36.0 36.4 Pulse 65 71 71 Resp 18 20 B/P (MAP) 110/53 (72) 123/53 (76) Pulse Ox 98 98 98 O2 Delivery Nasal Cannula O2 Flow Rate 1.00 1.00 1.00 05/02/22 05/02/22 12:58 15:35 Temp 36.7 Pulse 89 71 Resp 18 B/P (MAP) 129/61 (83) Pulse Ox 97 O2 Delivery Room Air 05/02/22 00:00 Intake Total 960 ml Output Total 350 ml Balance 610 ml Constitutional: well-developed, well-nourished, other (Oriented x 3, lethargic) Respiratory: No accessory muscle use, No respiratory distress; chest expansion is symmetric, chest is bilaterally symmetric, lungs clear to auscultation Cardiovascular: regular rate-rhythm; No JVD; S1 and S2, systolic murmur (3/6) Gastrointestional: No tender; soft, audible bowel sounds Extremities: no lower extremity edema bilateral Neurologic/Psychiatric: other (moves all extremities; did not attempt movement of left leg d/t fracture) Skin: No rash on exposed areas, No ulcerations on exposed areas Results/Procedures: Labs Laboratory Tests 05/01/22 05:00 A/P: Assessment: S/P non-syncopal fall resulting in left hip fracture - s/p left hip repair on 04-27-22 - management per Dr. Marcelo H/O Bio-prosthetic Aortic valve replacement at [facility] - Echocardiogram of 04-27-22 showed LVEF 55-60%. Grade 1 diastolic dysfunction. Mitral valve calcification. 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 PASP 50-55 mmHg HTN - but has been relatively hypotensive during the hospitalization, necessitating reduction in bp meds; currently normotensive Hypothyroidism, treated with thyroid replacement therapy Plan: Continue current medication regimen Monitor labs Continue DVT prophylaxis GIANNA SCHAFER MD FACP [facility] May 02, 2022 16:54
--- NOTE | 2022-05-02 17:55 | Progress Note - Hospitalist ---
Subjective HPI/CC On Admission Date Seen by Provider: May 02, 2022 Time Seen by Provider: 10:35 Subjective/Events-last exam She is feeling ok. She has no complaints. Objective Exam Vital Signs Vital Signs Date Time Temp Pulse Resp B/P (MAP) Pulse Ox O2 Delivery O2 Flow Rate FiO2 05/02/22 15:35 36.7 71 18 129/61 (83) 97 Room Air 05/02/22 11:22 1.00 Capillary Refill : Less Than 3 Seconds General Appearance: No Apparent Distress, WD/WN Respiratory: Lungs Clear, No Respiratory Distress Cardiovascular: Regular Rate, Rhythm, No Murmur Gastrointestinal: Normal Bowel Sounds, Soft Extremity: Normal Inspection, No Pedal Edema Neurologic/Psychiatric: Alert, Normal Mood/Affect Skin: Normal Color, Warm/Dry Results/Procedures Lab Patient resulted labs reviewed. Assessment/Plan Assessment and Plan Assess & Plan/Chief Complaint Left femoral neck fracture s/p surgical repair Orthopedic surgery following Continue pain and bowel regimen Incentive spirometry PT/OT Remove champion Social work assisting with discharge planning HTN Aortic valve replaced BP well controlled, trend Cardiology following Hypothyroidism Continue levothyroxine DVT ppx; Lovenox Hypokalemia, resolved Diagnosis/Problems Diagnosis/Problems (1) Closed left hip fracture Status: Acute (2) HTN (hypertension) Status: Chronic (3) Hypothyroidism Status: Chronic (4) Anemia Status: Chronic NIKUNJ LEWIS MD May 02, 2022 17:55
[2022-05-02] MEDS ORDERED: ARTIFICAL TEARS 0.4 ML UNIT DOSE (REFRESH PLUS) OU PRN (18:00)
[2022-05-02 19:04] VITALS: BP 137/56
[2022-05-02 23:41] VITALS: BP 114/57
[2022-05-03 03:54] VITALS: BP 129/55
[2022-05-03] MEDS: HYDROcodone/APAP 7.5 MG/325 MG (LORTAB, LORCET PLUS) TABLET PO PRN (06:14)
[2022-05-03] MEDS: LEVOTHYROXINE 88 MCG (LEVOTHORID) TAB PO SCH (06:14)
--- NOTE | 2022-05-03 07:00 | Progress Note ---
Standard Progress Note Progress Notes/Assess & Plan Date Seen by a Provider: May 03, 2022 Time Seen by a Provider: 06:59 Progress/Assessment & Plan no complaints Laboratory Tests Test 04/28/22 05:21 Range/Units Hemoglobin 12.0 # 11.5-16.0 g/dL Hematocrit 36 35-52 % Sodium Level 133 L 135-145 MMOL/L Potassium Level 3.7 3.6-5.0 MMOL/L Chloride Level 100 98-107 MMOL/L Carbon Dioxide Level 25 21-32 MMOL/L Anion Gap 8 5-14 MMOL/L Blood Urea Nitrogen 7 7-18 MG/DL Creatinine 0.69 0.60-1.30 MG/DL Estimat Glomerular Filtration Rate 85 BUN/Creatinine Ratio 10 Glucose Level 118 H 70-105 MG/DL Calcium Level 7.8 L 8.5-10.1 MG/DL Magnesium Level 1.4 L 1.6-2.4 MG/DL Vital Signs Date Time Temp Pulse Resp B/P (MAP) Pulse Ox O2 Delivery O2 Flow Rate FiO2 04/28/22 07:26 37.1 97 18 95/50 (65) 95 Nasal Cannula 3.00 04/28/22 07:13 99 04/28/22 04:43 102/55 (71) 04/28/22 03:05 37.4 100 20 100/53 (69) 95 Nasal Cannula 3.00 04/28/22 01:00 109 04/27/22 23:22 37.6 100 20 107/59 (75) 93 Nasal Cannula 2.00 04/27/22 23:07 102 16 100/53 (69) 94 Nasal Cannula 2.00 04/27/22 22:59 101 16 92/51 (65) 95 Nasal Cannula 2.00 04/27/22 22:42 94/48 (63) 04/27/22 20:52 95 Nasal Cannula 2.00 04/27/22 20:02 100 105/51 (69) 04/27/22 19:09 36.6 101 18 98/60 (73) 97 Nasal Cannula 2.00 04/27/22 19:00 100 04/27/22 15:24 36.5 100 20 113/51 (71) 97 Nasal Cannula 2.00 04/27/22 14:25 Nasal Cannula 3.00 04/27/22 14:25 36.9 20 108/59 (75) 94 Nasal Cannula 3.00 04/27/22 14:15 Nasal Cannula 3.00 04/27/22 14:10 20 105/52 (69) 94 OxyMask 4.00 04/27/22 14:00 OxyMask 4.00 04/27/22 14:00 20 100/49 (66) 94 OxyMask 4.00 04/27/22 13:50 20 113/44 (67) 92 OxyMask 6.00 04/27/22 13:45 OxyMask 4.00 04/27/22 13:40 20 121/93 (102) 94 OxyMask 6.00 04/27/22 13:30 20 126/70 (88) 96 OxyMask 6.00 04/27/22 13:30 OxyMask 6.00 04/27/22 13:26 37.0 20 118/85 (96) 96 OxyMask 6.00 04/27/22 13:26 OxyMask 6.00 04/27/22 08:09 Nasal Cannula 2.00 04/27/22 08:08 36.8 I & O 04/28/22 07:00 Intake Total 1300 ml Output Total 1600 ml Balance -300 ml L hip dressing intact no calf tenderness intact DF and PF of toes and ankle s/p L hip bipolar mobize as able SW for DC planning Final Diagnosis no complaints PE without change re L hip s/p L hip bipolar await placement MARIKA UNDERWOOD MD May 03, 2022 07:00
[2022-05-03 07:39] VITALS: BP 130/58
[2022-05-03] MEDS: SENNOSIDES 8.6 MG (SENOKOT) TAB PO SCH (08:10)
[2022-05-03] MEDS: ENOXAPARIN 40 MG/0.4 ML (LOVENOX) SYR SC SCH (08:10)
[2022-05-03 08:12] LABS: HEMOGLOBIN 11.1 g/dL (11.5-16.0)
--- NOTE | 2022-05-03 08:59 | Occupational Ther Daily Note ---
OT Current Status-Daily Note Subjective Pt alert, finishing up with PT. Pt reluctantly agrees to therapy. Pt c/o pain, nrsg aware. Mental Status/Objective Patient Orientation: Person, Place, Time, Situation Attachments: IV ADL-Treatment Pt declines to complete oral care or other ADLs. Pt able to use good fine motor skills and strength to open containers/packages to set up own meal then uses regular utensils to eat. After session, pt sitting in recliner with call light/phone in reach. All needs met in room. Therapy Code Descriptions/Definitions Functional [place] Measure: 0=Not Assessed/NA 4=Minimal Assistance 1=Total Assistance 5=Supervision or Setup 2=Maximal Assistance 6=Modified [place] 3=Moderate Assistance 7=Complete IndependenceSCALE: Activities may be completed with or without assistive devices. 8-Vhwkdlzljb-umqjkke completes the activity by him/herself with no assistance from a helper. 5-Set-up or Clean-up Assistance-helper sets up or cleans up; patient completes activity. [place] assists only prior to or following the activity. 4-Supervision or Touching Assistance-helper provides verbal cues and/or touching/steadying and/or contact guard assistance as patient completes activity. Assistance may be provided throughout the activity or intermittently. 3-Partial/Moderate Assistance-helper does LESS THAN HALF the effort. [place] lifts, holds or supports trunk or limbs, but provides less than half the effort. 2-Substantial/Maximal Assistance-helper does MORE THAN HALF the effort. [place] lifts or holds trunk or limbs and provides more than half the effort. 9-Omynwnycf-zefhzh does ALL the effort. Patient does none of the effort to complete the activity. Or, the assistance of 2 or more helpers is required for the patient to complete the activity. If activity was not attempted, code reason: 7-Patient Refused. 9-Not Applicable-not attempted and the patient did not perform the activity before the current illness, exacerbation or injury. 10-Not Attempted due to Environmental Limitations-(lack of equipment, weather restraints, etc.). 88-Not Attempted due to Medical Conditions or Safety Concerns. Eating (QC): 6 OT Imaging Account Manager Goals Imaging Account Manager Goals Time Frame: May 13, 2022 Eating (QC): 6 Oral Hygiene (QC): 6 Toileting Hygiene (QC): 4 Shower/Bathe Self (QC): 4 Upper Body Dressing (QC): 5 Lower Body Dressing (QC): 4 On/Off Footwear (QC): 4 Additional Goals: 1-Demonstrate ADL Tasks, 2-Verbalize Understanding, 3-ImproveStrength/Ciera 1=Demonstrate adherence to instructed precautions during ADL tasks. 2=Patient will verbalize/demonstrate understanding of assistive devices/modifications for ADL. 3=Patient will improve strength/tolerance for activity to enable patient to perform ADL's. OT Education/Plan Problem List/Assessment Assessment: Decreased Activ Tolerance, Impaired Self-Care Skills Discharge Recommendations Plan/Recommendations: Continue POC Treatment Plan/Plan of Care Patient would benefit from OT for education, treatment and training to promote independence in ADL's, mobility, safety and/or upper extremity function for ADL's. Plan of Care: ADL Retraining, Functional Mobility, UE Funct Exercise/Act Treatment Duration: May 13, 2022 Frequency: 3 times per week (3-5 times per week) Estimated Hrs Per Day: .25 hour per day Agreement: Yes Rehab Potential: Fair Time Start Time: 08:53 Stop Time: 09:01 DATE: May 03, 2022 Total Time Billed (hr/min): 8 Billed Treatment Time 1 visit-ADL 1 (8 min) PAM TOVAR May 03, 2022 08:59
--- NOTE | 2022-05-03 09:44 | Physical Therapy Daily Note ---
PT Daily Note-Current Subjective Patient agrees to PT. Pain Numeric Pain Scale: 7 Location: Left Location Body Site: Hip Pain Description: Acute Section J - Health Conditions 1. Rarely or not at all 2. Occasionally 3. Frequently 4. Almost constantly 8. Unable to answer Pain Effect on Sleep: 2 Pain Interference with Therapy: 4 Pain Interference w/Day-to-Day: 4 Mental Status Patient Orientation: Person Transfers SCALE: Activities may be completed with or without assistive devices. 3-Ipueocvrar-sqoxtbb completes the activity by him/herself with no assistance from a helper. 5-Set-up or Clean-up Assistance-helper sets up or cleans up; patient completes activity. [place] assists only prior to or following the activity. 4-Supervision or Touching Assistance-helper provides verbal cues and/or touching/steadying and/or contact guard assistance as patient completes activity. Assistance may be provided throughout the activity or intermittently. 3-Partial/Moderate Assistance-helper does LESS THAN HALF the effort. [place] lifts, holds or supports trunk or limbs, but provides less than half the effort. 2-Substantial/Maximal Assistance-helper does MORE THAN HALF the effort. [place] lifts or holds trunk or limbs and provides more than half the effort. 3-Pgxchfrjk-pvuams does ALL the effort. Patient does none of the effort to complete the activity. Or, the assistance of 2 or more helpers is required for the patient to complete the activity. If activity was not attempted, code reason: 7-Patient Refused. 9-Not Applicable-not attempted and the patient did not perform the activity before the current illness, exacerbation or injury. 10-Not Attempted due to Environmental Limitations-(lack of equipment, weather restraints, etc.). 88-Not Attempted due to Medical Conditions or Safety Concerns. Lying to Sitting/Side of Bed(Q: 3 Sit to Stand (QC): 3 Chair/Twu-je-Qztok Xfer(QC): 3 Weight Bearing Left Lower Extremity: Left Weight Bearing/Tolerated Gait Training Distance: 50' Walk 10 feet (QC): 3 Walk 50 ft with 2 Turns(QC): 3 Gait Assistive Device: FWW very, very slow, antalgic gait sequence/step to Exercises Supine Ex: Ankle pumps, Heel Slides Supine Reps: 15 (AAROM) Seated Therapy Exercises: Long arc quads Seated Reps: 15 (AAROM) Assessment Patient has increase c/o pain on this date. RN notified. Patient is up in recliner with needs met. PT to continue to increase activity as tolerated by patient. PT Charge Account Clerk Goals [place] Goals PT Charge Account Clerk Goals Time Frame: May 04, 2022 Roll Left & Right (QC): 4 Sit to Lying (QC): 4 Lying-Sitting on Side/Bed(QC): 4 Sit to Stand (QC): 4 Chair/Zkh-aq-Zxeyq Xfer(QC): 4 Walk 10 feet (QC): 4 Walk 50ft with 2 Turns (QC): 4 PT Plan Treatment/Plan Treatment Plan: Continue Plan of Care Treatment Plan: Bed Mobility, Education, Functional Activity Ciera, Functional Strength, Gait, Safety, Therapeutic Exercise, Transfers Treatment Duration: May 04, 2022 Frequency: 11 times per week Estimated Hrs Per Day: .25 hour per day Patient and/or Family Agrees t: Yes Time Time In: 828 Time Out: 851 DATE: May 03, 2022 Total Billed Treatment Time: 23 Total Billed Treatment 1 visit GT 15 min EX 8 min EUSEBIA XAVIER PT May 03, 2022 09:44
--- NOTE | 2022-05-03 09:56 | Progress Note - Cardiology ---
Cardiology SOAP Progress Note Subjective: Sitting up in recliner at the bedside C/O gen discomfort No c/o CP, palpitations, syncope or near syncope Objective: I&O/Vital Signs 05/02/22 05/03/22 05/03/22 05/03/22 23:41 01:00 03:54 07:01 Temp 36.3 36.5 Pulse 68 89 81 71 Resp 18 18 B/P (MAP) 114/57 (76) 129/55 (79) Pulse Ox 91 94 O2 Delivery Room Air Room Air 05/03/22 05/03/22 07:39 08:00 Temp 36.4 Pulse 84 Resp 18 B/P (MAP) 130/58 (82) Pulse Ox 93 93 O2 Delivery Room Air Room Air 05/03/22 00:00 Intake Total 500 ml Output Total 400 ml Balance 100 ml Constitutional: well-developed, well-nourished, other (Oriented x 3, lethargic) Respiratory: No accessory muscle use, No respiratory distress; chest expansion is symmetric, chest is bilaterally symmetric, lungs clear to auscultation Cardiovascular: regular rate-rhythm; No JVD; S1 and S2, systolic murmur (3/6) Gastrointestional: No tender; soft, audible bowel sounds Extremities: no lower extremity edema bilateral Neurologic/Psychiatric: other (moves all extremities; did not attempt movement of left leg d/t fracture) Skin: No rash on exposed areas, No ulcerations on exposed areas Results/Procedures: Labs Laboratory Tests 05/03/22 08:04: Hemoglobin 11.1L, Hematocrit 34L Laboratory Tests 05/03/22 08:04 A/P: Assessment: S/P non-syncopal fall resulting in left hip fracture - s/p left hip repair on 04-27-22 - management per Dr. Marcelo H/O Bio-prosthetic Aortic valve replacement at [facility] - Echocardiogram of 04-27-22 showed LVEF 55-60%. Grade 1 diastolic dysfunction. Mitral valve calcification. 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 PASP 50-55 mmHg HTN - but has been relatively hypotensive during the hospitalization, necessitating reduction in bp meds; currently normotensive Hypothyroidism, treated with thyroid replacement therapy Plan: Continue current medication regimen Monitor labs Continue DVT prophylaxis Ok to discharge from cardiac stand point GENESIS HYMAN May 03, 2022 09:56
[2022-05-03 11:10] VITALS: BP 110/51
[2022-05-03 13:50] VITALS: BP 110/51
== END 2022-05-03 13:50 | disposition swing bed (61) | DRG 522 ==
LOC: EDUNIT# 02:37 → ER 02:38 → 4TH 03:50
PROVIDERS: ADMIT Internal Medicine; ATTEND Internal Medicine
PROC: 0SRS0JA Replacement of Left Hip Joint, Femoral Surface with Synthetic Substitute, Uncemented, Open Approach (ICD-10-PCS; principal; 2022-04-27 12:03)
DX: S72.002A Fracture of unspecified part of neck of left femur, initial encounter for closed fracture (principal); E87.1 Hypo-osmolality and hyponatremia; W06.XXXA Fall from bed, initial encounter; Z96.653 Presence of artificial knee joint, bilateral; Z95.2 Presence of prosthetic heart valve; E78.00 Pure hypercholesterolemia, unspecified; I10 Essential (primary) hypertension; K21.9 Gastro-esophageal reflux disease without esophagitis; M19.90 Unspecified osteoarthritis, unspecified site; E03.9 Hypothyroidism, unspecified; Z79.82 Long term (current) use of aspirin; Z79.890 Hormone replacement therapy; Z79.899 Other long term (current) drug therapy; I25.10 Atherosclerotic heart disease of native coronary artery without angina pectoris; E87.6 Hypokalemia; I27.20 Pulmonary hypertension, unspecified; D64.9 Anemia, unspecified; I95.9 Hypotension, unspecified
CPT/HCPCS: 36415; 71045; 73501; 80048; 80053; 81000; 83735; 85014; 85018; 85025; 85610; 85730; 93005; 93041; 93306; 94664